=== PATIENT | male | born 1940 | race Caucasian/White ===

== ENCOUNTER 2016-07-20 02:12 | Observation (INO) | payer MEDICARE, BC ==
[~2016-07-20] VITALS: Ht 191.8 cm; Wt 111.4 kg
[2016-07-20] VITALS (8 sets, daily range): BP systolic 86–125; BP diastolic 55–70; PULSE 72–116; RESP 14–20; TEMP 97.6–98.8; O2SAT 92–98; Ht 191.8 cm; Wt 111.4 kg
[~2016-07-20 02:12] MED LIST: GLYB2.5T5 PO; METF10002 PO; WARF5TAB76 PO
--- OUTSIDE RECORDS SUMMARY | 2016-07-20 02:25 | XMS REPORT | Referral Summary ---
Author Author [facility] Organization [facility] Address Unknown Phone Unavailable Care Team Providers Care Clinical Dermatologist Name Role Phone Cj Hilliard Primary Care Physician [phone] Encounter VC Date(s): 08/04/15 - 08/04/15 [facility] [address] [place] [address] [place] [id number] Discharge Diagnosis: CA skin, basal cell Discharge Disposition: -Home or Self Care Attending Physician: Frederick Couch MD Admitting Physician: Frederick Couch MD Referring Physician: Markie Hilliard MD Vital Signs Most recent to 1 oldest [Reference Range]: Temperature Tympanic 36.6 degC [36.6-38.1 degC] (08/04/15 9:23 AM) Blood Pressure 118/68 mmHg [90-140/60-90 mmHg] (08/04/15 9:23 AM) Problem List Condition Effective Dates Status Health Status Informant CA skin, basal < 05/29/14 Resolved cell(Confirmed) Hypotestosteronism(C Active onfirmed)1 Right leg Active DVT(Confirmed) Diabetic Active neuropathy(Confirmed ) Fatigue(Confirmed) Active Anticoagulant Active long-term use(Confirmed) Personal history of Active DVT (deep vein thrombosis)(Confirme d) Hyperlipemia(Confirm Active ed) Myofascitis(Confirme < 05/19/14 Resolved d)2 Osteoarthritis(Confi Active rmed) Muscle weakness of Active lower extremity(Confirmed) Pulmonary Active embolus(Confirmed) Spinal 01/19/14 - 05/19/14 Resolved enthesopathy(Confirm ed)3 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 Injected Decadron 4, Depomedrol 80 09/30/12 32 trigger pt injections 4scalp lesion. Wide excision. Margin negative except actinic keratosis Allergies, Adverse Reactions, Alerts No Known Medication Allergies Medications acetaminophen 500 mg oral tablet 2 tabs, Oral, q6hr, as needed for pain, 0 Refill(s) Start Date: 04/27/14 Status: Ordered glimepiride 1 mg oral tablet 1 mg 1 tabs, Oral, Daily, # 90 tabs, 0 Refill(s), Pharmacy: [id number], 1 tabs Oral Daily Start Date: 06/28/15 Status: Ordered metFORMIN 1000 mg oral tablet 1,000 mg 1 tabs, Oral, BID, # 180 tabs, 3 Refill(s), Pharmacy: [facility], 1 tabs Oral BID Start Date: 06/28/15 Status: Ordered True track test strips True track test strips, See Instructions, check blood sugar once a day. DX: 250.00, # 100 Each, 2 Refill(s), Pharmacy: [facility] [place] [id number], check blood sugar once a day. DX: 250.00 Start Date: 11/30/14 Status: Ordered warfarin 2 mg oral tablet See Instructions, 3 tabs mg Oral 4 days per week or as directed, # 90 tabs, 6 Refill(s), Pharmacy: [facility], 3 tabs mg Oral 4 days per week or as directed Start Date: 09/29/14 Status: Ordered warfarin 5 mg oral tablet 5 mg 1 tabs, Oral, 3x/Wk, Take 1 tab 3 times a week or as directed, # 90 tabs, 3 Refill(s), Pharmacy: [facility], 1 tabs Oral 3x/Wk,Instr:Take 1 tab 3 times a week or as directed Start Date: 09/29/14 Status: Ordered Results No data available for this section Immunizations Vaccine Date Refusal Reason influenza virus vaccine, inactivated 02/06/14 zoster vaccine live 04/27/14 Procedures Procedure Date Related Diagnosis Body Site Excision of lesion of fascia of hand1 1BASEL CELL OF LEFT HAND EXCISED 05/28 Social History Social History Type Response Smoking Status Never smoker Assessment and Plan Extracted from: Title: Office Visit Note Author: Frederick Couch MD Date: 08/04/15 Assessment/Plan 1.CA skin, basal cell Ordered: Office Visit Level 3 Est 82454 Plan:Option ofreexcision versusclose clinical follow-up was discussed with patient. Patient elected to proceed withsurgical excision. I did go over with the patient his pathology report that returned revealing that of a basal cell carcinomawith positive margins. I informed the patient that as a general rule basal cell carcinoma does not have the potential to metastasize. I informed the patientthat I felt that we had a few options available to us at this time. One option would be to proceed with reexcisionto obtain clear margins. Second option would be to follow him from a clinical standpointand only proceed with reexcisionif there was evidence for recurrence. Pros and cons of these options were discussed with the patient. Patient understood and wishedto proceed with reexcision. The area of concern was prepped and draped in sterile fashion. One percent lidocaine with epinephrine was injected circumferentially around the skin lesion. The prior surgical incision sitewas excised in a standard elliptical fashion. The elliptical incision was 1.5 cm in width and 3 cm in length. Hemostasis obtained with electrocautery. The incision was closed in layers with 4-0 Vicryl subcuticular stitches and 4-0 Prolene for skin edges. The patient was given post excision instruction and told to return to the clinic in 10-14 days, or sooner if any concerns arise.
--- OUTSIDE RECORDS SUMMARY | 2016-07-20 02:25 | XMS REPORT | Referral Summary ---
Author Author [facility] Organization [facility] Address Unknown Phone Unavailable Care Team Providers Care Inspector Fabric Name Role Phone Cj Hilliard Primary Care Physician [phone] Encounter VC Date(s): 12/15/15 - 12/15/15 [facility], [address] [place] [id number] Discharge Disposition: 01-Home or Self Care Attending Physician: Markie Hilliard MD Admitting Physician: Markie Hilliard MD Vital Signs Most recent to 1 oldest [Reference Range]: Blood Pressure 128/70 mmHg [90-140/60-90 mmHg] (12/15/15 9:44 AM) Problem List Condition Effective Dates Status Health Status Informant CA skin, basal < 05/29/14 Resolved cell(Confirmed) Chronic back Active pain(Confirmed) Hypotestosteronism(C Active onfirmed)1 Right leg Active DVT(Confirmed) Diabetic Active neuropathy(Confirmed ) Fatigue(Confirmed) Active Anticoagulant Active long-term use(Confirmed) Personal history of Active DVT (deep vein thrombosis)(Confirme d) Chronic right hip Active pain(Confirmed) Hyperlipemia(Confirm Active ed) Myofascitis(Confirme < 05/19/14 Resolved d)2 Osteoarthritis(Confi Active rmed) Muscle weakness of Active lower extremity(Confirmed) Pulmonary Active embolus(Confirmed) Solar Active elastosis(Confirmed) Spinal 01/19/14 - 05/19/14 Resolved enthesopathy(Confirm ed)3 [...] 0 Refill(s) Start Date: 04/27/14 Status: Ordered Amaryl 1 mg oral tablet 1 mg 1 tabs, Oral, BID, NOTE DOSE CHANGE, # 180 tabs, 0 Refill(s), [facility], 1 tabs Oral BID,x90 days,Instr:NOTE DOSE CHANGE Start Date: 09/08/15 Stop Date: 12/07/15 Status: Ordered metFORMIN 1000 mg oral tablet 1,000 mg 1 tabs, Oral, BID, DX: E11.9, # 180 tabs, 0 Refill(s), Pharmacy: [facility], 1 tabs Oral BID,Instr:DX: E11.9 Start Date: 11/09/15 Status: Ordered Test Strips Test Strips, See Instructions, Uses Freestyle [place] Lite to check blood glucose daily for ICD 10-E11.9. Do not fill until patient requests. thanks, # 100 Each, 4 Refill(s), [facility] [address], Uses Freestyle [place] Lite to check... Start Date: 12/15/15 Status: Ordered True track test strips True track test strips, See Instructions, check blood sugar once a day. DX: 250.00, # 100 Each, 2 Refill(s), Pharmacy: [facility] [id number], check blood sugar once a day. DX: 250.00 Start Date: 11/30/14 Status: Ordered warfarin 2 mg oral tablet See Instructions, TAKE THREE TABLETS BY MOUTH ONCE DAILY FOR 4 DAYS PER WEEK OR DIRECTED, # 90 tabs, eRx: [facility], TAKE THREE TABLETS BY MOUTH ONCE DAILY FOR 4 DAYS PER WEEK OR DIRECTED Start Date: 11/26/15 Status: Ordered Results Coagulation Most recent to 1 oldest [Reference Range]: PT Venous (12/15/15 10:20 AM) INR [0.8-1.2] 2.4 1 *HI* (12/15/15 10:20 AM) 1Result Comment: Normal (no anticoagulant): 0.8 - 1.2 Units Routine Therapeutic Range: 2.0 - 3.0 Units High Risk Therapeutic Range: 2.5 - 3.5 Units Chemistry Most recent to 1 oldest [Reference Range]: Sodium Lvl [135-144 140 mEq/L mEq/L] (12/15/15 10:20 AM) Potassium Lvl 4.4 mEq/L [3.5-5.2 mEq/L] (12/15/15 10:20 AM) Chloride [99-111 105 mEq/L mEq/L] (12/15/15 10:20 AM) CO2 [23-31 mEq/L] 27 mEq/L (12/15/15 10:20 AM) AGAP [3-20] 8 (12/15/15 10:20 AM) BUN [8-26 mg/dL] 14 mg/dL (12/15/15 10:20 AM) Glucose Lvl [70-99 147 mg/dL mg/dL] *HI* (12/15/15 10:20 AM) Creatinine Lvl 0.93 mg/dL [0.72-1.25 mg/dL] (12/15/15 10:20 AM) eGFR [>60 mL/min] >60 mL/min 1 (12/15/15 10:20 AM) Calcium Lvl 9.1 mg/dL [8.9-10.5 mg/dL] (12/15/15 10:20 AM) Albumin Lvl [3.4-4.8 4.1 gm/dL gm/dL] (12/15/15 10:20 AM) Total Protein 6.4 gm/dL 2 [6.0-7.6 gm/dL] (12/15/15 10:20 AM) Globulin [1.8-4.0 2.3 gm/dL gm/dL] (12/15/15 10:20 AM) ALT [0-55 U/L] 29 U/L (12/15/15 10:20 AM) AST [5-34 U/L] 26 U/L (12/15/15 10:20 AM) Alk Phos [40-150 82 U/L U/L] (12/15/15 10:20 AM) Bili Total [0.2-1.2 1.6 mg/dL mg/dL] *HI* (12/15/15 10:20 AM) TSH with Reflex Free 2.57 T4 [0.35-4.94] (12/15/15 10:20 AM) Hgb A1c [4.1-5.6 %] 7.2 % *HI* (12/15/15 10:20 AM) eAvg Glucose 159.9 mg/dL (12/15/15 10:20 AM) 1Result Comment: Multiply eGFR results by 1.21 for race. 2Result Comment: Please note new reference range for adult Protein. Immunizations Vaccine Date Refusal Reason influenza virus vaccine, inactivated 02/06/14 zoster vaccine live 04/27/14 Procedures Procedure Date Related Diagnosis Body Site Excision of lesion of fascia of hand1 1BASEL CELL OF LEFT HAND EXCISED 05/28 Social History Social History Type Response Smoking Status Never smoker Assessment and Plan Extracted from: Title: Ambulatory Patient Education Author: Markie Hilliard MD Date: 12/15/15 Family Medicine Back Exercises Back exercises help treat and prevent back injuries. The goal of back exercises is to increase the strength of your abdominal and back muscles and the flexibility of your back. These exercises should be started when you no longer have back pain. Back exercises include: Pelvic Tilt. Lie on your back with your knees bent. Tilt your pelvis until the lower part of your back is against the floor. Hold this position 5 to 10 sec and repeat 5 to 10 times. Knee to Chest. Pull first 1 knee up against your chest and hold for 20 to 30 seconds, repeat this with the other knee, and then both knees. This may be done with the other leg straight or bent, whichever feels better. Sit-Ups or Curl-Ups. Bend your knees 90 degrees. Start with tilting your pelvis, and do a partial, slow sit-up, lifting your trunk only 30 to 45 degrees off the floor. Take at least 2 to 3 seconds for each sit-up. Do not do sit-ups with your knees out straight. If partial sit-ups are difficult, simply do the above but with only tightening your abdominal muscles and holding it as directed. Hip-Lift. Lie on your back with your knees flexed 90 degrees. Push down with your feet and shoulders as you raise your hips a couple inches off the floor; hold for 10 seconds, repeat 5 to 10 times. Back arches. Lie on your stomach, propping yourself up on bent elbows. Slowly press on your hands, causing an arch in your low back. Repeat 3 to 5 times. Any initial stiffness and discomfort should lessen with repetition over time. Shoulder-Lifts. Lie face down with arms beside your body. Keep hips and torso pressed to floor as you slowly lift your head and shoulders off the floor. Do not overdo your exercises, especially in the beginning. Exercises may cause you some mild back discomfort which lasts for a few minutes; however, if the pain is more severe, or lasts for more than 15 minutes, do not continue exercises until you see your caregiver. Improvement with exercise therapy for back problems is slow. See your caregivers for assistance with developing a proper back exercise program. This information is not intended to replace advice given to you by your health care provider. Make sure you discuss any questions you have with your health care provider. Document Released: 06/07/2005 Document Revised: 07/22/2012 Document Reviewed: [facility] Patient Information 2016 [employer]. No follow up information was provided. Extracted from: Title: Office Visit Note Author: Markie Hilliard MD Date: 12/15/15 Assessment/Plan Acute headache The patient's issue is nearly or completely resolved. There is no further issues or testing desired by them at this time. See ER note above. Anticoagulant long-term use This issue was reviewed, appears stable, and current therapy continued except as mentioned. Appropriate lab was reviewed from the most recent appropriate entry and lab was ordered if needed in the cpoe /nursing orders, and follow up recommended generally in 90 days and no later then six months. Protime pending. We discussed several options for treatment for this condition. The patient declined any changes or other treatments at this time. Considerxarelto when interested due to trouble with transportation. Chronic back pain This issue was reviewed, appears stable, and current therapy continued except as mentioned. Appropriate lab was reviewed from the most recent appropriate entry and lab was ordered if needed in the cpoe/nursing orders, and follow up recommended generally in 90 days and no later then six months. IMPRESSION: 1. 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 2. Degenerative disc disease throughout with hypertrophic bony lipping of the endplates. 3. Sclerotic degenerative changes the SI joints bilaterally. [1] Chronic right hip pain This issue was reviewed, appears stable, and current therapy continued except as mentioned. Appropriate lab was reviewed from the most recent appropriate entry and lab was ordered if needed in the cpoe/nursing orders, and follow up recommended generally in 90 days and no later then six months. Fatigue Lab pending. Pulmonary embolus This issue was reviewed, appears stable, and current therapy continued except as mentioned. Appropriate lab was reviewed from the most recent appropriate entry and lab was ordered if needed in the cpoe/nursing orders, and follow up recommended generally in 90 days and no later then six months. Stable on coumadin. TIA (transient ischemic attack) The patient's issue is nearly or completely resolved. There is no further issues or testing desired by them at this time. Type 2 diabetes, controlled, with peripheral neuropathy This issue was reviewed, appears stable, and current therapy continued except as mentioned. Appropriate lab was reviewed from the most recent appropriate entry and lab was ordered if needed in the cpoe/nursing orders, and follow up recommended generally in 90 days and no later then six months. The patient was notified for the need for regular quarterly f/u of their diabetes. Further any pertinent medication, supplies, etc were refilled. Additionally, they are to have annual eye exams, foot exams, and regular care. Lab pending. Addendum Samples of the new medication were provided as a courtesy. Side effects were discussed and by follow up was recommended. He wanted a new glucometer. Freestyle was given as a trial. Markie Hilliard MD on December 15, 2015 10:03:17 CDT
--- OUTSIDE RECORDS SUMMARY | 2016-07-20 02:25 | XMS REPORT | Referral Summary ---
Author Author [facility] Organization [facility] Address Unknown Phone Unavailable Care Team Providers Care Equipment Cleaner Name Role Phone Cj Hilliard Primary Care Physician [phone] Encounter VC Date(s): 12/15/15 - 12/15/15 [facility] [address] [place] [address] [place] [id number] Discharge Diagnosis: Changing pigmented skin lesion Discharge Diagnosis: History of basal cell cancer Discharge Disposition: 01-Home or Self Care Attending Physician: Frederick Zhou MD Admitting Physician: Frederick Zhou MD Vital Signs Most recent to 1 oldest [Reference Range]: Temperature Tympanic 35.9 degC [36.6-38.1 degC] *LOW* (12/15/15 9:07 AM) Peripheral Pulse 80 bpm Rate [60-100 bpm] (12/15/15 9:07 AM) Blood Pressure 128/70 mmHg [90-140/60-90 mmHg] (12/15/15 9:07 AM) Problem List Condition Effective Dates Status [...] CHANGE, # 180 tabs, 0 Refill(s), Pharmacy: [facility], 1 tabs Oral BID,x90 days,Instr:NOTE DOSE CHANGE Start Date: 09/08/15 Stop Date: 12/07/15 Status: Ordered metFORMIN 1000 mg oral tablet 1,000 mg 1 tabs, Oral, BID, DX: E11.9, # 180 tabs, 0 Refill(s), Pharmacy: [facility], 1 tabs Oral BID,Instr:DX: E11.9 Start Date: 11/09/15 Status: Ordered Test Strips Test Strips, See Instructions, Uses Freestyle [place] Lite to check blood glucose daily for ICD 10-E11.9. Do not fill until patient requests. thanks, # 100 Each, 4 Refill(s), Pharmacy: [facility] [id number], Uses Freestyle [place] Lite to check... Start Date: 12/15/15 Status: Ordered True track test strips True track test strips, See Instructions, check blood sugar once a day. DX: 250.00, # 100 Each, 2 Refill(s), Pharmacy: [facility] [id number], check blood sugar once a day. DX: 250.00 Start Date: 11/30/14 Status: Ordered warfarin 2 mg oral tablet See Instructions, TAKE THREE TABLETS BY MOUTH ONCE DAILY FOR 4 DAYS PER WEEK OR DIRECTED, # 90 tabs, eRx: [facility], TAKE THREE TABLETS BY MOUTH ONCE DAILY FOR 4 DAYS PER WEEK OR DIRECTED Start Date: 11/26/15 Status: Ordered Results No data available for [...] Extracted from: Title: Ambulatory Patient Education Author: Frederick Zhou MD Date: 12/14 [facility] Basal Cell Carcinoma Basal cell carcinoma is the most common form of skin cancer. It begins in the basal cells, which are at the bottom of the outer skin layer (epidermis). CAUSES Sun exposure is the most common cause of basal cell carcinoma. Basal cell carcinoma occurs most often on parts of the body that are frequently exposed to the sun, including the: Scalp. Ears. Neck. Face. Arms. Backs of the hands. Legs. However, basal cell carcinoma can occur anywhere on the body. Rarely, tumors develop on areas not exposed to the sun. Other causes of basal cell carcinoma can include: Exposure to arsenic. Exposure to radiation. Certain genetic syndromes, such as xeroderma pigmentosum. RISK FACTORS People at highest risk for basal cell carcinoma include those with: Fair skin. Blonde or red hair. Blue, green, or yoo eyes. Childhood freckling. Factors that increase your risk for basal cell carcinoma include: Sun exposure over long periods of time. Childhood sun exposure appears to be a more significant factor than sun exposure as an adult. Repeated sunburns. Use of tanning beds. Having a weakened immune system. SYMPTOMS Five signs of basal cell carcinoma are: An open sore that bleeds, oozes, or crusts. The sore may remain open for 3 or more weeks. This can be an early sign of basal cell carcinoma. Basal cell carcinoma can mimic a pimple that will not heal. A reddish or irritated area which may crust, itch, or cause discomfort. This may occur on areas expose d to the sun. These patches might be easier felt than seen. A shiny, pearly, or translucent bump that is pink, red, or white. The bump may also be sesay, black, or brown, especially in dark haired people. These bumps can be confused with moles. A pink growth with a slightly elevated, rolled border, and a crusted indentation in the center. As the growth slowly enlarges, tiny blood vessels may develop on the surface. A scar-like white, yellow, or waxy area that looks like shiny, stretched skin. It often has irregular borders. This may be a sign of more aggressive basal cell carcinoma. DIAGNOSIS Your caregiver may be able to tell what is wrong by doing a physical exam. Often , a tissue sample (biopsy) is also taken. The tissue is examined under a microscope. TREATMENT The treatment for basal cell carcinoma depends on the type, size, location, and number of tumors. Possible treatments include: Mohs surgery. This is a procedure done by a skin doctor (dispersion mixer or Mohs surgeon) in his or her office. The cancerous cells are removed layer by layer. This treatment has a high cure rate. Surgical removal of the tumor. Freezing the tumor with liquid nitrogen (cryosurgery). Plastic surgery to remove the tumor, in the case of large tumors. Radiation. This may be used for tumors on the face. Photodynamic therapy. A chemical cream is applied to the skin and light exposure is used to activate the chemical. Chemical treatments, such as imiquimod cream and interferon injections. This may be used to remove superficial tumors with minimal scarring. Electrodesiccation and curettage. This involves alternately scraping and burning the tumor, using an electric current to control bleeding. Basal cell carcinoma can almost always be cured. It rarely spreads to other areas of the body (metastasizes). Basal cell carcinoma may come back at the same location (recur), but it can be treated again if this occurs. PREVENTION Avoid the sun between 10:00 a.m. and 4:00 pm when it is the strongest. Use a sunscreen or sunblock with a sun protection factor of 30 or greater. Apply sunscreen at least 30 minutes before exposure to the sun. Reapply sunscreen every 2 to 4 hours while you are outside, after swimming, and after excessive sweating. Always wear protective hats, clothing, and sunglasses with ultraviolet protection. Avoid tanning beds. HOME CARE INSTRUCTIONS Avoid unprotected sun exposure. Follow your caregiver's instructions for self-exams. Look for new spots or changes in your skin. Keep all follow-up appointments as directed by your caregiver. SEEK MEDICAL CARE IF: You notice any new spots or changes in your skin. You have had a basal cell carcinoma tumor removed and you notice a new growth in the same location. This information is not intended to replace advice given to you by your health care provider. Make sure you discuss any questions you have with your health care provider. Document Released: 11/04/2003 Document Revised: 10/29/2012 Document Reviewed: [employer] Patient Information [address] [employer] [facility]. No follow up information was provided. Extracted from: Title: Office Visit Note Author: Frederick Zhou MD Date: 12/15/15 Assessment/Plan 1.Changing pigmented skin lesion Ordered: Office Visit Level 3 Est 34581 2.History of basal cell cancer Ordered: Office Visit Level 3 Est 54107 Plan: Excisional biopsyof suspicious skin [id number] left scapular region. I did reviewpatient's chartincluding anote performed by PCPs soap tender from September 06, 2015.I informed the patientthat I would recommend that we excise the skin lesions from the left scapular regionsecondary the fact that they are changing in their overall appearanceand are suspicious in naturefrom a physical donation standpoint.Patient understood and wished to proceed. The area of concern was prepped and draped in sterile fashion. One percent lidocaine with epinephrine was injected circumferentially around the skin lesion. Both skin lesions wereexcised in a standardsingle elliptical incision. The elliptical incision was 2.5 cm in width and 4 cm in length. The incision was closed in layers with 3-0 Vicryl subcuticular stitches and 4-0 Prolene for skin edges. The patient was given post excision instruction and told to return to the clinic December 03, or sooner if any concerns arise.
--- OUTSIDE RECORDS SUMMARY | 2016-07-20 02:25 | XMS REPORT | Referral Summary ---
Author Author [facility] Organization [facility] Address Unknown Phone Unavailable Care Team Providers Care Central Supply Clerk Name Role Phone Cj Hilliard Primary Care Physician [phone] Encounter VC Date(s): 03/20/16 - 03/20/16 [facility], [address] [place] [address] Discharge Disposition: 01-Home or Self Care Attending Physician: Markie Hilliard MD Admitting Physician: Markie Hilliard MD Vital Signs No data available for this section Problem List Condition Effective Dates Status Health [...] CHANGE, # 180 tabs, 0 Refill(s), Pharmacy: [facility], 1 tabs Oral BID,x90 days,Instr:NOTE DOSE CHANGE Start Date: 09/08/15 Stop Date: 12/07/15 Status: Ordered metFORMIN 1000 mg oral tablet 1,000 mg 1 tabs, Oral, BID, DX: E11.9, # 180 tabs, 0 Refill(s), Pharmacy: [facility], 1 tabs Oral BID,Instr:DX: E11.9 Start Date: 11/09/15 Status: Ordered metFORMIN 1000 mg oral tablet See Instructions, TAKE ONE TABLET BY MOUTH TWICE DAILY, # 180 tabs, eRx: [facility], TAKE ONE TABLET BY MOUTH TWICE DAILY Start Date: 03/16/16 Status: Ordered Test Strips Test Strips, See Instructions, Uses Freestyle [place] Lite to check blood glucose daily for ICD 10-E11.9. Do not fill until patient requests. thanks, # 100 Each, 4 Refill(s), Pharmacy: [facility] [id number], Uses Freestyle [place] Lite to check... Start Date: 12/15/15 Status: Ordered True track test strips True track test strips, See Instructions, check blood sugar once a day. DX: 250.00, # 100 Each, 2 Refill(s), [facility] [address], check blood sugar once a day. DX: 250.00 Start Date: 11/30/14 Status: Ordered warfarin 2 mg oral tablet See Instructions, TAKE THREE TABLETS BY MOUTH ONCE DAILY FOR 4 DAYS PER WEEK OR DIRECTED, # 90 tabs, eRx: [facility], TAKE THREE TABLETS BY MOUTH ONCE DAILY FOR 4 DAYS PER WEEK OR DIRECTED Start Date: 02/18/16 Status: Ordered Results No data available for this section Immunizations Vaccine Date Refusal Reason influenza virus vaccine, inactivated 03/20/16 influenza virus vaccine, inactivated 02/06/14 zoster vaccine live 04/27/14 Procedures Procedure Date Related Diagnosis Body Site Squamous cell cancer of skin of face1 02/02/16 Excision of lesion of fascia of hand2 1Left jaw, completely excised 2BASEL CELL OF LEFT HAND EXCISED 05/28 Social History Social History Type Response Smoking Status Never smoker Assessment and Plan No data available for this section
--- OUTSIDE RECORDS SUMMARY | 2016-07-20 02:25 | XMS REPORT | Referral Summary ---
Author Author [facility] Organization [facility] Address Unknown Phone Unavailable Care Team Providers Care Chopper Operator Name Role Phone Cj Hilliard Primary Care Physician [phone] Encounter VC Date(s): 02/15/16 - 02/15/16 [facility] [address] [place] [address] [place] [address]- Discharge Diagnosis: Visit for suture removal Discharge Diagnosis: Squamous cell carcinoma of skin of other parts of face Discharge Diagnosis: Cancer of skin, squamous cell Discharge Disposition: 01-Home or Self Care Attending Physician: Beverly Yu APRN Admitting Physician: Beverly Yu APRN Vital Signs Most recent to 1 oldest [Reference Range]: Temperature Tympanic 36.4 degC [36.6-38.1 degC] *LOW* (02/15/16 10:38 AM) Apical Heart Rate 91 bpm [60-100 bpm] (02/15/16 10:38 AM) SpO2 98 % (02/15/16 10:38 AM) Problem List Condition Effective Dates Status [...] CHANGE, # 180 tabs, 0 Refill(s), [facility], 1 tabs Oral BID,x90 days,Instr:NOTE DOSE CHANGE Start Date: 09/08/15 Stop Date: 12/07/15 Status: Ordered metFORMIN 1000 mg oral tablet 1,000 mg 1 tabs, Oral, BID, DX: E11.9, # 180 tabs, 0 Refill(s), Pharmacy: [facility], 1 tabs Oral BID,Instr:DX: E11.9 Start Date: 11/09/15 Status: Ordered Test Strips Test Strips, See Instructions, Uses Freestyle [place] Lite to check blood glucose daily for ICD 10-E11.9. Do not fill until patient requests. thanks, # 100 Each, 4 Refill(s), Pharmacy: [facility] [id number], Uses Freestyle [place] Lite to check... Start Date: 12/15/15 Status: Ordered True track test strips True track test strips, See Instructions, check blood sugar once a day. DX: 250.00, # 100 Each, 2 Refill(s), Pharmacy: [facility] [id number], check blood sugar once a day. DX: 250.00 Start Date: 11/30/14 Status: Ordered warfarin 2 mg oral tablet See Instructions, TAKE THREE TABLETS BY MOUTH ONCE DAILY FOR 4 DAYS PER WEEK OR DIRECTED, # 90 tabs, eRx: [facility], TAKE THREE TABLETS BY MOUTH [...] Extracted from: Title: Ambulatory Patient Education Author: Beverly Yu ELECTRICIAN SUBSTATION Date : 02/15/16 [facility] Squamous Cell Carcinoma Squamous cell carcinoma is the second most common form of skin cancer. It begins in the squamous cells in the outer layer of the skin (epidermis). CAUSES Ultraviolet light exposure is the most common cause of squamous cell carcinoma. This may come from sunlight or tanning beds. Squamous cell carcinoma is most common in sun-exposed areas like the face, neck, arms, and hands. However, squamous cell carcinoma can occur anywhere on the body, including the lips, inside the mouth, the legs, sites of long-term (chronic) scarring, and the anus. Other causes of squamous cell carcinoma can include: Exposure to arsenic. Exposure to radiation. Exposure to toxic tars and oils. RISK FACTORS Factors that increase your risk for squamous cell carcinoma include: Having fair skin. Being middle-aged or elderly. Heavy sun exposure, especially during childhood. Repeated sunburns. Use of tanning beds. A weakened immune system. This includes patients who have received a transplant and patients with human immunodeficiency virus (HIV) or acquired immunodeficiency syndrome (AIDS). Human papillomavirus infection. Conditions that cause chronic scarring. This can include burn scars, chronic ulcers, heat (thermal) injuries, and radiation. Exposure to psoralen plus ultraviolet A light therapy. Exposure to chemical carcinogens, such as tar, soot, and arsenic. Chronic inflammatory conditions such as lupus, lichen planus, or lichen sclerosus. Chronic infections, such as infections of the bone (osteomyelitis). Smoking. SYMPTOMS Squamous cell carcinoma often starts as small, skin-colored (pink or brown), sandpaper-like growths. These growths are called solar keratoses or actinic keratoses. These growths are often more easily felt than seen. DIAGNOSIS Your caregiver may be able to tell what is wrong by doing a physical exam. Often , a tissue sample is also taken. The tissue sample is examined under a microscope. TREATMENT The treatment for squamous cell carcinoma depends on the size and location of the tumors, as well as your overall health. Possible treatments include: Mohs surgery. This is a procedure done by a skin doctor (research laboratory manager or Mohs surgeon) in his or her office. The cancerous cells are removed layer by layer. Laser surgery to remove the tumor. Freezing the tumor with liquid nitrogen (cryosurgery). Radiation. This may be used for tumors on the face. Electrodesiccation and curettage. This involves alternately scraping and burning the tumor, using an electric current to control bleeding. If treated soon enough, squamous cell carcinoma rarely spreads to other areas of the body (metastasizes). If left untreated, however, squamous cell carcinoma will destroy the nearby tissues. This can result in the loss of a nose or ear. PREVENTION Avoid the sun between 10:00 a.m. and 4:00 p.m. when it is the strongest. Use a sunscreen or sunblock with sun protection factor 30 or greater. Apply sunscreen at least 30 minutes before exposure to the sun. Reapply sunscreen every 2 to 4 hours while you are outside, after swimming, and after excessive sweating. Always wear protective hats, clothing, and sunglasses with ultraviolet protection. Avoid tanning beds. HOME CARE INSTRUCTIONS Avoid unprotected sun exposure. Do not smoke. Follow your caregiver's instructions for self-exams. Look for new growths or changes in your skin. Keep all follow-up appointments as directed by your caregiver. SEEK MEDICAL CARE IF: You notice any new growths or changes in your skin. You have had a squamous cell carcinoma tumor removed and you notice a new growth in the same location. This information is not intended to replace advice given to you by your health care provider. Make sure you discuss any questions you have with your health care provider. Document Released: 11/04/2003 Document Revised: 05/21/2015 Document Reviewed: ExitCare Patient Information 2016 [employer] [facility]. No follow up information was provided. Extracted from: Title: Office Visit Note Author: Beverly Yu APRN Date: 02/15/16 Assessment/Plan 1.Visit for suture removal Sutures removed without difficulty and antibiotic ointment applied. 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 Return to our office if he see any additional suspicious lesions. Ordered: Postoperative Est 15631
--- OUTSIDE RECORDS SUMMARY | 2016-07-20 02:25 | XMS REPORT | Referral Summary ---
Author Author [facility] Organization [facility] Address Unknown Phone Unavailable Care Team Providers Care Design Engineer Products Name Role Phone Cj Hilliard Primary Care Physician [phone] Encounter VC Date(s): 02/02/16 - 02/02/16 [facility] [address] [place] [address] [place] [phone]- Discharge Diagnosis: Changing skin lesion Discharge Diagnosis: History of basal cell carcinoma of skin Discharge Disposition: 01-Home or Self Care Attending Physician: Frederick Zhou MD Admitting Physician: Frederick Zhou MD Vital Signs Most recent to 1 oldest [Reference Range]: Temperature Tympanic 36.3 degC [36.6-38.1 degC] *LOW* (02/02/16 1:27 PM) Respiratory Rate 18 br/min [14-20 br/min] (02/02/16 1:27 PM) Blood Pressure 112/70 mmHg [90-140/60-90 mmHg] (02/02/16 1:27 PM) Problem List Condition Effective Dates Status Health [...] CHANGE, # 180 tabs, 0 Refill(s), Pharmacy: [facility], 1 tabs Oral BID,x90 days,Instr:NOTE DOSE CHANGE Start Date: 09/08/15 Stop Date: 12/07/15 Status: Ordered metFORMIN 1000 mg oral tablet 1,000 mg 1 tabs, Oral, BID, DX: E11.9, # 180 tabs, 0 Refill(s), Pharmacy: [facility], 1 tabs Oral BID,Instr:DX: E11.9 Start Date: 11/09/15 Status: Ordered Test Strips Test Strips, See Instructions, Uses Freestyle [place] Lite to check blood glucose daily for ICD 10-E11.9. Do not fill until patient requests. thanks, # 100 Each, 4 Refill(s), Pharmacy: [facility] [id number], Uses Freestyle [place] Lite to check... Start Date: 12/15/15 Status: Ordered True track test strips True track test strips, See Instructions, check blood sugar once a day. DX: 250.00, # 100 Each, 2 Refill(s), Pharmacy: [facility] [address], check blood sugar once a day. DX: 250.00 Start Date: 11/30/14 Status: Ordered warfarin 2 mg oral tablet See Instructions, TAKE THREE TABLETS BY MOUTH ONCE DAILY FOR 4 DAYS PER WEEK OR DIRECTED, # 90 tabs, eRx: [facility], TAKE THREE TABLETS BY MOUTH [...] Patient Education Author: Frederick Zhou MD Date: [facility] Basal Cell Carcinoma Basal cell carcinoma is [...] a procedure done by a skin doctor (dairy equipment mechanic or Mohs surgeon) in his or her [...] 10/29/2012 Document Reviewed: ExitCare Patient Information 2016 [employer]. No follow up information was provided. Extracted from: Title: Office Visit Note Author: Frederick Zhou MD Date: 02/02/16 Assessment/Plan 1.Changing skin lesion Ordered: Office Visit Level 3 Est 20664 2.History of basal cell carcinoma of skin Ordered: Office Visit Level 3 Est 56071 Plan: Excisional Biopsy of Skin Lesion Involving Left Mandibular Region: I informed the patient that this skin lesion does appear slightly suspicious in natureand I would recommend proceeding with excisional biopsy. Patient understood and wished to proceed. The area of concern was prepped and draped in sterile fashion. One percent lidocaine with epinephrine was injected circumferentially around the skin lesion. The lesion was excised in a standard elliptical fashion. The elliptical incision was 1 cm in width and 1.5 cm in length. Hemostasis obtained with electrocautery. The incision was closed in layers with 4-0 Vicryl subcuticular stitches and 4-0 Prolene for skin edges. The patient was given post excision instruction and told to return to the clinic in 10-14 days, or sooner if any concerns arise.
--- OUTSIDE RECORDS SUMMARY | 2016-07-20 02:25 | XMS REPORT | Referral Summary ---
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 Discharge Disposition: 01-Home or Self Care Attending Physician: Vini Garcia MD Admitting Physician: Vini Garcia MD Vital Signs Most recent to 1 oldest [Reference Range]: Temperature Tympanic 36.7 degC [36.6-38.1 degC] (03/01/15 11:34 AM) Peripheral Pulse 88 bpm Rate [60-100 bpm] (03/01/15 11:34 AM) Blood Pressure 136/84 mmHg [90-140/60-90 mmHg] (03/01/15 11:34 AM) Problem List Condition Effective Dates Status Health Status Informant Hypotestosteronism(C Active onfirmed)1 Right leg Active DVT(Confirmed) Fatigue(Confirmed) Active Anticoagulant Active long-term use(Confirmed) Personal history of Active DVT (deep vein thrombosis)(Confirme d) Hyperlipemia(Confirm Active ed) CA skin, basal < 05/29/14 Resolved cell(Confirmed) Myofascitis(Confirme < 05/19/14 Resolved d)2 Osteoarthritis(Confi Active [...] 0 Refill(s) Start Date: 04/27/14 Status: Ordered celecoxib 200 mg, Oral, BID, 0 Refill(s) Start Date: 04/27/14 Status: Ordered glimepiride 1 mg oral tablet tabs, Oral, Daily, 0 Refill(s) Start Date: 04/27/14 Status: Ordered metFORMIN 1000 mg oral tablet 1,000 mg 1 tabs, Oral, BID, # 180 tabs, 3 Refill(s), Pharmacy: [facility], 1 tabs Oral BID Start Date: 09/28/14 Status: Ordered predniSONE 10 mg oral tablet See Instructions, Take 6 tabs on day one and then decrease by one tablet daily until gone., # 21 tabs, 0 Refill(s), [facility]: [facility] [address], Take 6 tabs on day one and then decrease by one tablet daily until gone. Start Date: 03/01/15 Stop Date: 03/07/15 Status: Ordered True track test strips True track test strips, See Instructions, check blood sugar once a day. DX: 250.00, # 100 Each, 2 Refill(s), Pharmacy: [facility] [address], check blood sugar once a day. DX: 250.00 Start Date: 11/30/14 Status: Ordered warfarin 2 mg oral tablet See Instructions, 3 tabs mg Oral 4 days per week or as directed, # 90 tabs, 6 Refill(s), Pharmacy: [facility], 3 tabs mg Oral 4 days per week or as directed Start Date: 09/29/14 Status: Ordered warfarin 5 mg oral tablet 5 mg 1 tabs, Oral, 3x/Wk, Take 1 tab 3 times a week or as directed, # 90 tabs, 3 Refill(s), Pharmacy: [facility], 1 tabs Oral 3x/Wk,Instr:Take 1 tab 3 times a week or as directed Start Date: 09/29/14 Status: Ordered Results Hematology Most recent to 1 oldest [Reference Range]: Sed Rate [0-15] 6 (03/01/15 12:37 PM) Coagulation Most recent to 1 oldest [Reference Range]: PT Venous (03/01/15 12:37 PM) INR [0.8-1.2] 2.6 1 *HI* (03/01/15 12:37 PM) 1Result Comment: Normal (no anticoagulant): 0.8 - 1.2 Units Routine Therapeutic Range: 2.0 - 3.0 Units High Risk Therapeutic Range: 2.5 - 3.5 Units Chemistry Most recent to 1 oldest [Reference Range]: Sodium Lvl [135-144 141 mEq/L mEq/L] (03/01/15 12:37 PM) Potassium Lvl 4.0 mEq/L [3.5-5.2 mEq/L] (03/01/15 12:37 PM) Chloride [99-111 107 mEq/L mEq/L] (03/01/15 12:37 PM) CO2 [23-31 mEq/L] 27 mEq/L (03/01/15 12:37 PM) AGAP [3-20] 7 (03/01/15 12:37 PM) BUN [8-26 mg/dL] 14 mg/dL (03/01/15 12:37 PM) Glucose Lvl [70-99 221 mg/dL mg/dL] *HI* (03/01/15 12:37 PM) Creatinine Lvl 0.83 mg/dL [0.72-1.25 mg/dL] (03/01/15 12:37 PM) eGFR [>60 mL/min] >60 mL/min 1 (03/01/15 12:37 PM) Calcium Lvl 9.2 mg/dL [8.9-10.5 mg/dL] (03/01/15 12:37 PM) Albumin Lvl [3.4-4.8 4.1 gm/dL gm/dL] (03/01/15 12:37 PM) Total Protein 6.6 gm/dL [6.2-8.1 gm/dL] (03/01/15 12:37 PM) Globulin [1.8-4.0 2.5 gm/dL gm/dL] (03/01/15 12:37 PM) ALT [0-55 U/L] 23 U/L (03/01/15 12:37 PM) AST [5-34 U/L] 21 U/L 2 (03/01/15 12:37 PM) Alk Phos [40-150 75 U/L U/L] (03/01/15 12:37 PM) Bili Total [0.2-1.2 1.8 mg/dL mg/dL] *HI* (03/01/15 12:37 PM) Uric Acid [3.5-7.2 5.0 mg/dL mg/dL] (03/01/15 12:37 PM) Hgb A1c [4.1-5.6 %] 6.6 % *HI* (03/01/15 12:37 PM) eAvg Glucose 142.7 mg/dL (03/01/15 12:37 PM) 1Result Comment: Multiply eGFR results by 1.21 for race. 2Result Comment: Specimen slighly hemolyzed. LDH, AST and Direct Bilirubin may be affected. Immunizations Vaccine Date Refusal Reason influenza virus vaccine, inactivated 02/06/14 zoster vaccine live 04/27/14 Procedures Procedure Date Related Diagnosis Body Site Excision of lesion of fascia of hand1 1BASEL CELL OF LEFT HAND EXCISED 05/28 Social History Social History Type Response Smoking Status Never smoker Assessment and Plan Extracted from: Title: Office Visit Note Author: Vini Garcia MD Date: 03/01/15 Assessment/Plan Anticoagulant long-term use Arthritis of hand Personal history of DVT (deep vein thrombosis) Plan: Put through the notes when you established with Dr. Lopez a few months before he saw me. There is no clues as to why you are or long-term Coumadin. I suspect if you are on Coumadin and then were off for 6 months and then developed a DVT that this is perhaps a recurrent DVT and that would be why you' re on long-term Coumadin. Nonetheless long-term Coumadin makes it difficult for anti-inflammatory medication. I'm going to place you on a steroid taper for a week. I think it will cause your blood sugars to be quite a bit higher for a week and then they should gradually get back to normal. I noticed that it's been over 3 months since her last med checkup and so we'll set you up for follow-up for diabetes checkup. Regarding recurrent pain in your hand might consider Tylenol arthritis. We discussed the need to find a new primary care physician. Orders: predniSONE, See Instructions, Take 6 tabs on day one and then decrease by one tablet daily until gone., # 21 tabs, 0 Refill(s), Pharmacy: [facility] [id number], Take 6 tabs on day one and then decrease by one tablet daily until gone.
--- OUTSIDE RECORDS SUMMARY | 2016-07-20 02:26 | XMS REPORT | Referral Summary ---
Author Author [facility] Organization [facility] Address Unknown Phone Unavailable Care Team Providers Care Tattoo Designer Name Role Phone Cj Hilliard Primary Care Physician [phone] Encounter VC Date(s): 07/13/15 - 07/13/15 [facility] [address] [place] [address] [place] [address] Discharge Diagnosis: Skin cancer, basal cell Discharge Disposition: 01-Home or Self Care Attending Physician: Frederick Couch MD Admitting Physician: Frederick Couch MD Referring Physician: Markie Hilliard MD Vital Signs Most recent to 1 oldest [Reference Range]: Temperature Tympanic 36.5 degC [36.6-38.1 degC] *LOW* (07/13/15 2:56 PM) Problem List Condition Effective Dates Status [...] Daily, # 90 tabs, 0 Refill(s), [facility]acy[facility], 1 tabs Oral Daily Start Date: 06/28/15 Status: Ordered metFORMIN 1000 mg oral tablet 1,000 mg 1 tabs, Oral, BID, # 180 tabs, 3 Refill(s), [facility], 1 tabs Oral BID Start Date: 06/28/15 Status: Ordered True track test strips True track test strips, See Instructions, check blood sugar once a day. DX: 250.00, # 100 Each, 2 Refill(s), [facility] [address], check blood sugar once a day. DX: 250.00 Start Date: 11/30/14 Status: Ordered warfarin 2 mg oral tablet See Instructions, 3 tabs mg Oral 4 days per week or as directed, # 90 tabs, 6 Refill(s), Pharmacy: [facility], 3 tabs mg Oral 4 days per week or as directed Start Date: 09/29/14 Status: Ordered warfarin 5 mg oral tablet 5 mg 1 tabs, Oral, 3x/Wk, Take 1 tab 3 times a week or as directed, # 90 tabs, 3 Refill(s), [facility], 1 tabs Oral 3x/Wk,Instr:Take 1 [...]
--- OUTSIDE RECORDS SUMMARY | 2016-07-20 02:26 | XMS REPORT | Referral Summary ---
Author Author [facility] Organization [facility] Address Unknown Phone Unavailable Care Team Providers Care Broom Builder Name Role Phone Cj Hilliard Primary Care Physician [phone] Encounter VC Date(s): 06/06/16 - 06/06/16 [facility] [address] [place] [address] [place] [address]- Discharge Diagnosis: Visit for suture removal Discharge Disposition: 01-Home or Self Care Attending Physician: Beverly Yu APRN Admitting Physician: Beverly Yu APRN Referring Physician: Markie Hilliard MD Vital Signs Most recent to 1 oldest [Reference Range]: Temperature Tympanic 34.7 degC [36.6-38.1 degC] *LOW* (06/06/16 10:01 AM) Problem List Condition Effective Dates Status [...] Status: Ordered glimepiride 1 mg oral tablet See Instructions, TAKE ONE TABLET BY MOUTH TWICE DAILY, # 180 tabs, eRx: [facility] 2428 Start Date: 05/05/16 Status: Ordered metFORMIN 1000 mg oral tablet 1,000 mg 1 tabs, Oral, BID, DX: E11.9, # 180 tabs, 0 Refill(s), Pharmacy: [facility] 242, 1 tabs Oral BID,Instr:DX: E11.9 Start Date: 11/09/15 Status: Ordered metFORMIN 1000 mg oral tablet See Instructions, TAKE ONE TABLET BY MOUTH TWICE DAILY, # 180 tabs, eRx: [facility] 2428, TAKE ONE TABLET BY MOUTH TWICE DAILY Start Date: 03/16/16 Status: Ordered Test Strips Test Strips, See Instructions, Uses Freestyle [place] Lite to check blood glucose daily for ICD 10-E11.9. Do not fill until patient requests. thanks, # 100 Each, 4 Refill(s), Pharmacy: [facility] [id number], Uses Freestyle [place] Lite to check... Start Date: 12/15/15 Status: Ordered True track test strips True track test strips, See Instructions, check blood sugar once a day. DX: 250.00, # 100 Each, 2 Refill(s), Pharmacy: [facility], check blood sugar once a day. DX: 250.00 Start Date: 11/30/14 Status: Ordered warfarin 2 mg oral tablet See Instructions, TAKE THREE TABLETS BY MOUTH ONCE DAILY FOR 4 DAYS PER WEEK OR DIRECTED, # 90 tabs, eRx: [facility] 2428, TAKE THREE TABLETS BY MOUTH ONCE DAILY FOR 4 DAYS PER WEEK OR DIRECTED Start Date: 02/18/16 Status: Ordered warfarin 5 mg oral tablet See Instructions, TAKE ONE TABLET BY MOUTH THREE TIMES A WEEK OR DIRECTED, # 90 tabs, eRx: [facility] 2428, TAKE ONE TABLET BY MOUTH THREE TIMES A WEEK OR DIRECTED Start Date: 05/01/16 Status: Ordered Results No data available for this section Immunizations Given and Recorded Vaccine Date Status Refusal Reason influenza virus vaccine, inactivated 03/20/16 Given influenza virus vaccine, inactivated 02/06/14 Recorded zoster vaccine live 04/27/14 Given Procedures Procedure Date Related Diagnosis Body Site Basal cell carcinoma of face1 05/24/16 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 Margins involved, Dr. Zhou chooses to watch this for now. Return if any lesions recur. 2Left jaw, completely excised 3BASEL CELL OF LEFT HAND EXCISED 05/28 Social History Social History Type Response Smoking Status Never smoker Assessment and Plan Extracted from: Title: Office Visit Note Author: Beverly Yu CITRUS PICKER Date: 06/06/16 Assessment/Plan 1.Visit for suture removal Pathology did return as having margins involved in both areas. Abelardo has reviewed the pathology report and recommends careful observation/watching of this area for now. If any sign of recurrence develops we will proceed with excision at that time. Ordered: Postoperative Est [id number] Extracted from: Title: Ambulatory Patient Education Author: Beverly Yu CITRUS PICKER Date : 06/06/16 Procedures Suture Removal, Care After Refer to this sheet in the next few weeks. These instructions provide you with information on caring for yourself after your procedure. Your health care provider may also give you more specific instructions. Your treatment has been planned according to current medical practices, but problems sometimes occur. Call your health care provider if you have any problems or questions after your procedure. WHAT TO EXPECT AFTER THE PROCEDURE After your stitches (sutures) are removed, it is typical to have the following: Some discomfort and swelling in the wound area. Slight redness in the area. HOME CARE INSTRUCTIONS If you have skin adhesive strips over the wound area, do not take the strips off. They will fall off on their own in a few days. If the strips remain in place after 14 days, you may remove them. Change any bandages (dressings) at least once a day or as directed by your health care provider. If the bandage sticks, soak it off with warm, soapy water. Apply cream or ointment only as directed by your health care provider. If using cream or ointment, wash the area with soap and water 2 times a day to remove all the cream or ointment. Rinse off the soap and pat the area dry with a clean towel. Keep the wound area dry and clean. If the bandage becomes wet or dirty, or if it develops a bad smell, change it as soon as possible. Continue to protect the wound from injury. Use sunscreen when out in the sun. New scars become sunburned easily. SEEK MEDICAL CARE IF: You have increasing redness, swelling, or pain in the wound. You see pus coming from the wound. You have a fever. You notice a bad smell coming from the wound or dressing. Your wound breaks open (edges not staying together). This information is not intended to replace advice given to you by your health care provider. Make sure you discuss any questions you have with your health care provider. Document Released: 01/23/2002 Document Revised: 02/18/2014 Document Reviewed: [employer] Interactive Patient Education 2016 [employer] No follow up information was provided.
--- OUTSIDE RECORDS SUMMARY | 2016-07-20 02:26 | XMS REPORT ---
Author Author [facility], [facility] - Organization Unknown Address Unknown Phone Unavailable Allergies, Adverse Reactions, Alerts * No Latex Allergy. * No IV Contrast Allergy. * No Known Drug Allergies. * No Known Food Allergies. * No Known Allergies. Problems * Pain* Status:Active. Procedures No relevant procedures performed. Medication Medication reconciliation has not been performed. Results LAB--BEDSIDE TESTING from 02/11/2013 10:34 AMGlucose NPT 183 mg/dL H (70-100 mg/ dL) LAB--BEDSIDE TESTING from 02/11/2013 4:03 PMGlucose NPT 148 mg/dL H (70-100 mg/ dL) LAB--COAG STUDIES from 02/11/2013 10:41 AMINR 1.0 (0.9-1.2 )
--- OUTSIDE RECORDS SUMMARY | 2016-07-20 02:26 | XMS REPORT | Referral Summary ---
Author Author [facility] Organization [facility] Address Unknown Phone Unavailable Care Team Providers Care Spring Assembler Name Role Phone Cj Hilliard Primary Care Physician [phone] Encounter VC Date(s): 05/27/15 - 05/27/15 [facility], [address] [place] [address] Discharge Disposition: 01-Home or Self Care Attending Physician: Markie Hilliard MD Admitting Physician: Markie Hilliard MD Vital Signs Most recent to 1 oldest [Reference Range]: Blood Pressure 130/90 mmHg [90-140/60-90 mmHg] (05/27/15 4:06 PM) Problem List Condition Effective Dates Status [...] Daily, # 90 tabs, 0 Refill(s), Pharmacy: [facility], 1 tabs Oral Daily Start Date: 03/22/15 Status: Ordered metFORMIN 1000 mg oral tablet 1,000 mg 1 tabs, Oral, BID, # 180 tabs, 3 Refill(s), Pharmacy: [facility]28, 1 tabs Oral BID Start Date: 09/28/14 Status: Ordered predniSONE 20 mg oral tablet 20 mg 1 tabs, Oral, Daily, X 5 days, # 5 tabs, 0 Refill(s), Pharmacy: [facility], 1 tabs Oral Daily,x5 days Start Date: 05/27/15 Stop Date: 06/01/15 Status: Ordered True track test strips True track test strips, See Instructions, check blood sugar once a day. DX: 250.00, # 100 Each, 2 Refill(s), Pharmacy: [facility] [id number], check blood sugar once a day. DX: 250.00 Start Date: 11/30/14 Status: Ordered Ultram 50 mg oral tablet 50 mg 1 tabs, Oral, q12hr, as needed for pain, [facility], # 60 tabs, 0 Refill(s) Start Date: 05/27/15 Status: Ordered warfarin 2 mg oral tablet See Instructions, 3 tabs mg Oral 4 days per week or as directed, # 90 tabs, 6 Refill(s), Pharmacy: [facility], 3 tabs mg Oral 4 days per week or as directed Start Date: 09/29/14 Status: Ordered warfarin 5 mg oral tablet 5 mg 1 tabs, Oral, 3x/Wk, Take 1 tab 3 times a week or as directed, # 90 tabs, 3 Refill(s), Pharmacy: [facility], 1 tabs Oral 3x/Wk,Instr:Take 1 tab 3 times a week or as directed Start Date: 09/29/14 Status: Ordered Results Hematology Most recent to 1 oldest [Reference Range]: WBC [4.8-10.8 7.1 10*3/uL 10*3/uL] (05/27/15 4:43 PM) RBC [4.60-6.20] 5.12 (05/27/15 4:43 PM) Hgb [14.0-18.0 15.5 gm/dL gm/dL] (05/27/15 4:43 PM) Hct [42.0-52.0 %] 44.1 % (05/27/15 4:43 PM) MCV [82.0-99.0 fL] 86.1 fL (05/27/15 4:43 PM) MCH [27.0-32.0 pg] 30.3 pg (05/27/15 4:43 PM) MCHC [32.0-36.0 35.1 gm/dL gm/dL] (05/27/15 4:43 PM) RDW [11.5-14.5 %] 12.5 % (05/27/15 4:43 PM) Platelet [150-400 184 10*3/uL 10*3/uL] (05/27/15 4:43 PM) MPV [8.8-14.8 fL] 11.1 fL (05/27/15 4:43 PM) Sed Rate [0-15] 5 (05/27/15 4:43 PM) Coagulation Most recent to 1 oldest [Reference Range]: INR [0.9-1.2] 1.2 (05/27/15 4:43 PM) Chemistry Most recent to 1 oldest [Reference Range]: Sodium Lvl [135-144 140 mEq/L mEq/L] (05/27/15 4:43 PM) Potassium Lvl 4.8 mEq/L [3.5-5.2 mEq/L] (05/27/15 4:43 PM) Chloride [99-111 104 mEq/L mEq/L] (05/27/15 4:43 PM) CO2 [23-31 mEq/L] 27 mEq/L (05/27/15 4:43 PM) AGAP [3-20] 9 (05/27/15 4:43 PM) BUN [8-26 mg/dL] 13 mg/dL (05/27/15 4:43 PM) Glucose Lvl [70-99 152 mg/dL mg/dL] *HI* (1/14/16 4:43 PM) Creatinine Lvl 0.81 mg/dL [0.72-1.25 mg/dL] (05/27/15 4:43 PM) eGFR [>60 mL/min] >60 mL/min 1 (05/27/15 4:43 PM) Calcium Lvl 9.2 mg/dL [8.9-10.5 mg/dL] (05/27/15 4:43 PM) Albumin Lvl [3.4-4.8 4.1 gm/dL gm/dL] (05/27/15 4:43 PM) Total Protein 6.8 gm/dL [6.2-8.1 gm/dL] (05/27/15 4:43 PM) Globulin [1.8-4.0 2.7 gm/dL gm/dL] (05/27/15 4:43 PM) ALT [0-55 U/L] 25 U/L (05/27/15 4:43 PM) AST [5-34 U/L] 20 U/L (05/27/15 4:43 PM) Alk Phos [40-150 83 U/L U/L] (05/27/15 4:43 PM) Bili Total [0.2-1.2 1.1 mg/dL mg/dL] (05/27/15 4:43 PM) TSH with Reflex Free 3.10 T4 [0.35-4.94] (05/27/15 4:43 PM) Hgb A1c [4.1-5.6 %] 7.0 % *HI* (05/27/15 4:43 PM) eAvg Glucose 154.2 mg/dL (05/27/15 4:43 PM) 1Result Comment: Multiply eGFR results by 1.21 for race. Immunizations Vaccine Date Refusal Reason influenza virus vaccine, inactivated 02/06/14 zoster vaccine live 04/27/14 Procedures Procedure Date Related Diagnosis Body Site Excision of lesion of fascia of hand1 1BASEL CELL OF LEFT HAND EXCISED 05/28 Social History Social History Type Response Smoking Status Never smoker Assessment and Plan Extracted from: Title: Ambulatory Patient Education Author: Markie Hililard MD Date: Family Medicine Back Exercises Back exercises help [...] with developing a proper back exercise program. Document Released: 06/07/2005 Document Revised: 07/22/2012 Document Reviewed: [facility] Patient Information 2015 [employer] [facility]. This information is not intended to replace advice given to you by your health care provider. Make sure you discuss any questions you have with your health care provider. No follow up information was provided. Extracted from: Title: Office Visit Note Author: Markie Hilliard MD Date: 05/27/15 Assessment/Plan Acute low back pain Xray and lab pending. Ultram 50mg po bid prn, may cause sedation.Stop otc nsaids with his coumadin for now. Has left over celebrex at home and may want to retry it. Acute URI Zpack and prednisone 20mg po daily for five days was given. Will need appts for any further refills. Anticoagulant long-term use This issue was reviewed, appears stable, and current therapy continued except as mentioned. Appropriate lab was reviewed from the most recent appropriate entry and lab was ordered if needed in the cpoe /nursing orders, and follow up recommended generally in 90 days and no later then six months. Lab has been good. Pending. Leg pain, right Xray and lab pending. Ultram for pain. Appears more as OA/ Sciatica today then the other options. Close f/u if not improving. Limp See above. Right leg DVT The patient's issue is nearly or completely [...]
--- OUTSIDE RECORDS SUMMARY | 2016-07-20 02:26 | XMS REPORT | Referral Summary ---
Author Author [facility] Organization [facility] Address Unknown Phone Unavailable Care Team Providers Care Home School Teacher Name Role Phone Cj Hilliard Primary Care Physician [phone] Encounter VC Date(s): 01/04/16 - 01/04/16 [facility] [address] [place] [address] [place] [address]- Discharge Diagnosis: Visit for suture removal Discharge Disposition: 01-Home or Self Care Attending Physician: Beverly Yu APRN Admitting Physician: Beverly Yu APRN Referring Physician: Markie Hilliard MD Vital Signs Most recent to 1 oldest [Reference Range]: Temperature Tympanic 36.8 degC [36.6-38.1 degC] (01/04/16 9:49 AM) Problem List Condition Effective Dates Status [...] CHANGE, # 180 tabs, 0 Refill(s), Pharmacy: [facility], 1 tabs Oral BID,x90 days,Instr:NOTE DOSE CHANGE Start Date: 09/08/15 Stop Date: 12/07/15 Status: Ordered metFORMIN 1000 mg oral tablet 1,000 mg 1 tabs, Oral, BID, DX: E11.9, # 180 tabs, 0 Refill(s), Pharmacy: [facility], 1 tabs Oral BID,Instr:DX: E11.9 Start Date: 11/09/15 Status: Ordered Test Strips Test Strips, See Instructions, Uses [employer]estyle [employer] Lite to check blood glucose daily for ICD 10-E11.9. Do not fill until patient requests. thanks, # 100 Each, 4 Refill(s), Pharmacy: [facility] [id number], Uses [employer] Lite to check... Start Date: 12/15/15 Status: Ordered True track test strips True track test strips, See Instructions, check blood sugar once a day. DX: 250.00, # 100 Each, 2 Refill(s), Pharmacy: [facility] [address], check blood sugar once a day. DX: 250.00 Start Date: 11/30/14 Status: Ordered warfarin 2 mg oral tablet See Instructions, TAKE THREE TABLETS BY MOUTH ONCE DAILY FOR 4 DAYS PER WEEK OR DIRECTED, # 90 tabs, eRx: [facility], TAKE THREE TABLETS BY MOUTH [...] Title: Ambulatory Patient Education Author: Beverly Yu DAY HABILITATION SUPERVISOR Date : 01/04/16 Family Medicine Suture Removal, Care After Refer to this [...] Released: 01/23/2002 Document Revised: 02/18/2014 Document Reviewed: [facility] Patient Information 2016 [employer] [facility]. No follow up information was provided. Extracted from: Title: Office Visit Note Author: Beverly Yu L DAY HABILITATION SUPERVISOR Date: 01/04/16 Assessment/Plan 1.Visit for suture removal Pathology from thescapular region indicates basal cell carcinoma, free of margins. Regarding theshe can use horn on the left jaw. I would recommend you to have an appointmentwith Dr. Zhou for formal excisionof this suspicious lesion. Ordered: Postoperative Est [id number]
--- OUTSIDE RECORDS SUMMARY | 2016-07-20 02:26 | XMS REPORT | Referral Summary ---
Author Organization Unknown Address Unknown Phone Unavailable Care Team Providers Care Medication Aid Name Role Phone Kira Lopez JR Primary Care Physician [phone] Encounter VC Date(s): 05/29/14 - 05/29/14 [facility] [address] [place] [address] [place] [address]- Discharge Diagnosis: CA skin, basal cell Discharge Disposition: Home or Self Care Attending Physician: Jessica López APRN Admitting Physician: Jessica López APRN Vital Signs Most recent to 1 oldest [Reference Range]: Temperature Tympanic 36.7 degC [36.6-38.1 degC] (05/29/14 8:59 AM) Peripheral Pulse 76 bpm Rate [60-100 bpm] (05/29/14 8:59 AM) Respiratory Rate 14 br/min [14-20 br/min] (05/29/14 8:59 AM) Blood Pressure 102/60 mmHg [90-140/60-90 mmHg] (05/29/14 8:59 AM) Problem List Condition Effective Dates Status Health Status Informant Hypotestosteronism(C Active onfirmed)1 Right leg Active DVT(Confirmed) Fatigue(Confirmed) Active Anticoagulant Active long-term use(Confirmed) Hyperlipemia(Confirm Active ed) CA skin, basal < 05/29/14 Resolved cell(Confirmed) Myofascitis(Confirme < 05/19/14 Resolved d)2 Osteoarthritis(Confi Active rmed) Pulmonary Active embolus(Confirmed) Spinal 01/19/14 - 05/19/14 [...] Status: Ordered metFORMIN 1000 mg oral tablet tabs, Oral, BID, 0 Refill(s) Start Date: 04/27/14 Status: Ordered warfarin Daily, 0 Refill(s) Start Date: 04/27/14 Status: Ordered warfarin 2 mg oral tablet See Instructions, 3 tabs mg Oral Daily or as directed, # 90 tabs, 6 Refill(s), Pharmacy: [facility], 3 tabs mg Oral Daily or as directed Special Instructions: 3 tabs mg Oral Daily or as directed Start Date: 04/28/14 Status: Ordered Zithromax Z-Alek 250 mg oral tablet 1 packets, Oral, Daily, as directed on package labeling, X 5 days, # 6 tabs, 0 Refill(s), Pharmacy: [facility], 1 packets Oral Daily,x5 days,Instr: as directed on package labeling Special Instructions: as directed on package labeling Start Date: 05/25/14 Stop Date: 05/30/14 Status: Ordered Results No data available for [...] Extracted from: Title: Office Visit Note Author: Jessica López FINANCIAL SERVICES INTERNSHIP Date: 05/29/14 Assessment/Plan CA skin, basal cell Sutures were removed without difficulty. Recommend patient utilized a triple antibiotic ointment or Vaseline to keep area moist until it is completely healed. If he develops any problems or recurrence he is to let us know.
--- OUTSIDE RECORDS SUMMARY | 2016-07-20 02:26 | XMS REPORT | Continuity of Care Document ---
Author Author [facility] Organization [facility] Address Unknown Phone Unavailable Allergies Active Description Code Type Severity Reaction Onset Reported/Identified Relationship to Patient Clinical Status Yes No Known Allergies Drug Allergy N/A N/A 02/10/2013 Yes No Known Drug Allergies Drug Allergy N/A N/A 02/10/2013 Yes No Known Food Allergies Food Allergy N/A N/A 02/10/2013 Yes No Known Medication Allergies NKMA N/A N/A 04/27/2014 Medications Problems Date Dx Coded Attending Type Code Diagnosis Diagnosed By 02/11/2013 Jennifer Pal MD Final 173.42 SCALP NECK SKIN SCCA 02/11/2013 Jennifer Pal MD Final 250.00 DM2/NOS UNCOMP NSU Procedures Code [place] [address] REMOVAL OF SKIN LESION Jennifer Pal MD 02/11/2013 Results Test Result Range Protime (INR) - 12/15/15 10:20 INR 2.4 NA 0.8-1.2 Prothrombin Time Venous seconds Comprehensive Metabolic Panel (CMP) - 12/15/15 10:20 Albumin 4.1 g/dL 3.4-4.8 Alkaline Phosphatase 82 U/L 40-150 ALT (SGPT) 29 U/L 0-55 Anion Gap 8 NA 3-20 AST (SGOT) 26 U/L 5-34 Bilirubin Total 1.6 mg/dL 0.2-1.2 BUN 14 mg/dL 8-26 Calcium 9.1 mg/dL 8.9-10.5 Chloride 105 mEq/L 99-111 CO2 27 mEq/L 23-31 Creatinine 0.93 mg/dL 0.72-1.25 Globulin 2.3 g/dL 1.8-4.0 Glucose 147 mg/dL 70-99 Potassium 4.4 mEq/L 3.5-5.2 Protein 6.4 g/dL 6.0-7.6 Sodium 140 mEq/L 135-144 eGFR - 12/15/15 10:20 eGFR >60 mL/min >60 TSH with Reflex Free T4 - 12/15/15 10:20 TSH with Reflex Free T4 2.57 uIU/mL 0.35- 4.94 Hemoglobin A1C - 12/15/15 10:20 Hemoglobin A1C 7.2 % 4.1-5.6 Estimated Average Glucose - 12/15/15 10:20 Estimated Average Glucose 159.9 mg/dL Protime (INR) - 07/17/16 12:05 INR 3.5 NA 0.8-1.2 Prothrombin Time Venous seconds CBC With Platelet and Differential - 07/17/16 12:05 Absolute Basophils 0.02 10*3/uL 0.00- 0.20 Absolute Eosinophils 0.14 10*3/uL 0.00- 0.50 Absolute Lymphocytes 1.32 10*3/uL 0.80- 3.30 Absolute Monocytes 0.82 10*3/uL 0.30- 1.00 Absolute Neutrophils 5.24 10*3/uL 1.90- 7.00 Basophils 0 % 0-2 Eosinophils 2 % 0-4 HCT 40.6 % 42.0-52.0 HGB 13.4 g/dL 14.0-18.0 Immature Granulocytes 0.4 % 0.0-1.0 Lymphocytes 17 % 20-46 MCH 29.1 pg 27.0-32.0 MCHC 33.0 g/dL 32.0-36.0 MCV 88.1 fL 82.0-99.0 Monocytes 11 % 4-11 MPV 9.9 fL 8.8-14.8 Neutrophils 69 % 51-75 Platelet Count 255 K/uL 150-400 RBC 4.61 10*6/uL 4.60-6.20 RDW 12.2 % 11.5-14.5 WBC 7.6 K/uL 4.8-10.8 Comprehensive Metabolic Panel (CMP) - 07/17/16 12:05 Albumin 3.6 g/dL 3.4-4.8 Alkaline Phosphatase 93 U/L 40-150 ALT (SGPT) 22 U/L 0-55 Anion Gap 6 NA 3-20 AST (SGOT) 21 U/L 5-34 Bilirubin Total 1.6 mg/dL 0.2-1.2 BUN 13 mg/dL 8-26 Calcium 8.7 mg/dL 8.4-10.2 Chloride 105 mEq/L 99-111 CO2 27 mEq/L 23-31 Creatinine 0.77 mg/dL 0.72-1.25 Globulin 2.6 g/dL 1.8-4.0 Glucose 141 mg/dL 70-99 Potassium 4.0 mEq/L 3.5-5.2 Protein 6.2 g/dL 6.0-7.6 Sodium 138 mEq/L 135-144 eGFR - 07/17/16 12:05 eGFR >60 mL/min >60 Hemoglobin A1C - 07/17/16 12:05 Hemoglobin A1C 6.5 % 4.1-5.6 Estimated Average Glucose - 07/17/16 12:05 Estimated Average Glucose 139.9 mg/dL Urinalysis with reflex microscopic - 07/17/16 12:20 Appearance Turbid NA Blood Negative NA Negative Color [place] NA Glucose, Urine Trace Negative Ketones Trace Negative Leukocyte Esterase Pos 1+ NA Negative Nitrites Negative NA Negative pH 6.0 NA 5.0-8.0 Protein Pos 1+ Negative Specific [place] 1.035 NA 1.003-1.030 UA Collection type Voided NA Urobilinogen 1.0 mg/dL <1.0 Urine Microscopic - 07/17/16 12:20 Bacteria None Seen NA Crystals Ca Ox NA Epithelial Cells 5 /HPF Microscop. Exam Perf. performed NA Urine Mucus Present NA WBC, Urine 10 /HPF 0-4 Encounters ACCT No. Visit Date/Time Discharge Status Pt. Type Provider Facility Loc./Unit Complaint [id number] 02/11/2013 10:08:00 2012 18:00:00 DIS Outpatient Kae CRESPO, Jennifer Malone [facility] on [address]
--- OUTSIDE RECORDS SUMMARY | 2016-07-20 02:26 | XMS REPORT | Referral Summary ---
Author Author [facility] Organization [facility] Address Unknown Phone Unavailable Care Team Providers Care Hotel Supplies Salesperson Name Role Phone Cj Hilliard Primary Care Physician [phone] Encounter VC Date(s): 05/24/16 - 05/24/16 [facility] [address] [place] [address] [place] [address]- Discharge Diagnosis: Changing skin lesion Discharge Disposition: 01-Home or Self Care Attending Physician: Frederick Zhou MD Admitting Physician: Frederick Zhou MD Referring Physician: Markie Hilliard MD Vital Signs Most recent to 1 oldest [Reference Range]: Peripheral Pulse 80 bpm Rate [60-100 bpm] (05/24/16 1:05 PM) Respiratory Rate 18 br/min [14-20 br/min] (05/24/16 1:05 PM) Blood Pressure 128/76 mmHg [90-140/60-90 mmHg] (05/24/16 1:05 PM) SpO2 96 % (05/24/16 1:05 PM) Problem List Condition Effective Dates Status [...] MOUTH TWICE DAILY, # 180 tabs, eRx: [id number] Start Date: 05/05/16 Status: Ordered metFORMIN 1000 mg oral tablet 1,000 mg 1 tabs, Oral, BID, DX: E11.9, # 180 tabs, 0 Refill(s), Pharmacy: [facility], 1 tabs Oral BID,Instr:DX: E11.9 Start Date: 11/09/15 Status: Ordered metFORMIN 1000 mg oral tablet See Instructions, TAKE ONE TABLET BY MOUTH TWICE DAILY, # 180 tabs, eRx: [facility], TAKE ONE TABLET BY MOUTH TWICE DAILY Start Date: 03/16/16 Status: Ordered Test Strips Test Strips, See Instructions, Uses [facility] to check blood glucose daily for ICD 10-E11.9. Do not fill until patient requests. thanks, # 100 Each, 4 Refill(s), Pharmacy: [id number], Uses [facility] to check... Start Date: 12/15/15 Status: Ordered True track test strips True track test strips, See Instructions, check blood sugar once a day. DX: 250.00, # 100 Each, 2 Refill(s), Pharmacy: [id number], check blood sugar once a day. DX: 250.00 Start Date: 11/30/14 Status: Ordered warfarin 2 mg oral tablet See Instructions, TAKE THREE TABLETS BY MOUTH ONCE DAILY FOR 4 DAYS PER WEEK OR DIRECTED, # 90 tabs, eRx: [facility], TAKE THREE TABLETS BY MOUTH ONCE DAILY FOR 4 DAYS PER WEEK OR DIRECTED Start Date: 02/18/16 Status: Ordered warfarin 5 mg oral tablet See Instructions, TAKE ONE TABLET BY MOUTH THREE TIMES A WEEK OR DIRECTED, # 90 tabs, eRx: [id number], TAKE ONE TABLET BY MOUTH THREE TIMES [...] Patient Education Author: Frederick Zhou MD Date: 03/30 [facility] Basal Cell Carcinoma Basal cell carcinoma is [...] a procedure done by a skin doctor (truss designer or Mohs surgeon) in his or her [...] Released: 11/04/2003 Document Revised: 10/29/2012 Document Reviewed: [employer] Patient Education 2016 [employer] No follow up information was provided. Extracted from: Title: Office Visit Note Author: Frederick Zhou MD Date: 05/24/16 Assessment/Plan 1.Changing skin lesion Ordered: Office Visit Level 3 Est 77751 Plan: Excisional biopsy of suspicious skin lesions involvingleft cheek and left forehead region. I informed the patient that as my clinical intuition that the ulcerated lesionsinvolving left forehead regionand left cheek region were likely that of aunderlyingskin malignancy such as a squamous cell carcinoma.Was therefore my recommendation that we should proceed with an excisional biopsy of these areas of concern.Patient understood and wished to proceed.Both areas of concern were prepped and draped in sterile fashion. One percent lidocaine with epinephrine was injected circumferentially around the skin lesions. The lesions were bothexcised in a standard elliptical fashion. The elliptical incision were1.2 cm in width and2cm in length on the left cheek and 1.5 cm in width and 2 cm in length on the left forehead. Hemostasis obtained within both surgicalwoundswith electrocautery. Both incisionswere closed in layers with 4-0 Vicryl subcuticular stitches and 4- 0 Prolene for skin edges. The patient was given post excision instruction and told to return to the clinic in 10-14 days, or sooner if any concerns arise.
--- OUTSIDE RECORDS SUMMARY | 2016-07-20 02:26 | XMS REPORT | Referral Summary ---
Author Author [facility] Organization [facility] Address Unknown Phone Unavailable Care Team Providers Care Integration Specialist Name Role Phone Cj Hilliard Primary Care Physician [phone] Encounter Date(s): 06/30/15 - 06/30/15 [facility] [address] [place] [address] [place] [address]- Discharge Diagnosis: Changing skin lesion Discharge Diagnosis: Actinic keratoses Discharge Disposition: 01-Home or Self Care Attending Physician: Frederick Couch MD Admitting Physician: Frederick Couch MD Referring Physician: Markie Hilliard MD Vital Signs Most recent to 1 oldest [Reference Range]: Temperature Tympanic 36.2 degC [36.6-38.1 degC] *LOW* (06/30/15 9:29 AM) Blood Pressure 142/86 mmHg [90-140/60-90 mmHg] *HI* (06/30/15 9:29 AM) Problem List Condition Effective Dates Status [...] Daily, # 90 tabs, 0 Refill(s), Pharmacy: [facility], 1 tabs Oral Daily Start Date: 06/28/15 Status: Ordered metFORMIN 1000 mg oral tablet 1,000 mg 1 tabs, Oral, BID, # 180 tabs, 3 Refill(s), Pharmacy: [facility], 1 tabs Oral BID Start Date: 06/28/15 Status: Ordered True track test strips True track test strips, See Instructions, check blood sugar once a day. DX: 250.00, # 100 Each, 2 Refill(s), Pharmacy: [id number], check blood sugar once a day. DX: [...] directed, # 90 tabs, 3 Refill(s), Pharmacy: [facility], 1 tabs Oral 3x/Wk,Instr:Take 1 tab 3 times a week or as directed Start Date: 09/29/14 Status: Ordered Results No data available for this section Immunizations Vaccine Date Refusal Reason influenza virus vaccine, inactivated 02/06/14 zoster vaccine live 04/27/14 Procedures Procedure Date Related Diagnosis Body Site Destruction (eg, laser surgery, 06/30/15 electrosurgery, cryosurgery, chemosurgery, surgical curettement), premalignant lesions (eg, actinic keratoses); first lesion Destruction (eg, laser surgery, 06/30/15 electrosurgery, cryosurgery, chemosurgery, surgical curettement), premalignant lesions (eg, actinic keratoses); second through 14 lesions, each (List separately in addition to code for first lesion) Excision of lesion of fascia of hand1 1BASEL CELL OF LEFT HAND EXCISED 05/28 Social History Social History Type Response Smoking Status Never smoker Assessment and Plan No data available for this section
--- OUTSIDE RECORDS SUMMARY | 2016-07-20 02:27 | XMS REPORT | Referral Summary ---
Author Author [facility] Organization [facility] Address Unknown Phone Unavailable Care Team Providers Care Felt Hat Pouncing Operator Hand Name Role Phone Cj Hilliard Primary Care Physician [phone] Encounter VC Date(s): 08/17/15 - 08/17/15 [facility] [address] [place] [address] [place] [address]- Discharge Diagnosis: Visit for suture removal Discharge Disposition: 01-Home or Self Care Attending Physician: Beverly Yu APRN Admitting Physician: Beverly Yu APRN Referring Physician: Markie Hilliard MD Vital Signs Most recent to 1 oldest [Reference Range]: Temperature Tympanic 36.3 degC [36.6-38.1 degC] *LOW* (08/17/15 10:38 AM) Problem List Condition Effective Dates [...] tablet 1 mg 1 tabs, Oral, BID, # 180 tabs, 0 Refill(s), Pharmacy: [facility], 1 tabs Oral BID,x90 days Start Date: 08/16/15 Stop Date: 11/14/15 Status: Ordered CeleBREX Oral, Gets from [facility], 0 Refill(s) Start Date: 08/16/15 Status: Ordered metFORMIN 1000 mg oral tablet 1,000 mg 1 tabs, Oral, BID, # 180 tabs, 3 Refill(s), Pharmacy: [facility], 1 tabs Oral BID Start Date: 06/28/15 Status: Ordered True track test strips True track test strips, See Instructions, check blood sugar once a day. DX: 250.00, # 100 Each, 2 Refill(s), Pharmacy: [facility], check blood sugar once a day. DX: 250.00 Start Date: 11/30/14 Status: Ordered warfarin 2 mg oral tablet See Instructions, 3 tabs mg Oral 4 days per week or as directed, # 90 tabs, 6 Refill(s), Pharmacy: [facility], 3 tabs mg Oral 4 days per week or as directed Start Date: 09/29/14 Status: Ordered warfarin 5 mg oral tablet 5 mg 1 tabs, Oral, 3x/Wk, Take 1 tab 3 times a week or as directed, # 90 tabs, 3 Refill(s), Pharmacy: [facility], 1 tabs Oral 3x/Wk,Instr:Take 1 [...] Title: Ambulatory Patient Education Author: Beverly Yu AIR FILLER Date : 08/17/15 Family Medicine Suture Removal, Care After Refer [...] Released: 01/23/2002 Document Revised: 02/18/2014 Document Reviewed: [employer]Care Patient Information 2014 [employer] [facility]. No follow up information was provided. Extracted from: Title: Office Visit Note Author: Beverly Yu AIR FILLER Date: 08/17/15 Assessment/Plan 1.Visit for suture removal Pathology indicates there was actually no residual basal cell carcinomaidentified. Sutures removed without difficulty and antibiotic ointment applied. Since transportationis an issueand you have an appointment with Dr. Dejesus the next couple of months, I would encourage you to have an appointment withDr. Zhou the same dayfor evaluation of these lesions on your back. He can evaluate thisand decide whether they need to be removedor treated with liquid nitrogen. Ordered: Postoperative Est [id number]
--- OUTSIDE RECORDS SUMMARY | 2016-07-20 02:27 | XMS REPORT | Referral Summary ---
Author Organization Unknown Address Unknown Phone Unavailable Care Team Providers Care Teacher Of The Deaf/Hard Of Hearing Name Role Phone Kwaku Garcia Primary Care Physician [phone] Encounter VC Date(s): 09/07/14 - 09/07/14 [facility], Family [address] [place] [address] Discharge Diagnosis: Muscle weakness of lower extremity Discharge Diagnosis: Type 2 diabetes, controlled, with peripheral neuropathy Discharge Diagnosis: Right leg DVT Discharge Diagnosis: Hyperlipemia Discharge Disposition: Home or Self Care Attending Physician: Vini Garcia MD Admitting Physician: Vini Garcia MD Referring Physician: Johnnie Lopez JR, MD, FAAFP Vital Signs Most recent to 1 oldest [Reference Range]: Temperature Tympanic 36.5 degC [36.6-38.1 degC] *LOW* (09/07/14 10:55 AM) Peripheral Pulse 91 bpm Rate [60-100 bpm] (09/07/14 10:55 AM) Respiratory Rate 16 br/min [14-20 br/min] (09/07/14 10:55 AM) Blood Pressure 116/82 mmHg [90-140/60-90 mmHg] (09/07/14 10:55 AM) Most recent to 1 oldest [Reference Range]: SpO2 96 % (09/07/14 10:55 AM) Problem List Condition Effective Dates Status Health Status Informant Hypotestosteronism(C Active onfirmed)1 Right leg Active DVT(Confirmed) Fatigue(Confirmed) Active Anticoagulant Active long-term use(Confirmed) Hyperlipemia(Confirm Active ed) CA skin, basal < 05/29/14 Resolved cell(Confirmed) Myofascitis(Confirme < 05/19/14 Resolved d)2 Osteoarthritis(Confi Active rmed) Muscle weakness of Active lower extremity(Confirmed) Pulmonary Active embolus(Confirmed) Spinal 01/19/14 - 1/6/15 Resolved enthesopathy(Confirm ed)3 Squamous cell 07/31/12 - [...] directed, # 90 tabs, 6 Refill(s), Pharmacy: [facility], 3 tabs mg Oral Daily or as directed Special Instructions: 3 tabs mg Oral Daily or as directed Start Date: 04/28/14 Status: Ordered Results Hematology Most recent to 1 oldest [Reference Range]: WBC [4.8-10.8 K/uL] 8.1 K/uL (09/07/14 12:48 PM) RBC [4.60-6.20 M/uL] 4.99 M/uL (09/07/14 12:48 PM) Hgb [14.0-18.0 15.3 gm/dL gm/dL] (09/07/14 12:48 PM) Hct [42.0-52.0 %] 44.0 % (09/07/14 12:48 PM) MCV [82.0-99.0 fL] 88.2 fL (09/07/14 12:48 PM) MCH [27.0-32.0 pg] 30.7 pg (09/07/14 12:48 PM) MCHC [32.0-36.0 34.8 gm/dL gm/dL] (09/07/1448 PM) RDW [11.5-14.5 %] 12.8 % (09/07/1448 PM) Platelet [150-400 166 K/uL K/uL] (09/07/14 12:48 PM) MPV [8.8-14.8 fL] 10.6 fL (09/07/1448 PM) Immature 0.1 % Granulocytes (09/07/1448 PM) [0.0-1.0 %] Neutrophils [51-75 66 % %] (09/07/1448 PM) Lymphocytes [20-46 24 % %] (09/07/1448 PM) Monocytes [4-11 %] 8 % (09/07/1448 PM) Eosinophils [0-4 %] 2 % (09/07/1448 PM) Basophils [0-2 %] 0 % (09/07/1448 PM) Neutro Absolute 5.34 THOUS [1.90-7.00 THOUS] (09/07/14:48 PM) Lymph Absolute 1.94 THOUS [0.80-3.30 THOUS] (09/07/14:48 PM) [place] Absolute 0.67 THOUS [0.30-1.00 THOUS] (09/07/14:48 PM) Eos Absolute 0.12 THOUS [0.00-0.50 THOUS] (09/07/14:48 PM) Baso Absolute 0.02 THOUS [0.00-0.20 THOUS] (09/07/14:48 PM) Coagulation Most recent to 1 oldest [Reference Range]: INR [0.8-1.2] 2.0 1 *HI* (09/07/14 12:48 PM) 1Result Comment: Normal (no anticoagulant): 0.8 - 1.2 Units Routine Therapeutic Range: 2.0 - 3.0 Units High Risk Therapeutic Range: 2.5 - 3.5 Units Chemistry Most recent to 1 oldest [Reference Range]: Sodium Lvl [135-144 142 mEq/L mEq/L] (09/07/14:48 PM) Potassium Lvl 4.0 mEq/L [3.5-5.2 mEq/L] (09/07/14 12:48 PM) Chloride [99-111 107 mEq/L mEq/L] (09/07/14 12:48 PM) CO2 [23-31 mEq/L] 25 mEq/L (09/07/14 12:48 PM) AGAP [3-20] 10 (09/07/14 12:48 PM) BUN [8-26 mg/dL] 16 mg/dL (09/07/14 12:48 PM) Glucose Lvl [70-99 121 mg/dL mg/dL] *HI* (09/07/14 12:48 PM) Creatinine Lvl 0.79 mg/dL [0.72-1.25 mg/dL] (09/07/14 12:48 PM) eGFR [>60 mL/min] >60 mL/min 2 (09/07/14 12:48 PM) Calcium Lvl 9.6 mg/dL [8.9-10.5 mg/dL] (09/07/14 12:48 PM) Albumin Lvl [3.4-4.8 4.3 gm/dL gm/dL] (09/07/14 12:48 PM) Total Protein 6.8 gm/dL [6.2-8.1 gm/dL] (09/07/14 12:48 PM) Globulin [1.8-4.0 2.5 gm/dL gm/dL] (09/07/14 12:48 PM) ALT [0-55 unit/L] 18 unit/L (09/07/14 12:48 PM) AST [5-34 unit/L] 20 unit/L (09/07/14 12:48 PM) Alk Phos [40-150 76 unit/L unit/L] (09/07/14 12:48 PM) Bili Total [0.2-1.2 2.1 mg/dL mg/dL] *HI* (09/07/14 12:48 PM) Total CK [30-200 143 unit/L unit/L] (09/07/14 12:48 PM) TSH with Reflex Free 2.70 T4 [0.35-4.94] (09/07/14 12:48 PM) 2Result Comment: Multiply eGFR results by 1.21 for [...] Visit Note Author: Vini Garcia MD Date: 09/07/14 Assessment/Plan Hyperlipemia Muscle weakness of lower extremity Ordered: CBC w/ Differential Creatine Kinase TSH with Reflex Free T4 Right leg DVT Type 2 diabetes, controlled, with peripheral neuropathy Plan: Continue all current medications. I'm checking a blood test. If your test reveals that you have any muscle problem and I will all and discuss that further. Otherwise I want to see back in 3 months. We discussed exercise and ways to increase her legs. He did healthy diet. Check your blood sugar fasting and 2 hours postprandial if possible 1-2 days a week. Ordered: Comprehensive Metabolic Panel Hemoglobin A1c
--- OUTSIDE RECORDS SUMMARY | 2016-07-20 02:27 | XMS REPORT | Referral Summary ---
Author Author [facility] Organization [facility] Address Unknown Phone Unavailable Care Team Providers Care Plywood Matcher Name Role Phone Cj Hilliard Primary Care Physician [phone] Encounter VC Date(s): 05/17/15 - 05/17/15 [facility], [address] [place] [address] Discharge Disposition: 01-Home or Self Care Attending Physician: Markie Hilliard MD Admitting Physician: Markie Hilliard MD Vital Signs Most recent to 1 oldest [Reference Range]: Blood Pressure 136/90 mmHg [90-140/60-90 mmHg] (05/17/15 2:27 PM) Problem List Condition Effective Dates Status [...] Daily, # 90 tabs, 0 Refill(s), Pharmacy: [facility], 1 tabs Oral Daily Start Date: 03/22/15 Status: Ordered metFORMIN 1000 mg oral tablet 1,000 mg 1 tabs, Oral, BID, # 180 tabs, 3 Refill(s), Pharmacy: [facility], 1 tabs Oral BID Start Date: 09/28/14 Status: Ordered True track test strips True track test strips, See Instructions, check blood sugar once a day. DX: 250.00, # 100 Each, 2 Refill(s), Pharmacy: [id number], check blood sugar once a day. DX: 250.00 Start Date: 11/30/14 Status: Ordered warfarin 2 mg oral tablet See Instructions, 3 tabs mg Oral 4 days per week or as directed, # 90 tabs, 6 Refill(s), Pharmacy: [facility], 3 tabs mg Oral 4 days per week or as directed Start Date: 09/29/14 Status: Ordered warfarin 5 mg oral tablet 5 mg 1 tabs, Oral, 3x/Wk, Take 1 tab 3 times a week or as directed, # 90 tabs, 3 Refill(s), Pharmacy: [facility], 1 tabs Oral 3x/Wk,Instr:Take 1 [...] Patient Education Author: Markie Hilliard MD Date: 05/17/15 Family Medicine Chronic Respiratory Failure Respiratory failure is when your lungs are not working well and your breathing ( respiratory) system fails. When respiratory failure occurs, it is difficult for your lungs to get enough oxygen or get rid of carbon dioxide or both. Respiratory failure can be life threatening. Respiratory failure can be acute or chronic. Acute respiratory failure is sudden , severe, and requires emergency medical treatment. Chronic respiratory failure is less severe, happens over time, and requires ongoing treatment. CAUSES Any problem affecting the heart or lungs can cause respiratory failure. Some of these causes may be: Chronic bronchitis and emphysema (COPD). Blood clot going to the lung (pulmonary embolism). Having water in the lungs caused by heart failure, lung injury, or infection (pulmonary edema). Collapsed lung (pneumothorax). Pneumonia. Pulmonary fibrosis. Obesity. Asthma. Heart failure. Any type of trauma to the chest that can make breathing difficult. Nerve or muscle diseases making chest movements difficult. SYMPTOMS Signs and symptoms of chronic respiratory failure include: Shortness of breath (dyspnea) with or without activity. Rapid, fast breathing (tachypnea). Wheezing. Fast heart rate. Bluish color to the fingernail or toenail beds. Confusion or drowsiness or both. DIAGNOSIS Initial diagnosis requires a thorough history and a physical exam by your health care provider. Additional tests may include: Chest X-ray. CT scan of your lungs. Ultrasound to check for blood clots. Blood tests, such as an arterial blood gas test (ABG). This is a blood test that looks at the oxygen and carbon dioxide levels in your arterial blood. Your vital signs will be taken. This includes your respiratory rate (how many times a minute you are breathing), oxygen saturation (this measures the oxygen level in your blood), heart rate, and blood pressure. These numbers help your health care provider determine the next steps. Electrocardiogram. TREATMENT Treatment of chronic respiratory failure depends on the cause of the respiratory failure. Treatment can include the following: Oxygen. Oxygen can be delivered through the following: Nasal cannula. This is small tubing that goes in your nose to give you oxygen. Face mask. A face mask covers your nose and mouth to give you oxygen. Medicine. Different medicines can be given to help with breathing. These can include: Nebulizers. Nebulizers deliver medicines to open the air passages ( bronchodilators). These medicines help to open or relax the airways in the lungs so you can breathe better. They can also help loosen mucus from your lungs. Diuretics. Diuretic medicines can help you breathe better by getting rid of extra fluid in your body. Steroids. Steroid medicines can help decrease inflammation in your lungs. Chest tube. If you have a collapsed lung (pneumothorax), a chest tube is placed to help reinflate the lung. Non-invasive positive pressure ventilation (NPPV). This is a tight-fitting mask that goes over your nose and mouth. The mask has tubing that is attached to a machine. The machine blows air into the tubing, which helps to keep the tiny air sacs (alveoli) in your lungs open. This machine allows you to breathe on your own. Ventilator. A ventilator is a breathing machine. When on a ventilator, a breathing tube is put into the lungs. A ventilator is used when you can no longer breathe well enough on your own. You may have low oxygen levels or high carbon dioxide (CO2) levels in your blood. When you are on a ventilator, sedation and pain medicines are given to make you sleep so your lungs can heal. HOME CARE INSTRUCTIONS Follow your health care provider's directions about medicines and respiratory therapy. Quit smoking if you smoke. SEEK MEDICAL CARE IF: You have increasing shortness of breath and are less functional than you have been. You have increased sputum, wheezing, coughing, or loss of energy. You are on oxygen and are requiring more. SEEK IMMEDIATE MEDICAL CARE IF: Your shortness of breath is significantly worse. You are unable to say more than a few words without having to catch your breath. You are much less functional. MAKE SURE YOU: Understand these instructions. Will watch your condition. Will get help right away if you are not doing well or get worse. Document Released: 04/30/2006 Document Revised: 09/14/2014 Document Reviewed: ExitCare Patient Information 2015 [facility]. This information is not intended to replace advice given to you by your health care provider. Make sure you discuss any questions you have with your health care provider. No follow up information was provided. Extracted from: Title: Office Visit Note Author: Markie Hilliard MD Date: 05/17/15 Assessment/Plan Anticoagulant long-term use This issue was reviewed, appears stable, and current therapy continued except as mentioned. Appropriate lab was reviewed from the most recent appropriate entry and lab was ordered if needed in the cpoe /nursing orders, and follow up recommended generally in 90 days and no later then six months. PT stable. Diabetic neuropathy, Type 2 diabetes, controlled, with peripheral neuropathy The patient was notified for the need for regular quarterly f/u of their diabetes. Further any pertinent medication, supplies, etc were refilled. Additionally, they are to have annual eye exams, foot exams, and regular care. Lab stable. Nocturia UA pending. Ordered: Urinalysis with Culture if Indicated Pulmonary embolus This issue was reviewed, appears stable, and current therapy continued except as mentioned. Appropriate lab was reviewed from the most recent appropriate entry and lab was ordered if needed in the cpoe/nursing orders, and follow up recommended generally in 90 days and no later then six months. Stable on coumadin. Right leg DVT This issue was reviewed, appears stable, and current therapy continued except as mentioned. Appropriate lab was reviewed from the most recent appropriate entry and lab was ordered if needed in the cpoe/nursing orders, and follow up recommended generally in 90 days and no later then six months. Stable on coumadin. Squamous cell carcinoma To Dr. HIDALGO for evaluation of the area on his right neck.
--- OUTSIDE RECORDS SUMMARY | 2016-07-20 02:27 | XMS REPORT | Referral Summary ---
Author Author [facility], Family Medicine Organization [facility] Address Unknown Phone Unavailable Care Team Providers Care Computer Numerical Control Operator Name Role Phone Cj Hilliard Primary Care Physician [phone] Encounter VC Date(s): 03/01/15 - 03/01/15 [facility] [address] [place] [id number] Discharge Diagnosis: Anticoagulant long-term use Discharge Diagnosis: [...] CHANGE, # 180 tabs, 0 Refill(s), Pharmacy: [id number], 1 tabs Oral BID,x90 days,Instr:NOTE DOSE CHANGE Start Date: 09/08/15 Stop Date: 12/07/15 Status: Ordered CeleBREX Oral, Gets from [facility], 0 Refill(s) Start Date: 08/16/15 Status: Ordered metFORMIN 1000 mg oral tablet 1,000 mg 1 tabs, Oral, BID, # 180 tabs, 3 Refill(s), Pharmacy: [id number], 1 tabs Oral BID Start Date: 06/28/15 Status: Ordered True track test strips True track test strips, See Instructions, check blood sugar once a day. DX: 250.00, # 100 Each, 2 Refill(s), Pharmacy: [facility] [id number], check blood sugar once a day. DX: 250.00 Start Date: 11/30/14 Status: Ordered warfarin 2 mg oral tablet See Instructions, 3 tabs mg Oral 4 days per week or as directed, # 90 tabs, 0 Refill(s), Pharmacy: [facility], 3 tabs mg Oral 4 days per week or as directed Start Date: 09/08/15 Status: Ordered warfarin 5 mg oral tablet 5 mg 1 tabs, Oral, 3x/Wk, Take 1 tab 3 times a week or as directed, # 90 tabs, 0 Refill(s), [facility], 1 tabs Oral 3x/Wk,Instr:Take 1 tab 3 times a week or as directed Start Date: 09/08/15 Status: Ordered Results Hematology Most recent to [...] gone., # 21 tabs, 0 Refill(s), Pharmacy: [facility], Take 6 tabs on day one and then decrease by one tablet daily until gone.
--- OUTSIDE RECORDS SUMMARY | 2016-07-20 02:27 | XMS REPORT | Referral Summary ---
Author Author [facility], Family Medicine Organization [facility] Address Unknown Phone Unavailable Care Team Providers Care Cable Operator Name Role Phone Cj Hilliard Primary Care Physician [phone] Encounter VC Date(s): 09/06/15 - 09/06/15 [facility] [address] [place] [address] Discharge Diagnosis: Pain of right calf Discharge Diagnosis: Personal history of DVT (deep vein thrombosis) Discharge Disposition: 01-Home or Self Care Attending Physician: Angella Sanabria PA-C Admitting Physician: Angella Sanabria PA-C Vital Signs Most recent to 1 oldest [Reference Range]: Temperature Tympanic 36.1 degC [36.6-38.1 degC] *LOW* (09/06/15 1:23 PM) Apical Heart Rate 90 bpm [60-100 bpm] (09/06/15 1:23 PM) Blood Pressure 106/70 mmHg [90-140/60-90 mmHg] (09/06/15 1:23 PM) Problem List Condition Effective Dates Status [...] - 05/19/14 Resolved enthesopathy(Confirm ed)3 Squamous cell 3/20/13 - 05/19/14 Resolved carcinoma(Confirmed) 4 TIA (transient [...] BID, # 180 tabs, 0 Refill(s), Pharmacy: [id number], 1 tabs Oral BID,x90 days Start Date: 08/16/15 Stop Date: 11/14/15 Status: Ordered CeleBREX Oral, Gets from [email or web address], 0 Refill(s) Start Date: 08/16/15 Status: Ordered metFORMIN 1000 mg oral tablet 1,000 mg 1 tabs, Oral, BID, # 180 tabs, 3 Refill(s), Pharmacy: [id number], 1 tabs Oral BID Start Date: 06/28/15 Status: Ordered True track test strips True track test strips, See Instructions, check blood sugar once a day. DX: 250.00, # 100 Each, 2 Refill(s), Pharmacy: [facility] [id number], check blood sugar once a day. DX: 250.00 Start Date: 11/30/14 Status: Ordered warfarin 2 mg oral tablet See Instructions, 3 tabs mg Oral 4 days per week or as directed, # 90 tabs, 6 Refill(s), Pharmacy: [id number], 3 tabs mg Oral 4 days per week or as directed Start Date: 09/29/14 Status: Ordered warfarin 5 mg oral tablet 5 mg 1 tabs, Oral, 3x/Wk, Take 1 tab 3 times a week or as directed, # 90 tabs, 3 Refill(s), Pharmacy: [id number], 1 tabs Oral 3x/Wk,Instr:Take 1 tab 3 times a week or as directed Start Date: 09/29/14 Status: Ordered Results Coagulation Most recent to 1 oldest [Reference Range]: PT Venous (09/06/15 2:32 PM) INR [0.8-1.2] 1.7 1 *HI* (09/06/15 2:32 PM) 1Result Comment: Normal (no anticoagulant): 0.8 - 1.2 Units Routine Therapeutic Range: 2.0 - 3.0 Units High Risk Therapeutic Range: 2.5 - 3.5 Units Immunizations Vaccine Date Refusal Reason influenza virus vaccine, inactivated 02/06/14 zoster vaccine live 04/27/14 Procedures Procedure Date Related Diagnosis Body Site Excision of lesion of fascia of hand1 1BASEL CELL OF LEFT HAND EXCISED 05/28 Social History Social History Type Response Smoking Status Never smoker Assessment and Plan Extracted from: Title: Ambulatory Patient Education Author: Angella Sanabria PA-C Date : 09/06/15 Preventive Medicine Venous Thromboembolism, Prevention A venous thromboembolism is a blood clot that forms in a vein. A blood clot in a deep vein is called a deep venous thrombosis (DVT). A blood clot in the lungs is called a pulmonary embolism (PE). Blood clots are dangerous and can cause . Blood clots can form in the: Lungs. Legs. Arms. CAUSES A blood clot can form in a vein from different conditions. A blood clot can develop due to: Blood flow within a vein that is sluggish or very slow. Medical conditions that make the blood clot easily. Vein damage. RISK FACTORS Risk factors can increase your risk of developing a blood clot. Risk factors can include: Smoking. Obesity. Age. Immobility or sedentary lifestyle. Sitting or standing for long periods of time. Chronic or long-term bedrest. Medical or past history of blood clots. Family history of blood clots. Hip, leg, or pelvis injury or trauma. Major surgery, especially surgery on the hip, knee, or abdomen. and childbirth. control pills and hormone replacement therapy. Medical conditions such as Peripheral vascular disease (PVD). Diabetes. Cancer. SYMPTOMS Symptoms of VTE can depend on where the clot is located and if the clot breaks off and travels to another organ. Sometimes, there may be no symptoms. DVT symptoms can include: Swelling of the leg or arm, especially on one side. Warmth and redness of the leg or arm, especially on one side. Pain in an arm or leg. Leg pain may be more noticeable or worse when standing or walking. PE symptoms can include: Shortness of breath. Coughing. Coughing up blood or blood-tinged mucus (hemoptysis). Chest pain or chest pain with deep breaths (pleuritic chest pain). Apprehension, anxiety, or a feeling of impending doom. Rapid heartbeat. PREVENTION Exercise regularly. Take a brisk 30 minute walk every day. Staying active and moving around can help prevent blood clots. Avoid sitting or lying in bed for long periods of time. Change your position often, especially during a long trip. Women, especially those over the age of 35, should consider the risks and benefits of taking estrogen medicines. This includes control pills and hormone replacement therapy. Do not smoke, especially if you take estrogen medicines. If you smoke, talk to your caregiver on how to quit. Eat plenty of fruits and vegetables. Ask your caregiver or dietitian if there are foods you should avoid. Maintain a weight as suggested by your caregiver. Wear loose-fitting clothing. Avoid constrictive or tight clothing around your legs or waist. Try not to bump or injure your legs. Avoid crossing your legs when you are sitting. Do not use pillows under your knees unless told by your caregiver. Take all medicines that your caregiver prescribes you. Wear special stockings (compression stockings or AIDEN hose) if your caregiver prescribes them. Wearing compression stockings (support hose) can make the leg veins more narrow. This increases blood flow in the legs and can help prevent blood clots. It is important to wear compression stockings correctly. Do not let them bunch up when you are wearing them. TRAVEL Long distance travel can increase the risk of a blood clot. To prevent a blood clot when traveling: You should exercise your legs by walking or by pumping your muscles every hour. To help prevent poor circulation on long trips, stand, stretch, and walk up and down the aisle of your airplane, train, or bus as often as possible to get the blood moving. Do squats if you are able. If you are unable to do squats, raise your foot on the balls of your feet and tighten your lower leg muscles (particularly the calve muscles) while seated. Pointing (flexing and extending) your toes while tightening your calves while seated are also good exercises to do every hour during long trips. They help increase blood flow and reduce risk of DVT. Stay well hydrated. Drink water regularly when traveling, especially when you are sitting or immobile for long periods of time. Use of drugs to prevent DVT during routine travel is not generally recommended. Before taking any drugs to reduce risk of DVT, consult your caregiver. SURGERY AND HOSPITALIZATION People who are at high risk for a blood clot may be given a blood thinning medicine (anticoagulant) when they are hospitalized even if they are not going to have surgery. A long trip prior to surgery can increase the risk of a clot for patients undergoing hip and knee replacements. Talk to your caregiver about travel plans before your surgery. After hip or knee surgery, your caregiver may give you anticoagulants to help prevent blood clots. Anticoagulants may be given to people at high risk of developing thromboembolism, before, during, or sometimes after surgery, including people with clotting disorders or with a history of past thromboembolism. TRAVEL AFTER SURGERY In orthopedic surgery, the cutting of bones prompts the body to increase clotting factors in the blood. Due to the size of the bones involved in hip and knee replacements, there is a higher risk of blood clotting than other orthopedic surgeries. There is a risk of clotting for up to 46 weeks after surgery. Flying or traveling long distances can increase your risk of a clot. As a result, those who travel long distances may need additional preventive measures after their procedure. Drink only non-alcoholic beverages during your flight, train, or car travel. Alcohol can dehydrate you and increase your risk of getting blood clots. SEEK IMMEDIATE MEDICAL CARE IF: You develop chest pain. You develop severe shortness of breath. You have breathing problems after traveling. You develop swelling or pain in the leg. You begin to cough up bloody mucus or phlegm (sputum). You feel dizzy or faint. This information is not intended to replace advice given to you by your health care provider. Make sure you discuss any questions you have with your health care provider. Document Released: 04/18/2010 Document Revised: 01/22/2013 Document Reviewed: ExitCare Patient Information 2015 [employer]. No follow up information was provided. Extracted from: Title: Office Visit Note- R calf Author: Angella Sanabria PA-C Date: pain Assessment/Plan Pain of right calf Advised pt that we should obtain an US of the LE. Our tech was unable to fit pt in today, so [place] [facility] [place] Even though he is on Warfarin, he hasn't had his level checked in several months. I think this is probably more of thrombophlebitis. If the US is negative, we could do some compression hose and steroids if he would like. Ordered: Office Visit Level 4 Est 30904 Personal history of DVT (deep vein thrombosis) Will check PT/INR today. Pt advised to make sure he has this checked monthly(or as directed). Ordered: Office Visit Level 4 Est 31987
--- OUTSIDE RECORDS SUMMARY | 2016-07-20 02:27 | XMS REPORT | Referral Summary ---
Author Author [facility] Family Medicine Organization [facility] Address Unknown Phone Unavailable Care Team Providers Care Railways Assistant Name Role Phone Cj Hilliard Primary Care Physician [phone] Encounter VC Date(s): 08/16/15 - 08/16/15 [facility], [address] [place] [id number] Discharge Disposition: 01-Home or Self Care Attending Physician: Markie Hilliard MD Admitting Physician: Markie Hilliard MD Vital Signs Most recent to 1 oldest [Reference Range]: Blood Pressure 130/70 mmHg [90-140/60-90 mmHg] (08/16/15 9:08 AM) Problem List Condition Effective Dates Status [...] BID, # 180 tabs, 0 Refill(s), Pharmacy: [facility], 1 tabs Oral BID,x90 days Start Date: 08/16/15 Stop Date: 11/14/15 Status: Ordered CeleBREX Oral, Gets from [facility], 0 Refill(s) Start Date: 08/16/15 Status: Ordered metFORMIN 1000 mg oral tablet 1,000 mg 1 tabs, Oral, BID, # 180 tabs, 3 Refill(s), Pharmacy: [facility], 1 tabs Oral BID Start Date: 06/28/15 Status: Ordered True track test strips True track test strips, See Instructions, check blood sugar once a day. DX: 250.00, # 100 Each, 2 Refill(s), Pharmacy: [facility] [address], check blood sugar once a day. DX: 250.00 Start Date: 11/30/14 Status: Ordered warfarin 2 mg oral tablet See Instructions, 3 tabs mg Oral 4 days per week or as directed, # 90 tabs, 6 Refill(s), Pharmacy: [facility], 3 tabs mg Oral 4 days per week or as directed Start Date: 09/29/14 Status: Ordered warfarin 5 mg oral tablet 5 mg 1 tabs, Oral, 3x/Wk, Take 1 tab 3 times a week or as directed, # 90 tabs, 3 Refill(s), Pharmacy: [facility], 1 tabs Oral 3x/Wk,Instr:Take [...] Patient Education Author: Markie Hilliard MD Date: 08/16/15 Family Medicine Back Exercises Back exercises help [...] Released: 06/07/2005 Document Revised: 07/22/2012 Document Reviewed: ExitCare Patient Information 2015 [employer]. No follow up information was provided. Extracted from: Title: Office Visit Note Author: Markie Hilliard MD Date: 08/16/15 Assessment/Plan Anticoagulant long-term use This issue was reviewed, appears stable, and current therapy continued except as mentioned. Appropriate lab was reviewed from the most recent appropriate entry and lab was ordered if needed in the cpoe /nursing orders, and follow up recommended generally in 90 days and no later then six months. PT pending. Chronic back pain The patient's issue is nearly or completely resolved. There is no further issues or testing desired by them at this time. Has celebrex PRN. IMPRESSION: 1. 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 2. Degenerative disc disease throughout with hypertrophic bony lipping of the endplates. 3. Sclerotic degenerative changes the SI joints bilaterally. [1] Chronic right hip pain The patient's issue is nearly or completely resolved. There is no further issues or testing desired by them at this time. Has celebrex. IMPRESSION: Mild degenerative changes, otherwise unremarkable. [2] Pulmonary embolus The patient's issue is nearly or completely resolved. There is no further issues or testing desired by them at this time. On coumadin. Solar elastosis We discussed several options for treatment for this condition. The patient declined any changes or other treatments at this time. The patient was offered and/or directed to a specialist for this issue. The patient refused or at least deferred any referral at this time. Consider efudex when interested. Declined at this time. Squamous cell carcinoma The patient's issue is nearly or completely resolved. There is no further issues or testing desired by them at this time. Type 2 diabetes, controlled, with peripheral neuropathy Please make the medication adjustments we discussed. Please notify the office for any difficulties or concerns. Amaryl to 1mg po bid. Orders: glimepiride, 1 mg 1 tabs, Oral, BID, # 180 tabs, 0 Refill(s), Pharmacy : [facility], 1 tabs Oral BID,x90 days
[2016-07-20] MEDS ORDERED: [UNRECOGNIZED DRUG - REMARK] (02:30)
--- NOTE | 2016-07-20 02:30 | ERPDOC ---
Departure Disposition Decision Date: Jul 20, 2016 Disposition Decision Time: 03:36 Disposition: 02 TO [facility] Impression Impression Impression: Primary Impression: Leg weakness, bilateral Additional Impression: Dehydration Severity: Severe Condition: Stable Seen By: Physician only Referrals: ZAC LOPEZ MD (Family) Problems/Meds/Labs Reviewed?: Yes Medications reviewed and manag: Yes Follow up care ordered?: Yes Mental Status: Alert HPI - General Medical General Chief Complaint: Weakness/Neuro Symptoms Stated Complaint: CANT WALK Time Seen by Provider: 02:13 Source: patient, family Exam Limitations: clinical condition HPI - General Medical Initial Comments Patient has had progressive and consistent lower extremity weakness for several weeks going on months now. Patient notes that over the last 30 days he has progressively gotten to the point where he is unable to stand on his own, himself up from a seated position, and has had to have assistance daily from family and friends. The patient became so weak he could not even move his legs, and so he called EMS. Family, EMS, and forceful although the patient, and conversed on his home. Patient elected to come in by private vehicle, his [id number] driving him with law enforcement escort and assistance. Patient's only complaint is progressive generalized weakness especially in the lower extremities. He states he has severe diabetic neuropathy in his legs, has decreased sensation as well as decreased strength. Patient denies fevers, nausea or vomiting, abdominal complaints, chest complaints, headaches, dizziness, or changes in sensation. Patient's primary physician is Dr. Lopez, who according to the patient is aware of his progressively worsening condition, but no arrangements have been made for alternate living assistance at this time. Tonight the patient states that it simply as time tonight to get assistance, that he does not feel like he can live at home with only family assistance any longer. Occurred At: home Onset: Gradual Severity: severe Associated Symptoms: DENIES: chest pain, cough, diaphoresis, fever/chills, headaches, loss of appetite, malaise, nausea/vomiting, rash, seizure, shortness of breath, syncope, weakness Hx of Similar Symptoms: Yes Allergies: Coded Allergies: No Known Allergies (Unverified , 07/20/16) Past History Patient Medical History Problem List Updates: Bfa-gctxpib-xrzuhsekc diabetes DVT TIA Severe lower extremity neuropathy Patient Surgical History Tonsillectomy/Adenoidectomy Past Medical History Metabolic: diabetes Neurological: TIA Hematologic: DVT Surgical History General: tonsils Family History Family History: Negative Social History Smoking Status: Never smoker Does patient use chewing tobac: No Second Hand Exposure: No Substance Use Type: does not use Alcohol Intake: none Record Review Pertinent history updated: Yes Review of Systems Constitutional Constitutional: dizziness, fatigue, DENIES: appetite decrease, appetite increase, chills, fever, weakness ENMT Ears: DENIES: pain Hearing: DENIES: hearing loss, tinnitus Balance: DENIES: vertigo Mouth/Throat: DENIES: change in swallowing, change in voice, hoarsness, painful swallowing, sore throat Cardiovascular Cardiac: DENIES: chest pain, dyspnea on exertion Rhythm/Rate: DENIES: irregular beat, palpitations, tachycardia Vascular: DENIES: pedal edema Pulmonary Respiratory: DENIES: cough, dyspnea, pleuritic chest pain GI Upper Abdomen: DENIES: dysphagia, heartburn/indigestion, nausea, pain, vomiting Lower Abdomen: DENIES: blood in stool, constipation, diarrhea, pain General: DENIES: burning, dysuria, frequency, pain, urgency Musculoskeletal General: DENIES: cramps, joint pain, joint swelling, pain, weakness Integumentary Skin: DENIES: rash, sores Neurological General: DENIES: headache, numbness, tingling, vertigo, weakness Physical Exam General General Nourishment: well nourished, well developed, appears stated age General Body Habitus: disheveled Vitals and Pain First Documented Vital Signs Date Time Temp Pulse Resp B/P Pulse Ox O2 Delivery O2 Flow Rate FiO2 07/20/16 02:22 98.5 109 19 121/78 98 Room Air Weight: Kilograms: 110.000 Height (feet): 6 Height (inches): 3.50 Triage Pain Scale: RN VS reviewed by Provider: Yes Comments Patient is moderately confused, but can give fairly detailed history Normal Exams: Head: Normocephalic w/o trauma Eyes: Pupils are PERRLA w/ EOMI, No scleral icterus, irritation, or foreign bodies noted ENMT: No facial trauma, nasal exudates, pharyngeal erythema, or exudates are noted Neck: Full range of motion, without adenopathy, JVD, bruits or thyromegaly Chest/Resp: Clear all haley, with good airflow, and symmetry bilaterally CV: Regular rate and rhythm, without murmur or gallop, Pulses 2+ all extremities, capillary refill, <2 seconds all ext., no pedal edema noted Abdomen: Bowel sounds positive, soft, non-tender, non-distended, no hepatosplenomegaly, masses or bruits noted Lymphatic: No lymphadenopathy, or lymphedema noted Musculoskeletal: No tenderness, or deformity noted, good range of motion, all extremities Integumentary: No rashes, hives, or bruising noted, hair and nails, without abnormality Neurologic: Patient is alert, and oriented, cranial nerves, motor/sensory/ cerebellar, exams w/o gross deficits, to observation Psychiatric: Patient exhibits, appropriate attention, emotion and affect Neurologic (brief) Neurological Brief: FOUND: CN w/o gross def to obs, ataxia, NOT FOUND: DTR 2/4 all extremities, gait w/o gross def to obs Comments Patient has 4 out of 5 strength in the lower extremities, 5 out of 5 strength in the upper, but with poor coordination Significantly diminished sensation in the lower extremities Psychiatric (brief) Psychiatric Brief: FOUND: alert, attentive, normal affect (flat affect), NOT FOUND: oriented Progress Results/Orders Orders Procedure Category Date Status Time Iv Lock (Ed Only) EDM 07/20/16 Transmitted 02:22 Cbc W/Auto LAB 07/20/16 Complete Diff-Reflex Manual Cmp - Comprehensive LAB 07/20/16 Complete Metabolic Ua, Dip Wreflex LAB 07/20/16 Complete Microsc & Lens Blocker 02:22 Ammonia LAB 07/20/16 Complete 02:22 Ct Head W/O Contrast CT 07/20/16 Taken Normal Saline (Normal PHA 07/20/16 In Process Saline Iv) 03:15 Lab Results Laboratory Tests Test 07/20/16 02:27 07/20/16 02:34 07/20/16 03:12 White Blood Count 9.2T/MM3 Red Blood Count 4.39M/MM3 Hemoglobin 13.3GM/DL Hematocrit 39.0% Mean Corpuscular Volume 88.8UM3 Mean Corpuscular Hemoglobin 30.3UUG Mean Corpuscular Hemoglobin Concent 34.1GM/DL RDW Standard Deviation 39.1FL Platelet Count 247T/MM3 Mean Platelet Volume 9.5UM3 Immature Granulocyte % (Auto) 0.2% Neutrophils (%) (Auto) 71.2% Lymphocytes (%) (Auto) 15.5% Monocytes (%) (Auto) 10.1% Eosinophils (%) (Auto) 2.7% Basophils (%) (Auto) 0.3% Absolute Immature Granulocyte (auto 0.02T/MM3 Absolute Neutrophils (auto) 6.6T/MM3 Absolute Lymphocytes (auto) 1.4T/MM3 Absolute Monocytes (auto) 0.9T/MM3 Absolute Eosinophils (auto) 0.3T/MM3 Absolute Basophils (auto) 0.0T/MM3 Turbidity < 20 Sodium Level 138MEQ/L Potassium Level 4.0MEQ/L Chloride Level 101MEQ/L Carbon Dioxide Level 24MEQ/L Anion Gap 13MEQ/L Blood Urea Nitrogen 16.0MG/DL Creatinine 0.8MG/DL Glomerular Filtration Rate Calc 94 BUN/Creatinine Ratio 20RATIO Glucose Level 156MG/DL Calculated Osmolality 270MOSM/KG Calcium Level 8.8MG/DL Total Bilirubin 2.20MG/DL Icterus Index < 2 Aspartate Amino Transf (AST/SGOT) 31U/L Alanine Aminotransferase (ALT/SGPT) 35U/L Alkaline Phosphatase 108U/L Ammonia < 9UMOL/L Total Protein 6.6G/DL Albumin 3.3G/DL Globulin 3.3G/DL Albumin/Globulin Ratio 1.0RATIO Chemistry Specimen Hemolysis < 15 Glucometer 139mg/dL Urine Collection Type Cleancatch-midstream Urine Color Yellow Urine Turbidity Clear Urine pH 5.0 Urine Specific [place] 1.020 Urine Protein Trace Urine Glucose (UA) Negative Urine Ketones 2+ Urine Blood Trace-lysed Urine Nitrite Negative Urine Bilirubin 1+ Urine Urobilinogen 1.0EU/DL Urine Leukocyte Esterase Negative Urinalysis Comment Microscopic not ind. Medications Current ED Medications Sodium Chloride (Normal Saline IV) 1,000 ml @ 250 mls/hr Q4H ONCE IV Last administered on 07/20/16t 03:17; Start 07/20/16 at 03:15; Stop 07/20/16 at 07:14 Progress Progress CBC - normal CMP - normal except mild elevated blood glucose and mildly elevated bilirubin UA - n CT head -normal Patient remained moderately tachycardic, IV fluid bolus begun in ER Discussed with Dr. Shepherd, we'll admit observation for dehydration with profound bilateral leg weakness. MENA PATEL MD Jul 20, 2016 02:30
[2016-07-20 02:32] LABS: BASOPHILS % (AUTO) 0.3 % (0-2); EOSINOPHILS # (AUTO) 0.3 T/MM3 (0-0.5); EOSINOPHILS % (AUTO) 2.7 % (0-4); HGB - HEMOGLOBIN 13.3 GM/DL (13.5-17.5); IMMATURE GRANULOCYTE # (AUTO) 0.02 T/MM3 (0.00-0.03); IMMATURE GRANULOCYTE % (AUTO) 0.2 % (0.0-0.5); LYMPHOCYTES # (AUTO) 1.4 T/MM3 (1-4.8); LYMPHOCYTES % (AUTO) 15.5 % (23-45); MEAN CORPUSCULAR HGB 30.3 UUG (26-34); MEAN CORPUSCULAR HGB CONC(MCHC 34.1 GM/DL (31-37); MEAN CORPUSCULAR VOLUME 88.8 UM3 (80-100); MEAN PLATELET VOLUME 9.5 UM3 (9.4-12.4); MONOCYTES # (AUTO) 0.9 T/MM3 (0-0.8); MONOCYTES % (AUTO) 10.1 % (0-9.0); NEUTROPHILS #(AUTO)-ABSOLUTE 6.6 T/MM3 (1.8-7.7); NEUTROPHILS % (AUTO) 71.2 % (33-66); RED BLOOD COUNT 4.39 M/MM3 (4.50-5.90); WBC - WHITE BLOOD COUNT 9.2 T/MM3 (4.5-11.0)
--- OUTSIDE RECORDS SUMMARY | 2016-07-20 02:35 | XMS REPORT | Continuity of Care Document ---
Author Author [facility] Organization [facility] Address Unknown Phone Unavailable Allergies [...] Procedures Code Description [place] [address] REMOVAL OF SKIN LESION Jennifer Pal MD [...] Turbid NA Blood Negative NA Negative Color [place] NA Glucose, Urine Trace Negative Ketones Trace Negative Leukocyte Esterase Pos 1+ NA Negative Nitrites Negative NA Negative pH 6.0 NA 5.0-8.0 Protein Pos 1+ Negative Specific [place] 1.035 NA 1.003-1.030 UA Collection type Voided NA Urobilinogen 1.0 mg/dL <1.0 Urine Microscopic - 07/17/16 12:20 Bacteria None Seen NA Crystals Ca Ox NA Epithelial Cells 5 /HPF Microscop. Exam Perf. performed NA Urine Mucus Present NA WBC, Urine 10 /HPF 0-4 Encounters ACCT No. Visit Date/Time Discharge Status Pt. Type Provider Facility Loc./Unit Complaint [id number] 02/11/2013 10:08:00 2012 18:00:00 DIS Outpatient Kae CRESPO, Jennifer Malone [facility] on [address]
--- OUTSIDE RECORDS SUMMARY | 2016-07-20 02:35 | XMS REPORT ---
Author Author [place], [facility] - Organization Unknown Address Unknown Phone Unavailable [...]
[2016-07-20 02:41] LABS: ALBUMIN 3.3 G/DL (3.5-5.0); ALKALINE PHOSPHATASE 108 U/L (38-126); ALT (SGPT) 35 U/L (21-72); ANION GAP 13 MEQ/L (5-15); AST (SGOT) 31 U/L (17-59); BUN/CREATININE RATIO 20 RATIO (6-26); CALCIUM 8.8 MG/DL (8.4-10.2); CHLORIDE 101 MEQ/L (98-107); CO2 - CARBON DIOXIDE 24 MEQ/L (22-30); CREATININE 0.8 MG/DL (0.8-1.5); GLOMERULAR FILTRATION RATE 94; GLUCOSE 156 MG/DL (75-110); SODIUM 138 MEQ/L (134-144); TOTAL PROTEIN 6.6 G/DL (6.3-8.2)
[2016-07-20] MEDS ORDERED: NORMAL SALINE 1,000 ML IV ONE (03:15)
[2016-07-20 03:21] LABS: BLOOD, URINE TRACE-LYSED (NEGATIVE); COLOR,URINE YELLOW (YELLOW); LEUKOCYTE ESTERASE ,URINE NEGATIVE (NEGATIVE); NITRITE,URINE NEGATIVE (NEGATIVE)
--- NOTE | 2016-07-20 03:48 | HPPDOC ---
MENA CURRAN MD 07/20/16 0347: HPI - Adult Date DATE: 07/20/16 TIME: 03:41 General History of Present Illness Jose is a 76 y/o w/ h/o DM type 2, long-standing progressive peripheral neuropathy, DVT on warfarin who presents to ED at [facility] with cc of worsening bilateral LE weakness and inability to ambulate even with assistance. Purportedly patient has had progressively worsening weakness in both of his legs over the past 4-6 weeks and tonight it was to the point that he was unable to get out of bed even w/ the assistance of his neighbor. He decided to come to the ER b/c he was concerned that he would be unable to care for himself at home. Patient states that the weakness in his legs started over 15 years ago, and has "accelerated" over the past 3-5 years to the point that he has progressively had difficulty with ambulation. Over the past month or so it has been particularly worrisome and then this AM when he felt like he had "no strength left in my legs". He says his neuropathy has been more about chronically debilitating muscle weakness and numbness but has not been painful, and he has not had any specific treatment for it and has not seen a specialist. In ER patient had a CT head which was negative. He was noted to be a little tachycardic and was given some IV fluids for his mild dehydration. Labs done were releatively unremarkable. Patient has not had any specific illness, and denies n/v/d, f/c/s, respiratory symptoms, chest pain and change in bladder or bowel function. He was recently placed on a medicine for depression, anxiety and to help him sleep which they think is Remeron, however they are not quite sure. Patient to be admitted to the Hospitalist service for further evaluation and management. Past Medical History Past Medical History Fel-xuaemqu-wrhlcrzgm diabetes DVT TIA Severe lower extremity neuropathy Surgical History Patient's Surgical History: Tonsillectomy/Adenoidectomy Current Medications Home Meds Reported Medications Warfarin Sodium (Warfarin Sodium) 2 Mg Tablet, 3 TAB PO 4XW, #90 TAB 1 Refill 07/20/16 Glimepiride (Glimepiride) 1 Mg Tablet, 1 TAB PO BID, #30 TAB 5 Refills 07/20/16 Mirtazapine (Mirtazapine) 15 Mg Tablet, 15 MG PO HS, TAB Take 1 tablet, by mouth, 1 time a day at bedtime. 07/20/16 Metformin HCl (Metformin HCl) 1,000 Mg Tablet, 1 TAB PO BIDWM, TAB Take one tablet, by mouth, twice daily with meals 09/08/15 Allergies: Coded Allergies: No Known Allergies (Unverified , 07/20/16) Family History Family History: Non-contributory in this setting Social History Smoking Status: Never smoker Does patient use chewing tobac: No Second Hand Exposure: No Substance Use Type: does not use Alcohol Intake: none Review of Systems All Other Systems All Other Systems: Reviewed (remainder of 10-point ROS Neg.) Physical Exam General General Nourishment: well developed, apparent age Vital Signs Vital Signs Date Time Temp Pulse Resp B/P Pulse Ox O2 Delivery O2 Flow Rate FiO2 07/20/16 02:48 107 19 116/66 96 Room Air 07/20/16 02:22 98.5 Height (Feet): 6 Height (Inches): 3.50 Eyes Brief: FOUND: EOMI, PERRL, NOT FOUND: scleral icterus ENMT Brief: FOUND: hearing intact, NOT FOUND: nasal exudate Neck Brief: NOT FOUND: JVD, adenopathy, nuchal rigidity, thyromegaly Respiratory Brief: FOUND: clear all haley, equal bilaterally Cardiovascular (brief) Cardiac Brief: FOUND: regular rhythm, NOT FOUND: pedal edema Abdomen (brief) Abdominal Brief: FOUND: BS normo active x4, soft, NOT FOUND: tender Integumentary (brief) Integumentary Brief: FOUND: dry, pink, warm Neurologic (brief) Comments Reduced strength in the LEs bilaterally, seems to be equally weak on both sides. Neurologic RN Documented GCS Eye Opening: (4)Spontaneous Verbal: (5)Oriented Motor: (6)Obeys Commands Total: Psychiatric (brief) FOUND: alert, normal affect, oriented Laboratory Laboratory Tests Test 07/20/16 02:27 07/20/16 02:34 07/20/16 03:12 White Blood Count 9.2T/MM3 Red Blood Count 4.39M/MM3 Hemoglobin 13.3GM/DL Hematocrit 39.0% Mean Corpuscular Volume 88.8UM3 Mean Corpuscular Hemoglobin 30.3UUG Mean Corpuscular Hemoglobin Concent 34.1GM/DL RDW Standard Deviation 39.1FL Platelet Count 247T/MM3 Mean Platelet Volume 9.5UM3 Immature Granulocyte % (Auto) 0.2% Neutrophils (%) (Auto) 71.2% Lymphocytes (%) (Auto) 15.5% Monocytes (%) (Auto) 10.1% Eosinophils (%) (Auto) 2.7% Basophils (%) (Auto) 0.3% Absolute Immature Granulocyte (auto 0.02T/MM3 Absolute Neutrophils (auto) 6.6T/MM3 Absolute Lymphocytes (auto) 1.4T/MM3 Absolute Monocytes (auto) 0.9T/MM3 Absolute Eosinophils (auto) 0.3T/MM3 Absolute Basophils (auto) 0.0T/MM3 Turbidity < 20 Sodium Level 138MEQ/L Potassium Level 4.0MEQ/L Chloride Level 101MEQ/L Carbon Dioxide Level 24MEQ/L Anion Gap 13MEQ/L Blood Urea Nitrogen 16.0MG/DL Creatinine 0.8MG/DL Glomerular Filtration Rate Calc 94 BUN/Creatinine Ratio 20RATIO Glucose Level 156MG/DL Calculated Osmolality 270MOSM/KG Calcium Level 8.8MG/DL Total Bilirubin 2.20MG/DL Icterus Index < 2 Aspartate Amino Transf (AST/SGOT) 31U/L Alanine Aminotransferase (ALT/SGPT) 35U/L Alkaline Phosphatase 108U/L Ammonia < 9UMOL/L Total Protein 6.6G/DL Albumin 3.3G/DL Globulin 3.3G/DL Albumin/Globulin Ratio 1.0RATIO Chemistry Specimen Hemolysis < 15 Glucometer 139mg/dL Urine Collection Type Cleancatch-midstream Urine Color Yellow Urine Turbidity Clear Urine pH 5.0 Urine Specific [place] 1.020 Urine Protein Trace Urine Glucose (UA) Negative Urine Ketones 2+ Urine Blood Trace-lysed Urine Nitrite Negative Urine Bilirubin 1+ Urine Urobilinogen 1.0EU/DL Urine Leukocyte Esterase Negative Urinalysis Comment Microscopic not ind. Assessment & Plan Assessment 1) Acute on Chronic Lower Extremity Weakness in setting of long-standing peripheral neuropathy 2) Acute gait disturbance r/t #1 3) Mild Dehydration 4) Diabetes Mellitus Type 2 5) H/o DVT on warfarin 6) H/o TIA Plan/Intensity of Service Plan: Admit to Hopsitalist Service IVFs Carb consistent diet Correctional Scale Insulin Hold glyburide and metformin PT consult SW consult re: possible placement to a SNF/Rehab unit Labs in the AM including Mg, Phos, B12 level Continue warfarin and check a PT DVT Prophylaxis: SCD'S Code Status Hospital Course Summary Disclaimer The hospital course summary below is not to be considered part of the above Progress Note. HUSSEIN MARTINEZ MD 07/20/16 1043: Past Medical History Current Medications Home Meds Reported Medications Warfarin Sodium (Warfarin Sodium) 2 Mg Tablet, 3 TAB PO 4XW, #90 TAB 1 Refill 07/20/16 Glimepiride (Glimepiride) 1 Mg Tablet, 1 TAB PO BID, #30 TAB 5 Refills 07/20/16 Mirtazapine (Mirtazapine) 15 Mg Tablet, 15 MG PO HS, TAB Take 1 tablet, by mouth, 1 time a day at bedtime. 07/20/16 Metformin HCl (Metformin HCl) 1,000 Mg Tablet, 1 TAB PO BIDWM, TAB Take one tablet, by mouth, twice daily with meals 09/08/15 Allergies: Coded Allergies: No Known Allergies (Unverified , 07/20/16) Assessment & Plan Assessment 07/20/2016-Dr. Martinez I have reviewed the H&P above from Dr. Curran. I have evaluated the patient. I have reviewed past medical history, surgical history, family history, and medications and agree with his assessment with additions below. The patient has history of ischemic stroke in addition to TIA. 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 The patient describes a several year history of progressive neuropathy and he stopped driving a few years ago when he could no longer feel the brakes. He has had some progressive weakness especially over the past month. He had to get a lift chair recently because he was not able to get out of his other chairs at home. Yesterday he got out of bed but then could not walk because of severe weakness. He denies having any falls. He denies any significant back pain. He has not been ill otherwise recently. He was recently started on Remeron for depression and help with sleep and he noted that his urine has been dark recently. On exam he is alert and oriented and in no acute distress. HEENT is normocephalic and atraumatic. Sclera are anicteric. Pupils are equal. Extraocular movements are intact. Oropharynx is moist. Neck is supple with no bruits. Cardiovascular reveals an irregularly irregular rhythm without murmur. Chest is clear to auscultation. Abdomen is soft and nontender. Extremities are free of edema. Skin is warm and dry. On neurologic exam he is alert and oriented 3. He is a fairly good historian. On cranial nerve exam he may have some mild left facial droop at the corner of his mouth. Otherwise no abnormalities. Motor strength is fairly good in the upper extremities. 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 Strength in the lower extremities is decreased bilaterally to a fairly equal degree. Strength is 3-4 in the bilateral lower extremities The patient did have hypotension this morning at 86/57. He felt mildly lightheaded. He was given 1 L of IV fluids over 2 hours and blood pressure was improving after the first 500 ML's. Urine did show increased ketones at 2+. Bilirubin is mildly elevated at 2.2. Other lab work looks fairly good. TSH is mildly elevated at 5.27 and A1c is 6.5 CPK is normal at 86 Impression History of peripheral neuropathy with recent rapidly progressive weakness History of DVT on Coumadin CVA based on CT head showing old right frontal stroke and old possible lacunar/ left basal ganglia stroke. Also seen was moderate generalized atrophy Mild hypothyroidism Type 2 diabetes mellitus well controlled on oral medications based on hemoglobin A1c Hypotension likely secondary to dehydration Mild elevated bilirubin Irregular heart rhythm Plan IV fluid bolus for rehydration with hypotension and reassess I did consult Dr. Salas regarding his rapidly progressive weakness in his legs. He is concerned about neuritis multiplex. He will evaluate the patient today. Hold Remeron for now. Place patient on telemetry regarding irregular heart rhythm. Continue Coumadin and consult pharmacy for warfarin management Start low-dose Synthroid for mildly elevated TSH B 12 ordered and pending Sliding scale insulin for now and monitor Accu-Cheks MENA CURRAN MD Jul 20, 2016 03:47 HUSSEIN MARTINEZ MD Jul 20, 2016 10:43
--- NOTE | 2016-07-20 03:51 | NUR ---
REPORT PHONE REPORT CALLED TO [facility] ON MEDICAL UNIT; PT TO BE ADMITTED.
[2016-07-20] MEDS ORDERED: ONDANSETRON 4mg/2ml INJECTION IV PRN (04:15)
[2016-07-20] MEDS ORDERED: DEXTROSE 50% SYRINGE 50ml (Eq. 1 AMP) IV PRN (04:15)
[2016-07-20] MEDS ORDERED: ACETAMINOPHEN 325 MG TABLET PO PRN (04:15)
[2016-07-20] MEDS ORDERED: GLUCOSE ORAL GEL 40% 37.5 G TUBE PO PRN (04:15)
--- NOTE | 2016-07-20 04:20 | NUR ---
ADMISSION PT TRANSPORTED TO MEDICAL UNIT VIA CART, WITH BELONGINGS AND DAUGHTER FOLLOWING. PT ASSISTED WITH TRANSFER FROM ED STRETCHER TO UNIT BED WITHOUT INCIDENT.
--- OUTSIDE RECORDS SUMMARY | 2016-07-20 04:31 | XMS REPORT | Continuity of Care Document ---
Author Author [facility] Organization [facility] Address Unknown Phone Unavailable Allergies Active Description [...] Procedures Code Description [place] [address] REMOVAL OF SKIN LESION Jennifer Pal MD [...] Turbid NA Blood Negative NA Negative Color [place] NA Glucose, Urine Trace Negative Ketones Trace Negative Leukocyte Esterase Pos 1+ NA Negative Nitrites Negative NA Negative pH 6.0 NA 5.0-8.0 Protein Pos 1+ Negative Specific [place] 1.035 NA 1.003-1.030 UA Collection type Voided NA Urobilinogen 1.0 mg/dL <1.0 Urine Microscopic - 07/17/16 12:20 Bacteria None Seen NA Crystals Ca Ox NA Epithelial Cells 5 /HPF Microscop. Exam Perf. performed NA Urine Mucus Present NA WBC, Urine 10 /HPF 0-4 Encounters ACCT No. Visit Date/Time Discharge Status Pt. Type Provider Facility Loc./Unit Complaint [id number] 02/11/2013 10:08:00 2012 18:00:00 DIS Outpatient Kae CRESPO, Jennifer Malone [facility] on [address]
--- OUTSIDE RECORDS SUMMARY | 2016-07-20 04:32 | XMS REPORT ---
Author Author [place], [facility] - Organization Unknown Address Unknown Phone [...]
[2016-07-20 05:04] LABS: INR 2.72 (0.76-1.04); PROTHROMBIN TIME 29.6 SEC (9.31-12.49)
[2016-07-20] MEDS: NORMAL SALINE 1,000 ML IV SCH ×2 (07:31→13:30)
--- NOTE | 2016-07-20 07:50 | DI ---
Indication: ITS.REASON: confusion, weakness, on coumadin PROCEDURE: CT HEAD W/O CONTRAST: Encounter: Initial Comparison: None Technique: Axial CT images through the head were performed without contrast. Iterative Reconstruction dose reducing technique was utilized. FINDINGS: Old lacunar infarct or perivascular space in the left basal ganglia. Old right frontal lobe infarcts with encephalomalacia. Moderate generalized atrophy. Possible arachnoid cyst versus atrophy in the anterior aspect of the middle cranial fossa bilaterally. The ventricles are of normal size, shape, and contour for the patient's age. There are extensive areas of low attenuation in the white matter which most likely represent changes from chronic microvascular ischemia. The brainstem, cerebellum, and cerebral hemispheres otherwise have a normal morphology and CT attenuation. There is no evidence of midline displacement. No hemorrhage, signs of acute territorial stroke, mass effect, mass lesions, or edema is evident. The visualized portions of the skull base, midface, and calvarium demonstrate no abnormality. The paranasal sinuses are well aerated and free of significant disease. The tympanic and mastoid cavities appear normal. IMPRESSION: No acute intracranial abnormality or hemorrhage. There is a preliminary report by virtual radiologic. .
--- NOTE | 2016-07-20 08:10 | NUR ---
DM screen/Total energy requirements: RD recommendation : [id number] kcal Estimated daily total energy requirement: 2514 kcal; Where RMR ([facility] [facility]) = 1934 kcal; Activity factor = 1.3 Current diet [id number] does not meet estimated daily energy requirement. DM screen: positive response to four questions on nursing DM screen. M/E: intake, adequacy of diet RD x 1540
--- NOTE | 2016-07-20 08:40 | NUR ---
Status RN reported low BP and patient reporting feeling "slightly dizzy" to Dr Martinez, received order to bolus 500 ml NS at recheck BP. Will notify physician if BP continues to be low.
[2016-07-20] MEDS ORDERED: NORMAL SALINE 500 ML IV ONE (08:45)
[2016-07-20 09:07] LABS: HEMOGLOBIN A1C 6.5 % (6.1-7.9)
[2016-07-20 09:34] LABS: THYROID STIM HORMONE-TSH 5.27 MIU/L (0.47-4.68)
--- NOTE | 2016-07-20 09:40 | NUR ---
BP Recheck BP 103/63 after bolus completed, Dr Martinez in room and is aware of improved blood pressure.
[2016-07-20] MEDS ORDERED: WARF2TAB6 PO (10:25)
[2016-07-20] MEDS ORDERED: MIRT15TA6 PO (10:25)
[2016-07-20] MEDS ORDERED: GLIM1TAB2 PO (10:25)
--- NOTE | 2016-07-20 10:26 | NUR ---
Med List Current med list obtained from Dr Hilliard's office and medication reconciliation list was updated in computer.
[2016-07-20 11:07] LABS: PHOSPHORUS 2.6 MG/DL (2.5-4.5)
[2016-07-20 11:14] LABS: PREALBUMIN 8.2 MG/DL (17.6-36.0)
[2016-07-20] MEDS ORDERED: WARFARIN 5 MG TABLET PO SCH (12:00)
--- NOTE | 2016-07-20 12:04 | NUR ---
CM ARIANNEE SCORE IS 3 Addendum: 07/20/16 at 1204 by MERLENE ORELLANA SW Amended: Links added.
--- NOTE | 2016-07-20 12:05 | NUR ---
CM SPOKE WITH PT, INTRODUCED SELF, PROVIDED CONTACT INFO. VISIT WAS BRIEF SINCE DOCTOR WAS ALSO PRESENT AND GORDY FROM IR WAS PRESENT, TO DO SCREEN. PT WAS SEEN BY PT/OT, WHO RECOMMENDED IRU. PT IS AGREEABLE TO THIS. DC PLAN IS IRU. Addendum: 07/20/16 at 1209 by MERLENE KELLY Amended: Links added.
[2016-07-20] MEDS: PredniSONE 10 MG TABLET PO SCH (12:13)
[2016-07-20] MEDS: INSULIN LISPRO 100 UNIT/ML SQ PRN ×3 (12:14→21:16)
--- NOTE | 2016-07-20 12:19 | DI ---
Indication: ITS.REASON: leg weakness PROCEDURE: LUMBAR SPINE 3 VIEWS: Encounter: Initial Comparison: None Findings: Alignment of the lumbar spine is within normal limits. No acute fracture or subluxation identified. No significant disk space narrowing. Small anterior osteophytes in the upper lumbar and lower thoracic spine. Aortic vascular calcifications. Impression: No acute fracture. .
--- NOTE | 2016-07-20 12:53 | NUR ---
IR referral received. Met with patient and Amrita GARCIA to review expectations of IRU. Patient acknowledged expectation of 3 hours of therapy, 5 days/week. Patient is motivated to increase his strength and endurance and is determined to return to his PLOF at home. Case reviewed with Dr. Pang and Dr. Pang accepted patient for admission to IRU. Will coordinate admission with CM.
--- NOTE | 2016-07-20 14:10 | NUR ---
CM PT ACCEPTED AT IRU. SPOKE WITH DR GIVENS ABOUT THIS, DISCUSSED POSSIBLE TRANSFER DATE OF TOMORROW. SPOKE WITH PT ABOUT THIS, HE SAID HE IS GLAD ABOUT THIS. DISCUSSED POSSIBLE TRANSFER TOMORROW, AND HE WAS AGREEABLE TO THIS. THIS WORKER OFFERED TO CALL HIS FAMILY ABOUT THIS, BUT HE SAID HIS SON/YENY NARVAEZ WILL BE HERE TOMORROW AND HE WILL TELL HIM THEN. PT HAD NO QUESTIONS/NEEDS FOR THIS WORKER.
--- NOTE | 2016-07-20 16:11 | CONSF ---
DATE OF CONSULTATION 07/20/2016 REFERRING PHYSICIAN Georgette Martinez MD PATIENT'S CHIEF COMPLAINT Leg weakness and gait problem. HISTORY OF PRESENT ILLNESS Patient is a 76-year-old male with history of diabetes mellitus. He presented with slowly progressing bilateral lower extremity weakness for the past few years. This has affected his right leg more than the left recently and he has had difficulty standing and walking because of that. Patient has symptoms of diabetic neuropathy with numbness and pain in the extremities including the hands and feet. He has had lower back pain for which he has seen a chiropractor in the past. He denies having any severe lower back pain at present time. Patient had no significant weakness in the upper extremities recently. On admission, he had a CT of the head that showed no acute changes. His lab workup showed a slightly elevated TSH. B12 is still pending. His glucose level has been in the 150 range. The patient is also using warfarin for history of DVT in the right leg. PHYSICAL EXAMINATION On physical examination, the patient was awake, alert, oriented x3. Pupils were round, reactive and equal. Extraocular muscles were intact. Visual field was full. Speech was fluent. Motor examination in the right upper extremity it was 4-4+/5 with worst weakness in the hand, especially in the ulnar distribution. The motor exam on the left upper extremity was 4+-5-/5. In the right lower extremity, it was 4-4+/5, weaker proximally. In the left lower extremity it was 4+/5. Sensory examination was limited to pinprick and temperature sensation in the hands and in the feet to the mid legs. Vibration sensation was absent at the toes and ankles bilaterally. Deep tendon reflexes were 2-/4. Coordination for [id number] was borderline bilaterally. ASSESSMENT 1. 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 This has been associated with proximal right lower extremity weakness and gait problem. 2. Chronic lumbosacral spondylosis and possible spinal stenosis which can affect the patient's gait upon standing and walking. 3. The patient had a low blood pressure in the 90s/60 range. This can be also associated with diffuse weakness and balance problem upon standing. PLAN 1. Start patient on prednisone 30 mg p.o. q.d. for three days, then 20 mg p.o. q.d. for three days, then 10 mg p.o. q.d. for a week, then stop. Monitor sugar closely during that period. 2. Continue physical and occupational therapy. 3. Obtain x-ray of the lumbar spine to rule out any deformities and severe spondylosis. If in this is abnormal then obtain MRI of the lumbar spine. 4. Monitor blood pressure closely. Avoid hypotension. Provide good fluid intake and adjust blood pressure medication accordingly. MTDD
--- NOTE | 2016-07-20 17:45 | NUR ---
Diabetic medications RN called and reported to physician patient's diabetic medications were still on hold and BGM's are running high. Physician stated she would restart Amaryl and depending on labs will possibly start metformin tomorrow. Patient is made aware of this. Will give Amaryl when available from pharmacy.
[2016-07-20] MEDS: GLIMEPIRIDE 1 MG TABLET PO SCH (18:07)
--- NOTE | 2016-07-20 18:39 | NUR ---
Status Patient has been up to the chair most of the day. Ambulated in hallway with x2 staff assistance. Gait unsteady at times, especially when he first starts moving. Denies pain when asked. Patient's daughter in law present most of the day. Minimal needs today. Alarms in use for patient safety. Call light within reach.
[2016-07-21] MEDS: NORMAL SALINE 1,000 ML IV SCH (03:34)
[2016-07-21 03:57] VITALS: BP 131/72; PULSE 79; RESP 20; TEMP 97.7; O2SAT 98
--- NOTE | 2016-07-21 04:47 | NUR ---
Status Pt frequently up to use the urinal during the night. IVF running as charted. Adequate UO. Urine was yellow at 0330 instead of oneal. Pt is more steady and requires less assistance to stand than earlier in shift. Pt was sleepy in evening. Pt mentation is more clear this morning than in evening. SS insulin given as charted. Bed alarm on and call light on. Uses call light appropriately. Will continue to monitor.
[2016-07-21 05:21] LABS: BASOPHILS % (AUTO) 0.2 % (0-2); EOSINOPHILS # (AUTO) 0.2 T/MM3 (0-0.5); EOSINOPHILS % (AUTO) 2.1 % (0-4); HCT - HEMATOCRIT 36.4 % (41-53); HGB - HEMOGLOBIN 12.3 GM/DL (13.5-17.5); IMMATURE GRANULOCYTE # (AUTO) 0.01 T/MM3 (0.00-0.03); IMMATURE GRANULOCYTE % (AUTO) 0.1 % (0.0-0.5); LYMPHOCYTES # (AUTO) 1.3 T/MM3 (1-4.8); LYMPHOCYTES % (AUTO) 15.2 % (23-45); MEAN CORPUSCULAR HGB CONC(MCHC 33.8 GM/DL (31-37); MEAN CORPUSCULAR VOLUME 88.8 UM3 (80-100); MEAN PLATELET VOLUME 10.3 UM3 (9.4-12.4); MONOCYTES # (AUTO) 0.6 T/MM3 (0-0.8); MONOCYTES % (AUTO) 6.5 % (0-9.0); NEUTROPHILS #(AUTO)-ABSOLUTE 6.6 T/MM3 (1.8-7.7); NEUTROPHILS % (AUTO) 75.9 % (33-66); WBC - WHITE BLOOD COUNT 8.7 T/MM3 (4.5-11.0)
[2016-07-21 05:30] LABS: ALBUMIN 3.1 G/DL (3.5-5.0); ANION GAP 10 MEQ/L (5-15); BUN/CREATININE RATIO 23 RATIO (6-26); CALCIUM 8.5 MG/DL (8.4-10.2); CHLORIDE 105 MEQ/L (98-107); CO2 - CARBON DIOXIDE 25 MEQ/L (22-30); CREATININE 0.6 MG/DL (0.8-1.5); GLOMERULAR FILTRATION RATE 131; GLUCOSE 206 MG/DL (75-110); MAGNESIUM 1.9 MG/DL (1.6-2.3); PHOSPHORUS 2.8 MG/DL (2.5-4.5); SODIUM 140 MEQ/L (134-144)
[2016-07-21] MEDS: INSULIN LISPRO 100 UNIT/ML SQ PRN ×2 (06:07→12:55)
[2016-07-21] MEDS ORDERED: LEVOTHYROXINE 25 MCG TABLET PO SCH (06:30)
[2016-07-21 07:57] VITALS: BP 123/69; PULSE 68; RESP 20; TEMP 98; O2SAT 98
[2016-07-21] MEDS: GLIMEPIRIDE 1 MG TABLET PO SCH (08:25)
[2016-07-21] MEDS: PredniSONE 10 MG TABLET PO SCH (08:25)
[2016-07-21] MEDS ORDERED: CYANOCOBALAMIN (B-12) 1000mcg/ml INJECTION IM SCH (09:45)
[2016-07-21 10:20] LABS: INR 3.78 (0.76-1.04); PROTHROMBIN TIME 41.2 SEC (9.31-12.49)
--- NOTE | 2016-07-21 11:30 | NUR ---
WARFARIN CONSULT S: 76 y/o M on warfarin for extended secondary DVT ppx. Home dose is 5 mg daily. Goal INR 2-3. O: Date INR Warfarin Dose 07/20 2.72 5 mg 07/21 3.78 No warfarin today. A/P: INR therapeutic. No significant drug-drug interactions with warfarin. Warfarin 5 mg PO given at noon today. Will continue to monitor & make adjustments accordingly. Thank you for the consult. Addendum: 07/21/16 at 1132 by ALAN DEMARCO No warfarin for today.
--- NOTE | 2016-07-21 12:00 | NUR ---
Status Patient alert and oriented x3, although confused at times. Patient emotionally labile, suddenly bursting into tears in the middle of conversations. Son states he is concerned about patient's depression. VSS. On RA. Denies pain, n/v/d. Up with assist x1, gb, and walker. Patient ambulated in halls this morning with standby assist. Up to chair for meals. IV infusing as ordered. Patient uses urinal to void, no BM today. Patient's son present in room with patient.
[2016-07-21 12:05] VITALS: BP 134/71; PULSE 76; RESP 20; TEMP 98.4; O2SAT 95
[2016-07-21] MEDS ORDERED: LEVO25TA4 PO (12:23)
[2016-07-21] MEDS ORDERED: ACET-2321 PO (12:23)
[2016-07-21] MEDS ORDERED: CYAN10006 IM (12:23)
[2016-07-21] MEDS ORDERED: PRED20TA PO (12:23)
[2016-07-21] MEDS ORDERED: PRED10TA PO (12:23)
[2016-07-21] MEDS ORDERED: GLIM1TAB2 PO (12:23)
[2016-07-21] MEDS ORDERED: WARFARIN PROTOCOL MC (12:23)
--- NOTE | 2016-07-21 14:02 | DSPDOC ---
VALERIE MCCLURE V ACTING SECTION CHIEF 07/21/16 1346: General Date Date DATE: 07/21/16 TIME: 13:43 Attending Physician Georgette Martinez MD Admitting Physician Georgette Martinez MD Consulting Physician Gabi Salas MD Admitting Diagnosis LE weakness, neuropathy, dehydration Discharge Diagnosis Weakness Neuropathy Dehydration Vitamin B12 deficiency Protein calorie malnutrition Depression DM HX TIA Chronic Anticoagulation Hx DVT Laboratory Laboratory Tests Test 07/20/16 02:27 07/20/16 02:34 07/20/16 03:12 07/20/16 05:38 White Blood Count 9.2T/MM3 (4.5-11.0) Red Blood Count 4.39M/MM3 (4.50-5.90) Hemoglobin 13.3GM/DL (13.5-17.5) Hematocrit 39.0% (41-53) Mean Corpuscular Volume 88.8UM3 (80-100) Mean Corpuscular Hemoglobin 30.3UUG (26-34) Mean Corpuscular Hemoglobin Concent 34.1GM/DL (31-37) RDW Standard Deviation 39.1FL (36.9-50.2) Platelet Count 247T/MM3 (130-400) Mean Platelet Volume 9.5UM3 (9.4-12.4) Immature Granulocyte % (Auto) 0.2% (0.0-0.5) Neutrophils (%) (Auto) 71.2% (33-66) Lymphocytes (%) (Auto) 15.5% (23-45) Monocytes (%) (Auto) 10.1% (0-9.0) Eosinophils (%) (Auto) 2.7% (0-4) Basophils (%) (Auto) 0.3% (0-2) Absolute Immature Granulocyte (auto 0.02T/MM3 (0.00-0.03) Absolute Neutrophils (auto) 6.6T/MM3 (1.8-7.7) Absolute Lymphocytes (auto) 1.4T/MM3 (1-4.8) Absolute Monocytes (auto) 0.9T/MM3 (0-0.8) Absolute Eosinophils (auto) 0.3T/MM3 (0-0.5) Absolute Basophils (auto) 0.0T/MM3 (0-0.2) Prothromb Time International Ratio 2.72 (0.76-1.04) Turbidity < 20 (0-20) Sodium Level 138MEQ/L (134-144) Potassium Level 4.0MEQ/L (3.6-5) Chloride Level 101MEQ/L (98-107) Carbon Dioxide Level 24MEQ/L (22-30) Anion Gap 13MEQ/L (5-15) Blood Urea Nitrogen 16.0MG/DL (9-20) Creatinine 0.8MG/DL (0.8-1.5) Glomerular Filtration Rate Calc 94 BUN/Creatinine Ratio 20RATIO (6-26) Glucose Level 156MG/DL (75-110) Hemoglobin A1c 6.5% (6.1-7.9) Calculated Osmolality 270MOSM/KG (261-280) Calcium Level 8.8MG/DL (8.4-10.2) Phosphorus Level 2.6MG/DL (2.5-4.5) Total Bilirubin 2.20MG/DL (0.20-1.30) Icterus Index < 2 (0-7) Aspartate Amino Transf (AST/SGOT) 31U/L (17-59) Alanine Aminotransferase (ALT/SGPT) 35U/L (21-72) Alkaline Phosphatase 108U/L (38-126) Ammonia < 9UMOL/L (9-33) Total Creatine Kinase 86U/L (55-170) Total Protein 6.6G/DL (6.3-8.2) Albumin 3.3G/DL (3.5-5.0) Globulin 3.3G/DL (2.4-3.6) Albumin/Globulin Ratio 1.0RATIO (1.1-2.2) Prealbumin 8.2MG/DL (17.6-36.0) Vitamin B12 Level 194PG/ML (239-931) Thyroid Stimulating Hormone (TSH) 5.27MIU/L (0.47-4.68) Chemistry Specimen Hemolysis < 15 (0-25) Glucometer 139mg/dL (75-110) 158mg/dL (75-110) Urine Collection Type Cleancatch-midstream Urine Color Yellow (YELLOW) Urine Turbidity Clear (CLEAR) Urine pH 5.0 (5.0-8.0) Urine Specific [place] 1.020 (1.015-1.025) Urine Protein Trace (NEGATIVE) Urine Glucose (UA) Negative (NEGATIVE) Urine Ketones 2+ (NEGATIVE) Urine Blood Trace-lysed (NEGATIVE) Urine Nitrite Negative (NEGATIVE) Urine Bilirubin 1+ (NEGATIVE) Urine Urobilinogen 1.0EU/DL (NORMAL) Urine Leukocyte Esterase Negative (NEGATIVE) Urinalysis Comment Microscopic not ind. Test 07/20/16 11:03 07/20/16 17:07 07/20/16 20:49 07/21/16 04:41 Glucometer 184mg/dL (75-110) 259mg/dL (75-110) 296mg/dL (75-110) White Blood Count 8.7T/MM3 (4.5-11.0) Red Blood Count 4.10M/MM3 (4.50-5.90) Hemoglobin 12.3GM/DL (13.5-17.5) Hematocrit 36.4% (41-53) Mean Corpuscular Volume 88.8UM3 (80-100) Mean Corpuscular Hemoglobin 30.0UUG (26-34) Mean Corpuscular Hemoglobin Concent 33.8GM/DL (31-37) RDW Standard Deviation 38.4FL (36.9-50.2) Platelet Count 243T/MM3 (130-400) Mean Platelet Volume 10.3UM3 (9.4-12.4) Immature Granulocyte % (Auto) 0.1% (0.0-0.5) Neutrophils (%) (Auto) 75.9% (33-66) Lymphocytes (%) (Auto) 15.2% (23-45) Monocytes (%) (Auto) 6.5% (0-9.0) Eosinophils (%) (Auto) 2.1% (0-4) Basophils (%) (Auto) 0.2% (0-2) Absolute Immature Granulocyte (auto 0.01T/MM3 (0.00-0.03) Absolute Neutrophils (auto) 6.6T/MM3 (1.8-7.7) Absolute Lymphocytes (auto) 1.3T/MM3 (1-4.8) Absolute Monocytes (auto) 0.6T/MM3 (0-0.8) Absolute Eosinophils (auto) 0.2T/MM3 (0-0.5) Absolute Basophils (auto) 0.0T/MM3 (0-0.2) Turbidity < 20 (0-20) Sodium Level 140MEQ/L (134-144) Potassium Level 4.0MEQ/L (3.6-5) Chloride Level 105MEQ/L (98-107) Carbon Dioxide Level 25MEQ/L (22-30) Anion Gap 10MEQ/L (5-15) Blood Urea Nitrogen 14.0MG/DL (9-20) Creatinine 0.6MG/DL (0.8-1.5) Glomerular Filtration Rate Calc 131 BUN/Creatinine Ratio 23RATIO (6-26) Glucose Level 206MG/DL (75-110) Calculated Osmolality 276MOSM/KG (261-280) Calcium Level 8.5MG/DL (8.4-10.2) Phosphorus Level 2.8MG/DL (2.5-4.5) Magnesium Level 1.9MG/DL (1.6-2.3) Icterus Index < 2 (0-7) Albumin 3.1G/DL (3.5-5.0) Chemistry Specimen Hemolysis < 15 (0-25) Test 07/21/16 05:59 07/21/16 10:00 07/21/16 11:06 07/21/16 12:52 Glucometer 203mg/dL (75-110) 233mg/dL (75-110) Prothromb Time International Ratio 3.78 (0.76-1.04) History of Present Illness Jose is a 76 y/o w/ h/o DM type 2, long-standing progressive peripheral neuropathy, DVT on warfarin who presents to ED at [facility] with cc of worsening bilateral LE weakness and inability to ambulate even with assistance. Purportedly patient has had progressively worsening weakness in both of his legs over the past 4-6 weeks and tonight it was to the point that he was unable to get out of bed even w/ the assistance of his neighbor. He decided to come to the ER b/c he was concerned that he would be unable to care for himself at home. Patient states that the weakness in his legs started over 15 years ago, and has "accelerated" over the past 3-5 years to the point that he has progressively had difficulty with ambulation. Over the past month or so it has been particularly worrisome and then this AM when he felt like he had "no strength left in my legs". He says his neuropathy has been more about chronically debilitating muscle weakness and numbness but has not been painful, and he has not had any specific treatment for it and has not seen a specialist. In ER patient had a CT head which was negative. He was noted to be a little tachycardic and was given some IV fluids for his mild dehydration. Labs done were relatively unremarkable. Patient has not had any specific illness, and denies n/v/d, f/c/s, respiratory symptoms, chest pain and change in bladder or bowel function. He was recently placed on a medicine for depression, anxiety and to help him sleep which they think is Remeron, however they are not quite sure. Patient to be admitted to the Hospitalist service for further evaluation and management. Hospital Course 07/20/16- Juan Plan IV fluid bolus for rehydration with hypotension and reassess I did consult Dr. Salas regarding his rapidly progressive weakness in his legs. He is concerned about neuritis multiplex. He will evaluate the patient today. Hold Remeron for now. Place patient on telemetry regarding irregular heart rhythm. Continue Coumadin and consult pharmacy for warfarin management Start low-dose Synthroid for mildly elevated TSH B 12 ordered and pending Sliding scale insulin for now and monitor Accu-Cheks 07/21/16- Discharge Jose was hydrated with IV fluids and serial labs were trending. Patient was found to have low vitamin B12. Blood sugars were monitored. At time of discharge to IRU we will resume Metformin and Glimepiride 1 mg daily and monitor blood sugars carefully. Old records from via [employer] system did indicate the patient had 2 different TSH levels in the year 2016 that were both normal. At this time we will forego initiation of levothyroxine. Will recommend this be followed in the outpatient setting. Will replace vitamin B12 deficiency with daily injections 1 week. We will then switch to injections weekly Patient is seen in consultation by Dr. Salas for evaluation of leg weakness and gait difficulty. His evaluation concluded that patient has diabetic neuropathy with superimposed right lumbar sacral plexopathies associated with proximal right lower extremity weakness along with chronic lumbosacral spondylolysis and possible stenosis. He placed patient on prednisone. He milligrams daily for 3 days, then 20 milligrams daily for 3 days, then and milligrams daily for 3 days, then stop. We will continue with this taper on the rehabilitation unit. In-depth conversation with patient and son regarding patient's significant depression and years of suicidal ideations. Will place psychiatric consultation for further recommendations and treatment while in the IRU unit. The hospitalist services will continue to follow patient for medical management during his stay on the inpatient rehabilitation unit. Problems: Code Status Full Code Home Meds Active Scripts Cyanocobalamin (Cyanocobalamin Injection) 1,000 Mcg/Ml Vial, 1000 MCG IM DAILY for 6 Days, VIAL Prov:BROOKS MARTINEZ MD 07/21/16 Prednisone (Prednisone) 10 Mg Tablet, 10 MG PO WB for 7 Days, #7 TAB start 07/26 Prov:BROOKS MARTINEZ MD 07/21/16 Prednisone (Prednisone) 20 Mg Tablet, 20 MG PO WB for 3 Days, #3 TAB 07/23- Prov:BROOKS MARTINEZ MD 07/21/16 Prednisone (Prednisone) 10 Mg Tablet, 30 MG PO WB for 1 Day, #3 TAB Prov:BROOKS MARTINEZ MD 07/21/16 Levothyroxine Sodium (Synthroid) 25 Mcg Tablet, 25 MCG PO ACB for hypothyroid, # 30 TAB Prov:BROOKS MARTINEZ MD 07/21/16 Acetaminophen (Tylenol) 325 Mg Tablet, 650 MG PO Q5H Y for PAIN for 30 Days, # 240 TAB Prov:BROOKS MARTINEZ MD 07/21/16 [# Warfarin Protocol #] MISC No Conflict Check, 0 MC NOTE Prov:BROOKS MARTINEZ MD 07/21/16 Glimepiride (Glimepiride) 1 Mg Tablet, 1 TAB PO DAILY, #30 TAB 5 Refills Prov:BROOKS MARTINEZ MD 07/21/16 Reported Medications Mirtazapine (Mirtazapine) 15 Mg Tablet, 15 MG PO HS, TAB Take 1 tablet, by mouth, 1 time a day at bedtime. 07/20/16 Metformin HCl (Metformin HCl) 1,000 Mg Tablet, 1 TAB PO BIDWM, TAB Take one tablet, by mouth, twice daily with meals 09/08/15 Discontinued Reported Medications Warfarin Sodium (Warfarin Sodium) 2 Mg Tablet, 3 TAB PO 4XW, #90 TAB 1 Refill 07/20/16 Face to Face Encounter I met with patient on the day of dismissal and discussed follow up appointments , medications, and safety plan. Discharge Disposition Stable Copies To 1: ZAC LOPEZ MD, ROBERTA L MD 07/21/16 6996: Hospital Course I have independently evaluated and examined this patient. I reviewed the chart, the patient's history, and the ACTING SECTION CHIEF's documented findings as above. We discussed and formulated the assessment and plan as above with additions as below: Mr. Escamilla was seen in conjunction with family members at the bedside. He reports he has been able to ambulate short distances today and that his left leg seems stronger than his right. Affect was very flat and he was tangential in providing history offering excuses for why he couldn't do things rather than attempting to problem solve on ways to accomplish goals. Urine is not as dark as it was on admission after IV fluids. Breath sounds are clear and the patient was able to raise each leg off the floor independently but could not hold them up against resistance. Distal lower extremity power is better than proximal. Cardiac rhythm is regular. Respiratory viral panel was obtained prior to discharge and is negative for viral pathogens-patient vaguely described preceding URI symptoms. Vitamin B 12 level is 194, methylmalonic acid level ordered. TSH borderline high but has been 2.57 and 3.12 in the office in December and May 2015 respectively. GFR is good, metformin resumed but will decrease Amaryl as noted above in anticipation of more restricted diet while hospitalized. Will benefit from dietary education. Please note the patient is on 30 mg of prednisone a discharge with taper as otherwise outlined. Stable for transfer to rehabilitation for continued therapy. We'll recommend that Dr. Salas reassess early next week. Long history of depressive symptoms and past suicidal ideation per family report, will benefit from geriatric psychiatric involvement after settles into IRU. Problems: Home Meds Active Scripts Cyanocobalamin (Cyanocobalamin Injection) 1,000 Mcg/Ml Vial, 1000 MCG IM DAILY for 6 Days, VIAL Prov:BROOKS MARTINEZ MD 07/21/16 Prednisone (Prednisone) 10 Mg Tablet, 10 MG PO WB for 7 Days, #7 TAB start 07/26 Prov:BROOKS MARTINEZ MD 07/21/16 Prednisone (Prednisone) 20 Mg Tablet, 20 MG PO WB for 3 Days, #3 TAB 07/23-14 Prov:BROOKS MARTINEZ MD 07/21/16 Prednisone (Prednisone) 10 Mg Tablet, 30 MG PO WB for 1 Day, #3 TAB Prov:RBOOKS MARTINEZ MD 07/21/16 Levothyroxine Sodium (Synthroid) 25 Mcg Tablet, 25 MCG PO ACB for hypothyroid, # 30 TAB Prov:BROOKS MARTINEZ MD 07/21/16 Acetaminophen (Tylenol) 325 Mg Tablet, 650 MG PO Q5H Y for PAIN for 30 Days, # 240 TAB Prov:BROOKS MARTINEZ MD 07/21/16 [# Warfarin Protocol #] [facility] No Conflict Check, 0 MC NOTE Prov:BROOKS MARTINEZ MD 07/21/16 Glimepiride (Glimepiride) 1 Mg Tablet, 1 TAB PO DAILY, #30 TAB 5 Refills Prov:BROOKS MARTINEZ MD 07/21/16 Reported Medications Mirtazapine (Mirtazapine) 15 Mg Tablet, 15 MG PO HS, TAB Take 1 tablet, by mouth, 1 time a day at bedtime. 07/20/16 Metformin HCl (Metformin HCl) 1,000 Mg Tablet, 1 TAB PO BIDWM, TAB Take one tablet, by mouth, twice daily with meals 09/08/15 Discontinued Reported Medications Warfarin Sodium (Warfarin Sodium) 2 Mg Tablet, 3 TAB PO 4XW, #90 TAB 1 Refill 07/20/16 Copies To 1: ZAC LOPEZ MD, JULIE V APRN Jul 21, 2016 13:46 BROOKS MARTINEZ MD Jul 21, 2016 16:16
--- NOTE | 2016-07-21 14:15 | NUR ---
Discharge Patient discharged to IRU at this time. Telemetry d/c'd, IVL left in place per 's ordered. Report called to CESILIA Gibson. Discharge instructions sent to RN with patient along with meds and patient's belongings.
--- NOTE | 2016-07-21 15:41 | NUR ---
CM PT'S DPOA/SON, BRICE, VISITED, AND SPOKE WITH THIS WORKER. DISCUSSED DC PLAN OF TRANSFERRING TO IRU TODAY, AND HE WAS AGREEABLE. HE SAID PT'S ULTIMATE GOAL IS TO RETURN HOME.
--- NOTE | 2016-07-21 16:52 | NUR ---
High Risk Consultation r/t malnutrition Diet: CC 1999 environmental engineering intern visited with patient about increasing his daily protein intake in an effort to elevate pre-albumin lab values. environmental engineering intern suggested adding NSA mighty shake to his meals or snacks. environmental engineering intern also brought the patient a chocolate and strawberry NSA mighty shake to try, patient agreed to alternate between a chocolate and strawberry NSA mighty shake each day as snack for 10am,2pm,8pm. CHILO chawla RD available at 1405 Addendum: 07/21/16 at 1709 by STEPHANIE DIAZ Wrong Entry, correct patient/wrong admission Addendum: 07/21/16 at [address] Student charting reviewed by Electronic Maintenance Supervisor.
[2016-07-23] MEDS ORDERED: PredniSONE 20 MG TABLET PO SCH (08:00)
[2016-07-25 01:11] LABS: LDL CHOLESTEROL,CALCULATED 89.8 (66-159); RISK FACTOR 5.1 RATIO (0-5.0); VLDL CHOLESTEROL 24.2 MG/DL (0-28)
[2016-07-26] MEDS ORDERED: PredniSONE 10 MG TABLET PO SCH (08:00)
== END 2016-07-21 14:15 ==
LOC: ED 02:12 → EDHOLD 04:04 → MED 04:20 → EDHOLD 04:20 → MED 07-21 14:15 → UNDODISOB 07-21 14:15
PROVIDERS: ADMIT Internal Medicine; ATTEND Internal Medicine
DX: R53.1 Weakness (principal); E11.42 Type 2 diabetes mellitus with diabetic polyneuropathy; E86.0 Dehydration; E53.8 Deficiency of other specified B group vitamins; E46 Unspecified protein-calorie malnutrition; F32.9 Major depressive disorder, single episode, unspecified; Z86.73 Personal history of transient ischemic attack (TIA), and cerebral infarction without residual deficits; Z79.01 Long term (current) use of anticoagulants; Z86.718 Personal history of other venous thrombosis and embolism; Z79.52 Long term (current) use of systemic steroids; Z79.899 Other long term (current) drug therapy; R26.89 Other abnormalities of gait and mobility
CPT/HCPCS: 36415; 70450; 72100; 80053; 80061; 80069; 81003; 82140; 82550; 82607; 82948; 83036; 83735; 83921; 84100; 84134; 84443; 85025; 85610; 87486; 87581; 87633; 87798; 96360; 96361; 96372; 97116; 97162; 97166; 97535; 99284; A9270; G0378; G8978; G8979; G8987; G8988; G8989; J3420; J7030; J7512; 99218

== ENCOUNTER 2016-07-21 13:45 | Inpatient (IN) | payer MEDICARE, BC ==
[~2016-07-21] VITALS: Ht 190.5 cm; Wt 114.4 kg
[~2016-07-21 13:45] MED LIST changes: +ACET-2321 PO; +CYAN10006 IM; +GLIM1TAB2 PO; -GLYB2.5T5 PO; +LEVO25TA4 PO; +MIRT15TA6 PO; +PRED10TA PO; +PRED20TA PO; +WARF2TAB6 PO; -WARF5TAB76 PO; +WARFARIN PROTOCOL MC
--- NOTE | 2016-07-21 14:15 | NUR ---
ADMIT NOTE PATIENT ADMITTED TO IRU FROM MEDICAL UNIT. PATIENT AMB WITH WALKER WITH NURSE SUPERVISION FROM MEDICAL UNIT TO ROOM 168. ALERT AND ORIENTED. NO SKIN BREAKDOWN OR ABRASIONS SEEN. IV LOCK IN LH. PATIENT ORIENTED TO UNIT. MEDICATIONS RECONCILED. VITALS STABLE. CONSULTS CALLED. FAMILY AT BEDSIDE. BED LOCKED AND IN LOW POSITION. WILL CONTINUE TO MONITOR.
[2016-07-21 15:19] VITALS: Ht 190.5 cm; Wt 114.4 kg
[2016-07-21 15:20] VITALS: BP 137/80; PULSE 82; RESP 18; TEMP 97.8; O2SAT 96
--- OUTSIDE RECORDS SUMMARY | 2016-07-21 15:21 | XMS REPORT | Continuity of Care Document ---
Author Author [facility] Organization [facility] Address Unknown Phone Unavailable Support Name Relationship Address Phone MENA PATEL MD Caregiver [address] [place] [phone] Unavailable HUSSEIN GIVENS MD Caregiver [address] [place] [phone] Unavailable MENA CURRAN MD Caregiver [address] [place] [address] [employer] [place] [address] Unavailable ZAC LOPEZ MD Caregiver [address] [place] [address] [place] [address] Unavailable BRICE HENRY Next Of Kin [address], [place] [id number] Insurance Providers Guarantor Reema Henry Address [address] [place] [address] Email DENIED/NO PT PORTAL Payer Medicare Policy Number [id number] Subscriber's Name CarlReema Malone Relationship 18 Self Effective Date 05 Payer [employer] Plan 65 Policy Number [id number] Subscriber's Name Reema Henry Relationship 18 Self Group Number [id number] Advance Directives Directive Response Recorded Date/Time Ordered Resuscitation Status Full Code 07/20/16 4:12am Resuscitation Documents on File No 07/20/16 5:05am DPOA for Healthcare Only Y DPOA-BRICE HENRY 07/20/16 5:05am Living Will Yes 07/20/16 5:05am Problems Active Problems Medical Problem Onset Date Status DVT (deep venous thrombosis) Unknown Chronic Headache Unknown Acute Neuropathy, lower extremity Unknown Chronic Non-insulin dependent type 2 diabetes mellitus Unknown Chronic TIA (transient ischemic attack) Unknown Chronic Past Problems Medical Problem Onset Date Dehydration Unknown Leg weakness, bilateral Unknown Medications Current Home Medications Medication Dose Units Route Directions Days Qty Instructions Start Date # Warfarin Protocol # Misc 0 Miscell Note Instructions 07/21/16 Acetaminophen (Tylenol) 325 Mg Tablet 650 Mg Oral Every 5 Hours as needed for Pain 30 Days 240 Tablet 07/21/16 Cyanocobalamin (Cyanocobalamin Injection) 1,000 Mcg/Ml Vial 1,000 Mcg Intramusc Daily 6 Days 07/21/16 Glimepiride 1 Mg Tablet 1 Tab Oral Daily 30 Tablet 07/21/16 Levothyroxine Sodium (Synthroid) 25 Mcg Tablet 25 Mcg Oral Before Breakfast for Hypothyroid 30 Tablet 07/21/16 Metformin Hcl 1,000 Mg Tablet 1 Tab Oral Twice Daily With Meals Take one tablet, by mouth, twice daily with meals 09/08/15 Mirtazapine 15 Mg Tablet 15 Mg Oral Bedtime Take 1 tablet, by mouth , 1 time a day at bedtime. 07/20/16 Prednisone 10 Mg Tablet 30 Mg Oral Give With Breakfast 1 Days 3 Tablet 07/21/16 Prednisone 10 Mg Tablet 10 Mg Oral Give With Breakfast 7 Days 7 Tablet start 07/2607/21/16 Prednisone 20 Mg Tablet 20 Mg Oral Give With Breakfast 3 Days 3 Tablet -07/21/16 Past Home Medications Medication Directions Ordered Status Glimepiride 1 Mg Tablet, 1 Tab Oral Twice A Day 07/20/16 Discontinued Warfarin Sodium 2 Mg Tablet, 3 Tab Oral 4 Times A Week 07/20/16 Discontinued Social History Social History Problem Response Recorded Date/Time Onset Date Status Reason for Hospitalization weakness 07/21/2016 12:28pm Not Applicable Not Applicable Chewing Tobacco Status No 07/20/2016 2:37am Not Applicable Not Applicable Hx Substance Use No 07/20/2016 2:37am Not Applicable Not Applicable Hx Alcohol Use No 07/20/2016 2:37am Not Applicable Not Applicable Has the pt used tobacco in the last 12 months No 07/20/2016 5:12am Not Applicable Not Applicable Tobacco Usage none 09/08/2015 4:26am Not Applicable Not Applicable Query Response Start Date Stop Date Smoking Status Never smoker Hospital Discharge Instructions Instructions: Care Instructions: I was in the hospital because (patient own words): "I COULD NOT MOVE FURTHER FROM MY BEDROOM" Discharge Diet: diabetic Discharge Activity: Per PT/OT Follow Up Appointments: Not applicable at this time Pending Lab / Results: Will be notified Patient Instructions: To be determined at rehabilitation; follow-up testing for B-12 deficiency pending Expected Signs/Symptoms: Numbness in legs Notify Physician If: Not applicable currently During Business Hours:: Please call the physician's office at After Business Hours:: Please call [phone] and have the block splitter operator page the physician. Pain Management/Treatment: Tylenol Wound/Incision Care: Not applicable Durable Medical Equipment: Not applicable Condition at time of discharge: Fair Plan of Care Discharge Date 07/21/16 2:15pm Disposition [facility] [place] [facility] Instructions/Education Provided Weakness (ED) Prescriptions See Medication Section Care Plan and Goals See Discharge Instructions Section Functional Status Query Response Date Recorded Mobility Status Transfer w/assist July 20, 2016 5:20am Assistive Devices Cane July 20, 2016 5:20am Activity Limitations Weakness Dizziness July 20, 2016 5:20am Feeding Ability Independent July 20, 2016 5:20am Toileting Ability Assist July 20, 2016 5:20am Grooming Ability Assist July 20, 2016 5:20am Dressing Ability Assist July 20, 2016 5:20am Driving Ability Dependent July 20, 2016 5:20am Housework Ability Dependent July 20, 2016 5:20am Meal Preparation Ability Dependent July 20, 2016 5:20am Stair Climbing Ability Dependent July 20, 2016 5:20am Ability to complete ADL's impeded by Impaired Mobility Home Env. Factor July 20, 2016 5:20am Cognitive/Perceptual Impairments Impaired vision July 20, 2016 5:20am Visual Assistive Devices Glasses July 20, 2016 5:20am Allergies, Adverse Reactions, Alerts No known allergies. Immunizations Query Response on File Recorded Date/Time Hx Influenza Vaccination Y MARCH 2016 07/20/16 5:12am Hx Pneumococcal Vaccination No 07/20/16 5:12am Hx Influenza Vaccination Y MARCH 2016 07/20/16 5:12am Influenza Vaccine Hx MARCH 2016 07/20/16 1:31pm Vital Signs Acute Vital Signs Vital Response Date/Time Temperature (Fahrenheit) 98.4 deg F (96.8 - 99.1) 07/21/2016 12:05pm Temperature (Calculated Celsius) 36.02574 degrees C (36.0 - 37.3) 07/21/2016 12:05pm Pulse Rate (adult) 76 bpm (60 - 100) 07/21/2016 12:05pm Respiratory Rate 20 breaths/min (10 - 20) 07/21/2016 12:05pm O2 Sat by Pulse Oximetry 95 % (90 - 100) 07/21/2016 12:05pm Oxygen Delivery Method Room Air 07/21/2016 12:05pm Blood Pressure 134/71 mm Hg 07/21/2016 12:05pm Blood Pressure Source Automatic Cuff 07/21/2016 12:05pm Height (Feet) 6 feet 07/20/2016 4:32am Height (Inches) 3.50 inches 07/20/2016 4:32am Weight (Kilograms) 111.400 kg 07/20/2016 7:43am Body Mass Index (BMI) 30.3 07/20/2016 4:32am Results Laboratory Results Test Name Result Units Flags Reference Collection Date/Time Result Date/ Time Comments White Blood Count 8.7 T/MM3 4.5-11.0 07/21/2016 4:41am 07/21/2016 5: 21am Red Blood Count 4.10 M/MM3 L 4.50-5.90 07/21/2016 4:41am 07/21/2016 5: 21am Hemoglobin 12.3 GM/DL L 13.5-17.5 07/21/2016 4:41am 07/21/2016 5:21am Hematocrit 36.4 % L 41-53 07/21/2016 4:41am 07/21/2016 5:21am Mean Corpuscular Volume 88.8 UM3 80-100 07/21/2016 4:41am 07/21/2016 5: 21am Mean Corpuscular Hemoglobin 30.0 UUG 26-34 07/21/2016 4:41am 2016 5:21am Mean Corpuscular Hemoglobin Concent 33.8 GM/DL 31-37 07/21/2016 4:41am 07/21/2016 5:21am RDW Standard Deviation 38.4 FL 36.9-50.2 07/21/2016 4:41am 07/21/2016 5 :21am Platelet Count 243 T/MM3 130-400 07/21/2016 4:41am 07/21/2016 5:21am Mean Platelet Volume 10.3 UM3 9.4-12.4 07/21/2016 4:41am 07/21/2016 5: 21am Neutrophils (%) (Auto) 75.9 % H 33-66 07/21/2016 4:41am 07/21/2016 5: 21am Lymphocytes (%) (Auto) 15.2 % L 23-45 07/21/2016 4:41am 07/21/2016 5: 21am Monocytes (%) (Auto) 6.5 % 0-9.0 07/21/2016 4:4107/21/2016 5:21am Eosinophils (%) (Auto) 2.1 % 0-4 07/21/2016 4:4107/21/2016 5:21am Basophils (%) (Auto) 0.2 % 0-2 07/21/2016 4:4107/21/2016 5:21am Immature Granulocyte % (Auto) 0.1 % 0.0-0.5 07/21/2016 4:2016 5:21am Absolute Neutrophils (auto) 6.6 T/MM3 1.8-7.7 07/21/2016 4:2016 5:21am Absolute Lymphocytes (auto) 1.3 T/MM3 1-4.8 07/21/2016 4:2016 5:21am Absolute Monocytes (auto) 0.6 T/MM3 0-0.8 07/21/2016 4:07/21/2016 5:21am Absolute Eosinophils (auto) 0.2 T/MM3 0-0.5 07/21/2016 4:2016 5:21am Absolute Basophils (auto) 0.0 T/MM3 0-0.2 07/21/2016 4:07/21/2016 5:21am Absolute Immature Granulocyte (auto 0.01 T/MM3 0.00-0.03 07/21/2016 4: 07/21/2016 5:21am Prothromb Time International Ratio 3.78 H 0.76-1.04 07/21/2016 10:00am 07/21/2016 10:20am THERAPUTIC RANGE=2.00-3.00 FOR ANTI-THROMBOSIS THERAPUTIC RANGE=2.50-3.50 FOR IMPLANTED VALVE Icterus Index < 2 0-7 07/21/2016 4:07/21/2016 5:30am Chemistry Specimen Hemolysis < 15 0-25 07/21/2016 4:4107/21/2016 5 :30am 0-25: Specimen Exhibited No Hemolysis. Turbidity < 20 0-20 07/21/2016 4:4107/21/2016 5:30am Sodium Level 140 MEQ/L 134-144 07/21/2016 4:4107/21/2016 5:30am Potassium Level 4.0 MEQ/L 3.6-5 07/21/2016 4:41am 07/21/2016 5:30am Chloride Level 105 MEQ/L 98-107 07/21/2016 4:4107/21/2016 5:30am Carbon Dioxide Level 25 MEQ/L 22-30 07/21/2016 4:4107/21/2016 5: 30am Anion Gap 10 MEQ/L 5-15 07/21/2016 4:4107/21/2016 5:30am Blood Urea Nitrogen 14.0 MG/DL 9-07/21/2016 4:4107/21/2016 5: 30am Creatinine 0.6 MG/DL D L 0.8-1.5 07/21/2016 4:4107/21/2016 5:36am BUN/Creatinine Ratio 23 RATIO 6-26 07/21/2016 4:4107/21/2016 5:30am Glomerular Filtration Rate Calc 131 07/21/2016 4:41am 07/21/2016 5: 30am Glucose Level 206 MG/DL H 75-110 07/21/2016 4:4107/21/2016 5:30am Calculated Osmolality 276 MOSM/KG 261-280 07/21/2016 4:4107/21/2016 5:30am Calcium Level 8.5 MG/DL 8.4-10.2 07/21/2016 4:4107/21/2016 5:30am Phosphorus Level 2.8 MG/DL 2.5-4.5 07/21/2016 4:4107/21/2016 5:30am Total Bilirubin 2.20 MG/DL H 0.20-1.30 07/20/2016 2:27am 07/20/2016 2: 41am Alkaline Phosphatase 108 U/L 38-126 07/20/2016 2:2707/20/2016 2: 41am Total Protein 6.6 G/DL 6.3-8.2 07/20/2016 2:2707/20/2016 2:41am Albumin 3.1 G/DL L 3.5-5.0 07/21/2016 4:4107/21/2016 5:30am Globulin 3.3 G/DL 2.4-3.6 07/20/2016 2:07/20/2016 2:41am Albumin/Globulin Ratio 1.0 RATIO L 1.1-2.2 07/20/2016 2:07/20/2016 2:41am Aspartate Amino Transf (AST/SGOT) 31 U/L 17-59 07/20/2016 2:2016 2:41am Alanine Aminotransferase (ALT/SGPT) 35 U/L 21-72 07/20/2016 2:01/2017 2:41am Total Creatine Kinase 86 U/L 55-170 07/20/2016 2:07/20/2016 9: 49am Magnesium Level 1.9 MG/DL 1.6-2.3 07/21/2016 4:41am 07/21/2016 5:30am Ammonia < 9 UMOL/L L 9-33 07/20/2016 2:07/20/2016 2:40am Vitamin B12 Level 194 PG/ML L 239-931 07/20/2016 2:07/21/2016 3: 04am Thyroid Stimulating Hormone (TSH) 5.27 MIU/L H 0.47-4.68 07/20/2016 2: 07/20/2016 9:34am Prealbumin 8.2 MG/DL L 17.6-36.0 07/20/2016 2:07/20/2016 11:14am Hemoglobin A1c 6.5 % 6.1-7.9 07/20/2016 2:07/20/2016 9:07am <6.0 NON-DIABETIC RANGE 6.1-7.9 [facility] TARGET RANGE >8.0 ACTION SUGGESTED Urine Collection Type CLEANCATCH-MIDSTREAM 07/20/2016 3:122016 3:21am Urine Color YELLOW YELLOW 07/20/2016 3:1207/20/2016 3:21am Urine Turbidity CLEAR CLEAR 07/20/2016 3:1207/20/2016 3:21am Urine Specific [place] 1.020 1.015-1.025 07/20/2016 3:12am 2016 3:21am Urine pH 5.0 5.0-8.0 07/20/2016 3:12am 07/20/2016 3:21am Urine Leukocyte Esterase NEGATIVE NEGATIVE 07/20/2016 3:12am 2016 3:21am Urine Nitrite NEGATIVE NEGATIVE 07/20/2016 3:12am 07/20/2016 3:21am Urine Protein TRACE A NEGATIVE 07/20/2016 3:12am 07/20/2016 3:21am Urine Glucose (UA) NEGATIVE NEGATIVE 07/20/2016 3:12am 07/20/2016 3: 21am Urine Ketones 2+ A NEGATIVE 07/20/2016 3:12am 07/20/2016 3:21am Urine Urobilinogen 1.0 EU/DL NORMAL 07/20/2016 3:12am 07/20/2016 3: 21am Urine Bilirubin 1+ A NEGATIVE 07/20/2016 3:12am 07/20/2016 3:21am Urine Blood TRACE-LYSED A NEGATIVE 07/20/2016 3:12am 07/20/2016 3: 21am Urinalysis Comment MICROSCOPIC NOT IND. 07/20/2016 3:12am 2016 3:21am Glucometer 233 mg/dL H 75-110 07/21/2016 11:06am 07/21/2016 11:15am Name: REEMA HENRY Unit #: [id number] : 1940 Sex: M Admit Date: 07/20/16 Loc / Svc: MED Discharge Date: DIAGNOSTIC IMAGING REPORT Report #: [id number] [place], [place] Indication: ITS.REASON: leg weakness PROCEDURE: LUMBAR SPINE 3 VIEWS: Encounter: Initial Comparison: None Findings: Alignment of the lumbar spine is within normal limits. No acute fracture or subluxation identified. No significant disk space narrowing. Small anterior osteophytes in the upper lumbar and lower thoracic spine. Aortic vascular calcifications. Impression: No acute fracture. . Procedures No known history of procedures. Encounters Encounter Location Arrival/Admit Date Discharge/Depart Date Attending Provider Discharged Inpatient (obs) [facility] 07/20/16 4:04am 07/21/16 2: 15pm HUSSEIN GIVENS MD
--- OUTSIDE RECORDS SUMMARY | 2016-07-21 15:22 | XMS REPORT ---
Author Author [facility], [facility] - Organization Unknown Address Unknown [...]
--- OUTSIDE RECORDS SUMMARY | 2016-07-21 15:22 | XMS REPORT | Continuity of Care Document ---
Author Author [facility] Organization [facility] Address Unknown Phone Unavailable Allergies Active Description [...] Procedures Code [place] [address] REMOVAL OF SKIN LESION Jennifer Pal MD [...] Turbid NA Blood Negative NA Negative Color Munith NA Glucose, Urine Trace Negative Ketones Trace Negative Leukocyte Esterase Pos 1+ NA Negative Nitrites Negative NA Negative pH 6.0 NA 5.0-8.0 Protein Pos 1+ Negative Specific [place] 1.035 NA 1.003-1.030 UA Collection type Voided NA Urobilinogen 1.0 mg/dL <1.0 Urine Microscopic - 07/17/16 12:20 Bacteria None Seen NA Crystals Ca Ox NA Epithelial Cells 5 /HPF Microscop. Exam Perf. performed NA Urine Mucus Present NA WBC, Urine 10 /HPF 0-4 Encounters ACCT No. Visit Date/Time Discharge Status Pt. Type Provider Facility Loc./Unit Complaint [id number] 02/11/2013 10:08:00 2012 18:00:00 DIS Outpatient Kae CRESPO, Jennifer Malone [facility] on [address]
[2016-07-21] MEDS ORDERED: PRN ORDERS MC (15:30)
--- NOTE | 2016-07-21 17:08 | NUR ---
High Risk Consultation r/t malnutrition Diet: CC 1999 general intern visited with patient about increasing his daily protein intake in an effort to elevate pre-albumin lab values. general intern suggested adding NSA mighty shake to his meals or snacks. general intern also brought the patient a chocolate and strawberry NSA mighty shake to try, patient agreed to alternate between a chocolate and strawberry NSA mighty shake each day as snack for 10am,2pm,8pm. CHILO gaviriaied RD available at 1405 Addendum: 07/21/16 at [address] Student charting reviewed by Reporting Analyst.
--- NOTE | 2016-07-21 17:22 | NUR ---
NOTE NOTIFIED VALERIE MCCLURE ABOUT BS 302, SHE SAID TO GIVE SCHEDULED METFORMIN AND CONTINUE TO MONITOR.
[2016-07-21 17:30] VITALS: PULSE 82; RESP 18; O2SAT 96
[2016-07-21] MEDS: METFORMIN 1,000 MG TABLET PO SCH (17:33)
--- NOTE | 2016-07-21 18:20 | NUR ---
SHIFT SUMMARY PATIENT ALERT AND ORIENTED. PATIENT VITALS STABLE, UP WITH ONE ASSIST TO COMMODE WITH GAIT BELT. PATIENT DENIES PAIN. PATIENT EVALUATED BY PT/OT. BLOOD GLUCOSE ELEVATED, NOTIFIED VALERIE MCCLURE APN INSTRUCTED TO GIVE SCHEDULED METFORMIN AND CONTINUE TO MONITOR BLOOD GLUCOSE. NO SKIN BREAKDOWN SEEN. PATIENT CONTINENT OF BLADDER. NO BM TODAY. BED LOCKED AND IN LOW POSITION, WILL CONTINUE TO MONITOR.
[2016-07-21 19:58] VITALS: BP 149/82; PULSE 81; RESP 18; TEMP 97.9; O2SAT 97
[2016-07-21] MEDS: INSULIN LISPRO 100 UNIT/ML SQ PRN (22:00)
[2016-07-21] MEDS: MIRTAZAPINE 15 MG TABLET PO SCH (22:43)
[2016-07-21] MEDS: DOCUSATE SODIUM 100 MG CAPSULE PO SCH (22:43)
[2016-07-21 23:09] VITALS: TEMP 97.9
[2016-07-22] MEDS ORDERED: DiphenhydrAMINE 25 MG CAPSULE PO PRN (02:30)
[2016-07-22 03:04] VITALS: TEMP 98.3
--- NOTE | 2016-07-22 05:47 | NUR ---
Summary Pt has had short episodes of crying. He became emotional on topics of school reunions, old girlfriends, 01/22, and the Chris assassination. 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 Pt says he has not slept well the last week. When asked if he slept well last night, Pt stated " I must have". Pt ambulates well with GB and assistx1. Pt stated he has a fear of falling in the shower and has not taken one in a long time. Pt did wash his gwen area with a wet rag, but denied soap/ cleansing foam. Pt was happy that he was able to lift his R leg again and did several sitting leg lifts. Pt states he is interested in working with therapy and used to workout all the time. Pt in bed at this time. call light and water in reach.
[2016-07-22 06:01] LABS: BASOPHILS % (AUTO) 0.2 % (0-2); EOSINOPHILS # (AUTO) 0.3 T/MM3 (0-0.5); EOSINOPHILS % (AUTO) 2.8 % (0-4); HCT - HEMATOCRIT 35.3 % (41-53); HGB - HEMOGLOBIN 11.7 GM/DL (13.5-17.5); IMMATURE GRANULOCYTE # (AUTO) 0.01 T/MM3 (0.00-0.03); IMMATURE GRANULOCYTE % (AUTO) 0.1 % (0.0-0.5); LYMPHOCYTES # (AUTO) 1.9 T/MM3 (1-4.8); LYMPHOCYTES % (AUTO) 19.5 % (23-45); MEAN CORPUSCULAR HGB 29.4 UUG (26-34); MEAN CORPUSCULAR HGB CONC(MCHC 33.1 GM/DL (31-37); MEAN CORPUSCULAR VOLUME 88.7 UM3 (80-100); MONOCYTES # (AUTO) 0.8 T/MM3 (0-0.8); NEUTROPHILS #(AUTO)-ABSOLUTE 6.6 T/MM3 (1.8-7.7); NEUTROPHILS % (AUTO) 69.4 % (33-66); RED BLOOD COUNT 3.98 M/MM3 (4.50-5.90); WBC - WHITE BLOOD COUNT 9.5 T/MM3 (4.5-11.0)
[2016-07-22 06:03] LABS: INR 3.93 (0.76-1.04); PROTHROMBIN TIME 42.8 SEC (9.31-12.49)
[2016-07-22 06:08] LABS: ANION GAP 10 MEQ/L (5-15); BUN/CREATININE RATIO 17 RATIO (6-26); CALCIUM 8.5 MG/DL (8.4-10.2); CHLORIDE 104 MEQ/L (98-107); CO2 - CARBON DIOXIDE 28 MEQ/L (22-30); CREATININE 0.7 MG/DL (0.8-1.5); GLOMERULAR FILTRATION RATE 110; GLUCOSE 176 MG/DL (75-110); SODIUM 142 MEQ/L (134-144)
--- NOTE | 2016-07-22 07:22 | NUR ---
WARFARIN CONSULT S: 76 y/o M on warfarin for extended secondary DVT prophylaxis. Home dose is 5 mg daily. Goal INR 2-3. O: Date INR Warfarin Dose 07/20 2.72 5 mg 07/21 3.78 Held 07/22 3.93 Hold A/P: INR supratherapeutic. Will not order any warfarin for today. Will continue to monitor & make adjustments accordingly. Thank you for the consult. Delia Parada, PharmD, BCPS
[2016-07-22 07:43] VITALS: BP 122/65; PULSE 77; RESP 20; TEMP 100.9; O2SAT 95
[2016-07-22] MEDS ORDERED: PredniSONE 10 MG TABLET PO ONE (08:00)
[2016-07-22 08:13] VITALS: TEMP 99
[2016-07-22] MEDS ORDERED: CYANOCOBALAMIN (B-12) 1000mcg/ml INJECTION IM SCH (09:00)
[2016-07-22] MEDS: GLIMEPIRIDE 1 MG TABLET PO SCH (09:46)
[2016-07-22] MEDS: DOCUSATE SODIUM 100 MG CAPSULE PO SCH ×2 (09:47→21:00)
[2016-07-22] MEDS: METFORMIN 1,000 MG TABLET PO SCH ×2 (09:47→17:26)
--- NOTE | 2016-07-22 10:05 | NUR ---
NOTE NOTIFIED LOTTIE GEORGE ABOUT PATIENTS ELEVATED TEMP THIS AM, ORDERS FOR A URINE AND A CHEST XRAY WERE ENTERED.
--- NOTE | 2016-07-22 10:44 | CONSPD ---
LOTTIE PUENTE 07/22/16 1016: Consultation Info Date DATE: 07/22/16 TIME: 10:12 Date of Consultation: Jul 22, 2016 Attending Physician: Dr. Poly Dewey Reason for Consultation: Medical management, diabetes, neuropathy, depression, malnutrition HPI - Adult Date DATE: 07/22/16 TIME: 10:12 General Chief Complaint: debility, b12 deficiency, DM History of Present Illness Mr. Jose Henry is a 76 year-old male with a history of diabetes, long-standing progressive peripheral neuropathy and known DVT being treated with warfarin. He presented to [facility] on 07/20/16 for evaluation of worsening bilateral lower extremity weakness and inability to ambulate even with assistance with increasing concern that he was soon going to be unable to care for himself at home. While in the ED, he underwent a CT head which showed no acute intracranial hemorrhage or abnormalities. Labs in the ED were unremarkable. He was admitted to the hospitalist service in observation status for further evaluation of his lower extremity weakness. During his admission, he was effectively hydrated with IV fluids and serial labs trends were monitored and unremarkable. He was found to have low vitamin B12 (194). Blood sugars were monitored. TSH was obtained and found to be slightly elevated at 5.27. Review of old records from [facility] system did indicate the patient had 2 different TSH levels in the year 2015 that were both normal (2.57 and 3.12 in the office in December and May 2015 respectively) and it was recommend that this be followed in the outpatient setting. B12 supplementation was initiated with daily injections x 1 week, followed by weekly injections x 1 month followed by monthly injections. He was seen by Dr. Salas for evaluation of his leg weakness and gait difficulty. Dr. Salas's evaluation concluded that patient has diabetic neuropathy with superimposed right lumbar sacral plexopathies associated with proximal right lower extremity weakness along with chronic lumbosacral spondylolysis and possible stenosis. Lumbar x-ray was obtained and showed no acute changes or fractures. Prednisone 30mg daily for 3 days, then 20 milligrams daily for 3 days, then 10 milligrams daily for 3 days, then stop was recommended by Dr. Salas and initiated. During his admission, there were in-depth conversations with patient and his son regarding the patient's significant depression and years of suicidal ideations. Psychiatric consultation for further evaluation and treatment recommendations was recommended and currently pending. He was discharged from observation status to IRU for continue rehabilitation for strengthening and improvement in functional ability. The hospitalist service was consulted for continued medical management. Today, Mr. Escamilla was seen in while participating in therapy in the therapy room. He is beginning his exercises on the leg machine and reports that he feels stronger today and was even able to do leg lifts in bed. He answers all questions appropriately and seems to have a slightly brighter affect today then previously described. Breath sounds are clear bilaterally and cardiac exam reveals regular rate and rhythm. Abdomen is soft and nontender with active bowel sounds. He states that he has been disappointed with the food thus far but is eagerly looking forward to his hamburger for lunch. Appetite has been good at 100%. Nursing notes indicate a fever this morning at 100.8. Respiratory viral panel was obtained prior to discharge from observation status and is negative for viral pathogens. He vaguely described preceding URI symptoms prior to admission. Labs today revealed slight decrease in hemoglobin today at 11.7 (down from 13.3 at admission on 07/20/16). WVC stable at 9.5. BMP unremarkable with the exception of hyperglycemia at 176. He was seen and evaluated by dietary in light of his malnutrition with prealbumin at 8.2 and was placed on 2000 kcal carb controlled diet and encouraged to take mighty shakes at snacks. Past Medical History Past Medical History Jnf-cyykwtl-fdtcgzhuo diabetes. DVT - 2015. TIA. Severe lower extremity neuropathy. Depression. Vitamin B12 deficiency - 2017. Chronic anticoagulation. Protein calorie malnutrition - 2017. Surgical History Patient's Surgical History: Tonsillectomy/Adenoidectomy Current Medications Home Meds Active Scripts Cyanocobalamin (Cyanocobalamin Injection) 1,000 Mcg/Ml Vial, 1000 MCG IM DAILY for 6 Days, VIAL Prov:BROOKS MARTINEZ MD 07/21/16 Prednisone (Prednisone) 10 Mg Tablet, 10 MG PO WB for 7 Days, #7 TAB start 07/26 Prov:BROOKS MARTINEZ MD 07/21/16 Prednisone (Prednisone) 20 Mg Tablet, 20 MG PO WB for 3 Days, #3 TAB 07/23-14 Prov:BROOKS MARTINEZ MD 07/21/16 Prednisone (Prednisone) 10 Mg Tablet, 30 MG PO WB for 1 Day, #3 TAB Prov:BROOKS MARTINEZ MD 07/21/16 Levothyroxine Sodium (Synthroid) 25 Mcg Tablet, 25 MCG PO ACB for hypothyroid, # 30 TAB Prov:BROOKS MARTINEZ MD 07/21/16 Acetaminophen (Tylenol) 325 Mg Tablet, 650 MG PO Q5H Y for PAIN for 30 Days, # 240 TAB Prov:BROOKS MARTINEZ MD 07/21/16 [# Warfarin Protocol #] M[facility] No Conflict Check, 0 MC NOTE Prov:BROOKS MARTINEZ MD 07/21/16 Glimepiride (Glimepiride) 1 Mg Tablet, 1 TAB PO DAILY, #30 TAB 5 Refills Prov:BROOKS MARTINEZ MD 07/21/16 Reported Medications Mirtazapine (Mirtazapine) 15 Mg Tablet, 15 MG PO HS, TAB Take 1 tablet, by mouth, 1 time a day at bedtime. 07/20/16 Metformin HCl (Metformin HCl) 1,000 Mg Tablet, 1 TAB PO BIDWM, TAB Take one tablet, by mouth, twice daily with meals 09/08/15 Discontinued Reported Medications Warfarin Sodium (Warfarin Sodium) 2 Mg Tablet, 3 TAB PO 4XW, #90 TAB 1 Refill 07/20/16 Allergies: Coded Allergies: No Known Allergies (Unverified , 07/20/16) Family History Family History: Non-contributory in this setting Social History Smoking Status: Never smoker Does patient use chewing tobac: No Second Hand Exposure: No Substance Use Type: does not use Alcohol Intake: none Marital Status: Sexuality: female partner Housing: house Household Members: none Current Occupational Status: retired Advance Directives: No DPOA for Healthcare Only Review of Systems Constitutional: REPORTS: chills, fatigue, fever, weakness, DENIES: appetite decrease, dizziness, syncope Eyes General: DENIES: photophobia Vision: DENIES: double vision ENMT Hearing: DENIES: hearing loss Sinuses: NOT FOUND: congestion Nose: NOT FOUND: nosebleeds Mouth/Throat: DENIES: sore throat Cardiovascular DENIES: chest pain Rhythm/Rate: DENIES: irregular beat, palpitations, tachycardia Vascular: DENIES: pallor of an extremity Pulmonary Respiratory: cough (occasional), sputum, DENIES: dyspnea, pleuritic chest pain GI Upper Abdomen: DENIES: dysphagia, heartburn/indigestion, nausea, pain, vomiting Lower Abdomen: DENIES: blood in stool, diarrhea, pain General: DENIES: dysuria, frequency, pain Musculoskeletal General: weakness, DENIES: pain Integumentary Skin: DENIES: rash Neurological General: weakness, DENIES: headache, numbness, syncope, vertigo Psychiatric Psychiatric: depression All Other Systems All Other Systems: Reviewed (remainder of 10-point ROS Neg.) Physical Exam General General Nourishment: well nourished, well developed, adult General Body Habitus: well groomed Vital Signs Vital Signs Date Time Temp Pulse Resp B/P Pulse Ox O2 Delivery O2 Flow Rate FiO2 07/22/16 08:13 99.0 07/22/16 07:43 77 20 122/65 95 Room Air Height (Feet): 6 Height (Inches): 3.00 Eyes Brief: FOUND: PERRL, NOT FOUND: scleral icterus ENMT Brief: FOUND: mucosa moist Neck Brief: FOUND: midline, NOT FOUND: nuchal rigidity, tracheal deviation Respiratory Inspection: NOT FOUND: accessory muscle use, audible stridor, audible wheezing , tachypnea Auscultation: FOUND: normal, NOT FOUND: rales, rhonchi, wheezes Breasts: FOUND: symmetric Cardiovascular Auscultation: FOUND: S1, S2, regular Peripheral Pulses: 2+: Carotid (L), Carotid (R), Radial (L), Radial (R) Abdomen (brief) Abdominal Brief: FOUND: BS normo active x4, soft, NOT FOUND: distended, tender Musculoskeletal (brief) Musculoskeletal Brief: FOUND: extremities move equally, NOT FOUND: deformity, loss of motion Integumentary (brief) Integumentary Brief: FOUND: dry, pink, warm Comments afebrile on exam Neurologic Mental Status: FOUND: alert, oriented RN Documented GCS Eye Opening: Verbal: Motor: Total: Cranial Nerves: FOUND: forehead movement, shoulder shrug, NOT FOUND: facial asymmetry Unusual Movements: NOT FOUND: tremor Sensation: FOUND: soft touch Other Reflexes: FOUND: great toe movement Psychiatric (brief) FOUND: alert, attentive, oriented Psychiatric Attitude: FOUND: cooperative Laboratory Laboratory Tests Test 07/21/16 16:48 3/10/17 21:16 07/22/16 05:27 07/22/16 06:40 Glucometer 302mg/dL 326mg/dL 158mg/dL White Blood Count 9.5T/MM3 Red Blood Count 3.98M/MM3 Hemoglobin 11.7GM/DL Hematocrit 35.3% Mean Corpuscular Volume 88.7UM3 Mean Corpuscular Hemoglobin 29.4UUG Mean Corpuscular Hemoglobin Concent 33.1GM/DL RDW Standard Deviation 38.5FL Platelet Count 247T/MM3 Mean Platelet Volume 10.0UM3 Immature Granulocyte % (Auto) 0.1% Neutrophils (%) (Auto) 69.4% Lymphocytes (%) (Auto) 19.5% Monocytes (%) (Auto) 8.0% Eosinophils (%) (Auto) 2.8% Basophils (%) (Auto) 0.2% Absolute Immature Granulocyte (auto 0.01T/MM3 Absolute Neutrophils (auto) 6.6T/MM3 Absolute Lymphocytes (auto) 1.9T/MM3 Absolute Monocytes (auto) 0.8T/MM3 Absolute Eosinophils (auto) 0.3T/MM3 Absolute Basophils (auto) 0.0T/MM3 Prothromb Time International Ratio 3.93 Turbidity < 20 Sodium Level 142MEQ/L Potassium Level 4.0MEQ/L Chloride Level 104MEQ/L Carbon Dioxide Level 28MEQ/L Anion Gap 10MEQ/L Blood Urea Nitrogen 12.0MG/DL Creatinine 0.7MG/DL Glomerular Filtration Rate Calc 110 BUN/Creatinine Ratio 17RATIO Glucose Level 176MG/DL Calculated Osmolality 277MOSM/KG Calcium Level 8.5MG/DL Icterus Index < 2 Chemistry Specimen Hemolysis < 15 Impression/Recommendation Problems: (1) Debility Status: Acute (2) Generalized muscle weakness Status: Acute (3) Vitamin B12 deficiency Status: Acute (4) Diabetic neuropathy Status: Chronic Qualifiers: Diabetes mellitus type: type 2 (5) Non-insulin dependent type 2 diabetes mellitus Status: Chronic (6) Anemia Status: Chronic Qualifiers: Anemia type: B12 deficiency Vitamin B12 deficiency anemia type: unspecified B12 deficiency Qualified Codes: D51.9 - Vitamin B12 deficiency anemia, unspecified (7) Protein-calorie malnutrition, moderate Status: Acute Assessment & Plan: present on admission - prealbumin 8.2. (8) Depression Status: Chronic (9) Chronic anticoagulation Status: Chronic Assessment & Plan: warfarin treatment for chronic DVT. (10) TIA (transient ischemic attack) Status: Chronic Assessment & Plan: history of TIA. 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 Impression 76 year-old male admitted to IRU for continued rehabilitation, strengthening and improvement in functional ability secondary to generalized weakness and diabetic neuropathy. History of NIDDM and new found B12 deficiency with protein calorie malnutrition. Recommendation 07/22/16: Donny. ADMIT. Agree with admission to IRU for continued rehabilitation for strengthening and improvement in functional ability. Encourage participation in ;therapies and provide safe and suppportive environment. Hospitalist service consulted for medical management. Dr. Salas consulted for further evaluation and treatment recommendations of progressive diabetic neuropathy. Continue prednisone taper as directed by Dr. Salas - 30mg po x 3 days, 20mg po x 3 days then 10mg po x 3 days. Monitor blood sugars closely. 176 this AM. Continue DM medications and sliding scale insulin as indicated. History of DVT and chronic anticoagulation with warfarin. Continue warfarin with pharmacy to manage. Protein calorie malnutrition - seen and evaluated by dietary and recommended 2000 kcal carb control diet with mighty shakes at meals. Encourage oral intake. Fever noted today at 100.8. Will obtain CXR and UA in light of recent URI symptoms. Viral panel on 07/21/10 negative. UA and CXR pending. Episodes of crying and feeling emotional. Awaiting psychiatric evaluation with treatment recommendations. Encourage incentive spirometry for pulmonary toileting. Continue with B12 injections x 1 week, followed by weekly injections x 1 month, followed by monthly injections for B12 deficiency. Will monitor labs periodically during admission to monitor blood counts, electrolytes and renal function. Recommend recheck TSH as outpatient. Upon discharge, patient's care will be returned to his PCP. BROOKS MARTINEZ MD 07/22/16 1426: Past Medical History Current Medications Home Meds Active Scripts Cyanocobalamin (Cyanocobalamin Injection) 1,000 Mcg/Ml Vial, 1000 MCG IM DAILY for 6 Days, VIAL Prov:BROOKS MARTINEZ MD 07/21/16 Prednisone (Prednisone) 10 Mg Tablet, 10 MG PO WB for 7 Days, #7 TAB start 07/26 Prov:BROOKS MARTINEZ MD 07/21/16 Prednisone (Prednisone) 20 Mg Tablet, 20 MG PO WB for 3 Days, #3 TAB 07/23-14 Prov:BROOKS MARTINEZ MD 07/21/16 Prednisone (Prednisone) 10 Mg Tablet, 30 MG PO WB for 1 Day, #3 TAB Prov:BROOKS MARTINEZ MD 07/21/16 Levothyroxine Sodium (Synthroid) 25 Mcg Tablet, 25 MCG PO ACB for hypothyroid, # 30 TAB Prov:BROOKS MARTINEZ MD 07/21/16 Acetaminophen (Tylenol) 325 Mg Tablet, 650 MG PO Q5H Y for PAIN for 30 Days, # 240 TAB Prov:BROOKS MARTINEZ MD 07/21/16 [# Warfarin Protocol #] [facility] [place] No Conflict Check, 0 MC NOTE Prov:BROOKS MARTINEZ MD 07/21/16 Glimepiride (Glimepiride) 1 Mg Tablet, 1 TAB PO DAILY, #30 TAB 5 Refills Prov:BROOKS MARTINEZ MD 07/21/16 Reported Medications Mirtazapine (Mirtazapine) 15 Mg Tablet, 15 MG PO HS, TAB Take 1 tablet, by mouth, 1 time a day at bedtime. 07/20/16 Metformin HCl (Metformin HCl) 1,000 Mg Tablet, 1 TAB PO BIDWM, TAB Take one tablet, by mouth, twice daily with meals 09/08/15 Discontinued Reported Medications Warfarin Sodium (Warfarin Sodium) 2 Mg Tablet, 3 TAB PO 4XW, #90 TAB 1 Refill 07/20/16 Allergies: Coded Allergies: No Known Allergies (Unverified , 07/20/16) Impression/Recommendation Impression I have independently evaluated and examined this patient. I reviewed the chart, the patient's history, and the PA's documented findings as above. We discussed and formulated the assessment and plan as above with additions as below: Mr. Henry is known from acute hospital stay area today he reports that his weakness is better and demonstrated by raising each leg off the floor independently. He complains of nasal symptoms today and some fever overnight. He 's been coughing with sputum once but not consistently. Patient complains of difficulty sleeping which he attributes to SCDs. Patient is alert but affect remains flat. He is cooperative. Breath sounds are clear and air flow is good. No wheezing is present. Cardiac rhythm is regular and without murmur. Abdomen is soft and nontender. Executive Admin are symmetric. Sensation is intact to light touch throughout. Extraocular muscles intact. Respiratory viral panel pending, INR 3.93-warfarin on hold. Patient reports history of PE in addition to DVT. Given supra-therapeutic INR do not believe SCDs necessary and will discontinue. Patient encouraged to continue participation in rehabilitation activities and advised that psychiatry will be evaluating him due to recent stress/anxiety. Will require continuation of B-12 after initial weeks therapy. Methylmalonic acid pending. LOTTIE PUENTE Jul 22, 2016 10:16 BROOKS MARTINEZ MD Jul 22, 2016 14:26
--- NOTE | 2016-07-22 11:40 | GENHPPDOC ---
[facility] HPI 07/22/16 Time of Service: 11:00 Start Time: 11:00 Stop Time: 11:30 >50% of this visit spent in counseling/coordination care. Chief Complaint: "My feet have been bothering me" History of Present Illness HPI: 75 y/o CM with a hx of DM and peripheral neuropathy admitted for LE weakness. Family was concerned about depression and possible S/I and psychiatry was consulted. On face to face the pt is pleasant. He states he is feeling better. He reports due to his health issues and his lack of mobility over the last week or so he had been increasingly depressed and had some thoughts of wanting to harm himself. He states those thoughts have now resolved. He states he would not harm himself due to the trauma it would cause his children. STRESSORS: Pt lost his 3 years ago. He states recently he has been increasingly depressed due to his lower extremity weakness. PSYCH ROS: Pt reports some depression with low energy and motivation at times. He denies anhedonia and reports he loves fishing. He reports at times he wishes "God would take me home" but denies any S/I. He denies feelings of hopelessness. He denies anxiety, gilda, or psychosis. PAST PSYCH: Pt states he has never seen a psychiatrist in the past. He states he has been treated with Valium many years ago for some anxiety. He states he has never tried to harm himself and has never been in a psychiatric hospital. He states he has recently been started on Remeron by his PCP. SUBSTANCE USE: Denies Past Medical History Past Medical History Tat-sefzhoh-mpgiylyvi diabetes. DVT - 2016. TIA. Severe lower extremity neuropathy. Depression. Vitamin B12 deficiency - 2017. Chronic anticoagulation. Protein calorie malnutrition - 2017. Surgical History Patient's Surgical History: Tonsillectomy/Adenoidectomy Current Medications Home Meds Active Scripts Cyanocobalamin (Cyanocobalamin Injection) 1,000 Mcg/Ml Vial, 1000 MCG IM DAILY for 6 Days, VIAL Prov:BROOKS MARTINEZ MD 07/21/16 Prednisone (Prednisone) 10 Mg Tablet, 10 MG PO WB for 7 Days, #7 TAB start 07/26 Prov:BROOKS MARTINEZ MD 07/21/16 Prednisone (Prednisone) 20 Mg Tablet, 20 MG PO WB for 3 Days, #3 TAB 07/23- Prov:BROOKS MARTINEZ MD 07/21/16 Prednisone (Prednisone) 10 Mg Tablet, 30 MG PO WB for 1 Day, #3 TAB Prov:BROOKS MARTINEZ MD 07/21/16 Levothyroxine Sodium (Synthroid) 25 Mcg Tablet, 25 MCG PO ACB for hypothyroid, # 30 TAB Prov:BROOKS MARTINEZ MD 07/21/16 Acetaminophen (Tylenol) 325 Mg Tablet, 650 MG PO Q5H Y for PAIN for 30 Days, # 240 TAB Prov:BROOKS MARTINEZ MD 07/21/16 [# Warfarin Protocol #] [facility] No Conflict Check, 0 MC NOTE Prov:BOROKS MARTINEZ MD 07/21/16 Glimepiride (Glimepiride) 1 Mg Tablet, 1 TAB PO DAILY, #30 TAB 5 Refills Prov:BROOKS MARTINEZ MD 07/21/16 Reported Medications Mirtazapine (Mirtazapine) 15 Mg Tablet, 15 MG PO HS, TAB Take 1 tablet, by mouth, 1 time a day at bedtime. 07/20/16 Metformin HCl (Metformin HCl) 1,000 Mg Tablet, 1 TAB PO BIDWM, TAB Take one tablet, by mouth, twice daily with meals 09/08/15 Discontinued Reported Medications Warfarin Sodium (Warfarin Sodium) 2 Mg Tablet, 3 TAB PO 4XW, #90 TAB 1 Refill 07/20/16 Allergies: Coded Allergies: No Known Allergies (Unverified , 07/20/16) Family History Family History: Non-contributory in this setting Vaccines MARCH 2016 UNKNOWN No Social History Smoking Status: Never smoker Does patient use chewing tobac: No Second Hand Exposure: No Substance Use Type: does not use Alcohol Intake: none Marital Status: Sexuality: female partner Housing: house Household Members: none Current Occupational Status: retired Advance Directives: No DPOA for Healthcare Only Review of Systems Constitutional: REPORTS: insomnia Eyes General: DENIES: burning, dryness, erythema, exudate, foreign body sensation, itching, other, pain, photophobia, see HPI, subconjunctival bleed, watering Cardiovascular DENIES: chest pain, dyspnea on exertion, hx of rheumatic fever, murmur, orthopnea, other, paroxysmal nocturnal dysp, see HPI Pulmonary Respiratory: DENIES: cough, dyspnea, exposure to TB, hyperventilation, other, pleuritic chest pain, pneumonia hx, see HPI, sputum, tachypnea GI Upper Abdomen: DENIES: abdominal swelling, dysphagia, food intolerances, heartburn/indigestion, hematemesis, nausea, other, pain, see HPI, vomiting General: DENIES: burning, cloudy urine, discharge, dysuria, frequency, hematuria, hx of STD's, incontinence, nocturia, oliguria, other, pain, polyuria , renal stones, see HPI, urgency Musculoskeletal General: pain, weakness Neurological General: change in strength, numbness, weakness Psychiatric Psychiatric: depression All Other Systems All Other Systems: Reviewed Generations Exam Vitals Vital Signs Date Time Temp Pulse Resp B/P Pulse Ox O2 Delivery O2 Flow Rate FiO2 07/22/16 08:13 99.0 07/22/16 07:43 77 20 122/65 95 Room Air Physical examination performed by the hospitalist. Height (Feet): 6 Height (Inches): 3.00 Mental Status Exam Muscle Strength/Tone: Normal Dressing: Casual Grooming: Good Attitude: Cooperative Motor Activity: Normal Eye Contact: Good Speech: Normal Volume: Normal Rhythm: Appropriate Rhythm Sensory: Alert Orientation: Oriented X4 Mood: Depressed Affect: Congruent Rate of Thoughts: Appropriate Rate Thought Organization: Organized Associations: Intact Abstract Reasoning: Intact, able to abstract Thought Content: Normal Perception/Psychotic: Perception Normal Attention Span/Concentration: Normal Fund of Knowledge: Appropriate Memory: Grossly Intact Suicidal Ideation: None Homicidal Ideation: None Insight: Fair Judgment: Fair Impulse Control: Fair Laboratory Tests Test 07/21/16 16:48 07/21/16 21:16 07/22/16 05:27 07/22/16 06:40 Glucometer 302mg/dL 326mg/dL 158mg/dL White Blood Count 9.5T/MM3 Red Blood Count 3.98M/MM3 Hemoglobin 11.7GM/DL Hematocrit 35.3% Mean Corpuscular Volume 88.7UM3 Mean Corpuscular Hemoglobin 29.4UUG Mean Corpuscular Hemoglobin Concent 33.1GM/DL RDW Standard Deviation 38.5FL Platelet Count 247T/MM3 Mean Platelet Volume 10.0UM3 Immature Granulocyte % (Auto) 0.1% Neutrophils (%) (Auto) 69.4% Lymphocytes (%) (Auto) 19.5% Monocytes (%) (Auto) 8.0% Eosinophils (%) (Auto) 2.8% Basophils (%) (Auto) 0.2% Absolute Immature Granulocyte (auto 0.01T/MM3 Absolute Neutrophils (auto) 6.6T/MM3 Absolute Lymphocytes (auto) 1.9T/MM3 Absolute Monocytes (auto) 0.8T/MM3 Absolute Eosinophils (auto) 0.3T/MM3 Absolute Basophils (auto) 0.0T/MM3 Prothromb Time International Ratio 3.93 Turbidity < 20 Sodium Level 142MEQ/L Potassium Level 4.0MEQ/L Chloride Level 104MEQ/L Carbon Dioxide Level 28MEQ/L Anion Gap 10MEQ/L Blood Urea Nitrogen 12.0MG/DL Creatinine 0.7MG/DL Glomerular Filtration Rate Calc 110 BUN/Creatinine Ratio 17RATIO Glucose Level 176MG/DL Calculated Osmolality 277MOSM/KG Calcium Level 8.5MG/DL Icterus Index < 2 Chemistry Specimen Hemolysis < 15 Assessment and Plan (1) Diabetic neuropathy Qualifiers: (2) Vitamin B12 deficiency (3) Non-insulin dependent type 2 diabetes mellitus (4) MDD (major depressive disorder), recurrent episode, moderate Cont. current psych. meds Continue medical management. I agree with using Remeron for depression. Would continue at current dose. Pt states all guns have removed from the home. Recommend SW follow up on this with family. Recommend OP therapy on D/C. KSENIA PIKE MD Jul 22, 2016 11:36
--- NOTE | 2016-07-22 11:45 | HPPDOC ---
HPI Date DATE: 07/21/16 TIME: 19:32 General Chief Complaint: debility, b12 deficiency, DM History of Present Illness 76 yo gentleman with hx of bilat leg weakness due to polyneuropathy/ radiculopathy of legs. 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 He worked with PT an OT and was seen by neurology. Currently on Prednisone taper, which has not helped significantly. He is still unable to walk without assist and cannot manage adl without assist. On coumadin due to hx of DVT.Initial eval performed 07/21/16 at 1900. Past Medical History Past Medical History Wfs-ycsipcy-stvnnoogz diabetes. DVT - 2015. TIA. Severe lower extremity neuropathy. Depression. Vitamin B12 deficiency - 2016. Chronic anticoagulation. Protein calorie malnutrition - 2017. Surgical History Patient's Surgical History: Tonsillectomy/Adenoidectomy Current Medications Home Meds Active Scripts Cyanocobalamin (Cyanocobalamin Injection) 1,000 Mcg/Ml Vial, 1000 MCG IM DAILY for 6 Days, VIAL Prov:BROOKS MARTINEZ MD 07/21/16 Prednisone (Prednisone) 10 Mg Tablet, 10 MG PO WB for 7 Days, #7 TAB start 07/26 Prov:BROOKS MARTINEZ MD 07/21/16 Prednisone (Prednisone) 20 Mg Tablet, 20 MG PO WB for 3 Days, #3 TAB 07/23-14 Prov:BROOKS MARTINEZ MD 07/21/16 Prednisone (Prednisone) 10 Mg Tablet, 30 MG PO WB for 1 Day, #3 TAB Prov:BROOKS MARTINEZ MD 07/21/16 Levothyroxine Sodium (Synthroid) 25 Mcg Tablet, 25 MCG PO ACB for hypothyroid, # 30 TAB Prov:BROOKS MARTINEZ MD 07/21/16 Acetaminophen (Tylenol) 325 Mg Tablet, 650 MG PO Q5H Y for PAIN for 30 Days, # 240 TAB Prov:BROOKS MARTINEZ MD 07/21/16 [# [facility]in Protocol #] [facility] No Conflict Check, 0 [facility] NOTE Prov:BROOKS MARTINEZ MD 07/21/16 Glimepiride (Glimepiride) 1 Mg Tablet, 1 TAB PO DAILY, #30 TAB 5 Refills Prov:BROOKS MARTINEZ MD 07/21/16 Reported Medications Mirtazapine (Mirtazapine) 15 Mg Tablet, 15 MG PO HS, TAB Take 1 tablet, by mouth, 1 time a day at bedtime. 07/20/16 Metformin HCl (Metformin HCl) 1,000 Mg Tablet, 1 TAB PO BIDWM, TAB Take one tablet, by mouth, twice daily with meals 09/08/15 Discontinued Reported Medications Warfarin Sodium (Warfarin Sodium) 2 Mg Tablet, 3 TAB PO 4XW, #90 TAB 1 Refill 07/20/16 Allergies: Coded Allergies: No Known Allergies (Unverified , 07/20/16) Family History Family History: Non-contributory in this setting Social History Smoking Status: Never smoker Does patient use chewing tobac: No Second Hand Exposure: No Substance Use Type: does not use Alcohol Intake: none Marital Status: Sexuality: female partner Housing: house Household Members: none Current Occupational Status: retired Advance Directives: No DPOA for Healthcare Only Review of Systems Constitutional: REPORTS: fatigue, weakness, weight gain Musculoskeletal General: see HPI Neurological General: see HPI All Other Systems All Other Systems: Reviewed Physical Exam General General Nourishment: obese, adult General Body Habitus: well groomed Vital Signs Vital Signs Date Time Temp Pulse Resp B/P Pulse Ox O2 Delivery O2 Flow Rate FiO2 07/22/16 08:13 99.0 07/22/16 07:43 77 20 122/65 95 Room Air Height (Feet): 6 Height (Inches): 3.00 Eyes Brief: FOUND: EOMI, PERRL Respiratory Brief: NOT FOUND: clear all haley, equal bilaterally Cardiovascular (brief) Cardiac Brief: FOUND: pedal edema, regular rate, regular rhythm Capillary Refill: <2 sec Abdomen (brief) Abdominal Brief: FOUND: BS normo active x4, soft, NOT FOUND: tender Neurologic (brief) Neurological Brief: FOUND: cranial 2-12 intact, motor (generalized weakness (4+ ) bilat lower ext.), sensory Neurologic RN Documented GCS Eye Opening: Verbal: Motor: Total: Laboratory Laboratory Tests Test 07/21/16 16:48 07/21/16 21:16 07/22/16 05:27 07/22/16 06:40 Glucometer 302mg/dL 326mg/dL 158mg/dL White Blood Count 9.5T/MM3 Red Blood Count 3.98M/MM3 Hemoglobin 11.7GM/DL Hematocrit 35.3% Mean Corpuscular Volume 88.7UM3 Mean Corpuscular Hemoglobin 29.4UUG Mean Corpuscular Hemoglobin Concent 33.1GM/DL RDW Standard Deviation 38.5FL Platelet Count 247T/MM3 Mean Platelet Volume 10.0UM3 Immature Granulocyte % (Auto) 0.1% Neutrophils (%) (Auto) 69.4% Lymphocytes (%) (Auto) 19.5% Monocytes (%) (Auto) 8.0% Eosinophils (%) (Auto) 2.8% Basophils (%) (Auto) 0.2% Absolute Immature Granulocyte (auto 0.01T/MM3 Absolute Neutrophils (auto) 6.6T/MM3 Absolute Lymphocytes (auto) 1.9T/MM3 Absolute Monocytes (auto) 0.8T/MM3 Absolute Eosinophils (auto) 0.3T/MM3 Absolute Basophils (auto) 0.0T/MM3 Prothromb Time International Ratio 3.93 Turbidity < 20 Sodium Level 142MEQ/L Potassium Level 4.0MEQ/L Chloride Level 104MEQ/L Carbon Dioxide Level 28MEQ/L Anion Gap 10MEQ/L Blood Urea Nitrogen 12.0MG/DL Creatinine 0.7MG/DL Glomerular Filtration Rate Calc 110 BUN/Creatinine Ratio 17RATIO Glucose Level 176MG/DL Calculated Osmolality 277MOSM/KG Calcium Level 8.5MG/DL Icterus Index < 2 Chemistry Specimen Hemolysis < 15 Concerns For Adverse Events Combination of medicl issues including DM, B12 deficiency and neuropathy will require medical oversight while pt is in therapy. Assessment & Plan Problems: (1) Bilateral lumbar radiculopathy Assessment & Plan: PT nd OT will work to increase distance traveled. Neurology also following with prednisone taper. (2) Diabetic neuropathy Status: Chronic Qualifiers: Diabetes mellitus type: type 2 Assessment & Plan: Medical to manage. (3) Vitamin B12 deficiency Status: Acute Assessment & Plan: Weekly injection, medical to manage (4) Non-insulin dependent type 2 diabetes mellitus Status: Chronic Assessment & Plan: medical to manage (5) Generalized muscle weakness Status: Acute Assessment & Plan: PT and OT to develop plan of care and initiate treatment to increase strength and stamina. DVT Prophylaxis: AIDEN Benitez Code Status Full Code Interventions to Obtain Goals PT Treatment Plan: Therapeutic Exercise, Gait Training, Functional Activities , Patient/Family Education, Balance/Proprioception OT Treatment Plan: ADL's (basic care), Ther. Exercise for ADL's, UE Functional Training, Balance Training, Pt./Family Education, IADL's Hospital Course Summary Disclaimer The hospital course summary below is not to be considered part of the above Progress Note. FANG MENJIVAR MD Jul 22, 2016 11:36
--- NOTE | 2016-07-22 11:48 | IRU24PDOC ---
24 Hour Post Admission Eval Relevant Changes Relevant Changes: No I have reviewed the patient's information and concur with the finding and results of the pre-admission screen. Certification I certify the patient for rehabilitation. Patient Condition Prior Medical Conditions: (1) Bilateral lumbar radiculopathy Additional Information: PT nd OT will work to increase distance traveled. Neurology also following with prednisone taper. (2) Diabetic neuropathy Status: Chronic Additional Information: Medical to manage. (3) Vitamin B12 deficiency Status: Acute Additional Information: Weekly injection, medical to manage (4) Non-insulin dependent type 2 diabetes mellitus Status: Chronic Additional Information: medical to manage (5) Generalized muscle weakness Status: Acute Additional Information: PT and OT to develop plan of care and initiate treatment to increase strength and stamina. Current Medical Conditions: (1) Bilateral lumbar radiculopathy Additional Information: PT nd OT will work to increase distance traveled. Neurology also following with prednisone taper. (2) Diabetic neuropathy Status: Chronic Additional Information: Medical to manage. (3) Vitamin B12 deficiency Status: Acute Additional Information: Weekly injection, medical to manage (4) Non-insulin dependent type 2 diabetes mellitus Status: Chronic Additional Information: medical to manage (5) Generalized muscle weakness Status: Acute Additional Information: PT and OT to develop plan of care and initiate treatment to increase strength and stamina. Prior Functional Condition Lives With: Alone Residence Type: Private home/apartment Assistive Devices: Straight Cane Prior Functional Status: Indep. at home or school Current Functional Status Failed Alternative Therapy Tri: Arrived from acute care Patient Requirements * Patient has been determined to have significant functional limitations requiring at least two therapy disciplines. * Rehabilitation medical practitioner will provide admission approval, assessment and oversight and program coordination at least daily. * Intensive rehabilitative nursing services on site and available 24 hours a day. * The treatment plan will be developed within 24 hours of admission. * Interdisciplinary and goal oriented treatment by professional nursing, machine operator hop worker, and rehabilitation therapist. * Interdisciplinary team meeting weekly inclusive of ongoing comprehensive discharge planning. First team meeting by day . Weekly meetings to follow. * Rehab Physician is the team meeting leader. * Pharmacy and diagnostic services will be available. * Ongoing comprehensive rehab program with at least 2 disciplines and greater than or equal to 3 hours a day, 5 days a week. Limitations require: limited mobility, ADL impairment Physical Therapy Minutes: 90 Occupational Therapy Minutes: 90 Therapy The patient is to receive therapy at least 5 days a week. Current Functional Status: Using assistive device PT Treatment Plan: Therapeutic Exercise, Gait Training, Functional Activities , Patient/Family Education, Balance/Proprioception Treatment Plan Frequency: five times per week Treatment Plan Duration: two weeks Plan of Care Comment: 6x/wk for 1st wk; 5x/wk for 2nd and 3rd wks. OT Treatment Plan: ADL's (basic care), Ther. Exercise for ADL's, UE Functional Training, Balance Training, Pt./Family Education, IADL's OT Treatment Plan Frequency: five times per week OT Treatment Plan Duration: three weeks ROM Deficit: Left Lower Extremity, Right Lower Extremity ROM Comment: B/L LE WNL See OT for UEs. Muscle Weakness Location: Left Lower Extremity, Right Lower Extremity Complication/Comorbidities Patient Complication Risk: (1) Bilateral lumbar radiculopathy Comments: PT nd OT will work to increase distance traveled. Neurology also following with prednisone taper. (2) Diabetic neuropathy Status: Chronic Comments: Medical to manage. (3) Vitamin B12 deficiency Status: Acute Comments: Weekly injection, medical to manage (4) Non-insulin dependent type 2 diabetes mellitus Status: Chronic Comments: medical to manage (5) Generalized muscle weakness Status: Acute Comments: PT and OT to develop plan of care and initiate treatment to increase strength and stamina. Impact on Functional Outcomes Active neuropathy and radiculopathy will slow recovery despite PT and OT involvement Barriers to Discharge: weakness, endurance, medical stability Plan to Avoid Complications Plan to Avoid Complications The patient cannot receive this care in a lesser intensive setting such as [facility] or Outpatient Therapy due to the patient requiring the following need for medical supervision of unctrolled DM with neuropathy and Radiculopathy lumbar with weakness.. The patient requires oversight by a rehabilitation physician to manage their rehabilitation treatment plan and the multidisciplinary approach to care that can only be provided in an IRF and requires a multidisciplinary approach to care , provided by professional PTs, OTs, STs, dieticians, RTs, rehabilitation nurses and is not available in lesser levels of care. The frequency and duration for therapy, as recommended by the professional Rehabilitation therapists, meet the patient's initial rehabilitation treatment plan needs and will be further evaluated on a weekly basis for progress and/or changes needed. Problem Qualifiers (1) Diabetic neuropathy: Diabetes mellitus type: type 2 FANG MENJIVAR MD 11, 2017 11:48
[2016-07-22 12:21] LABS: BLOOD, URINE NEGATIVE (NEGATIVE); COLOR,URINE ORANGE (YELLOW); LEUKOCYTE ESTERASE ,URINE NEGATIVE (NEGATIVE); NITRITE,URINE NEGATIVE (NEGATIVE)
[2016-07-22] MEDS: INSULIN LISPRO 100 UNIT/ML SQ PRN ×2 (14:42→20:48)
[2016-07-22 15:44] VITALS: BP 114/65; PULSE 82; RESP 16; TEMP 97.5
--- NOTE | 2016-07-22 18:40 | NUR ---
SHIFT SUMMARY PATIENT ALERT AND ORIENTED. NO C/O PAIN. PATIENT UP WITH 1 WITH FWW. SLIGHT DRAGGING OF R FOOT. PATIENT HAD ELEVATED TEMP IN AM. MD CALLED. ORDERS GIVEN FOR UA AND CHEST X-RAY. AFEBRILE NOW. PATIENT BATHED WITH OT, WORKED WITH PT TODAY. SCD'S D/THANG PER MD. ATE 100% OF MEALS. BLOOD GLUCOSE ELVATED AT 1400, 278, SSI GIVEN. IS INITIATED TODAY, PATIENT INSTRUCTED ON USE AND USES. PATIENT WAS TEARY IN AM BUT IN PLEASANT, CALM AND COOPERATIVE AT END OF SHIFT. SALINE LOCK IN LH. FAMILY AT BEDSIDE.
[2016-07-22] MEDS: MIRTAZAPINE 15 MG TABLET PO SCH (20:51)
[2016-07-22 22:02] VITALS: BP 129/75; PULSE 65; RESP 18; TEMP 97.6; O2SAT 96
--- NOTE | 2016-07-23 04:41 | NUR ---
Chart Check 24 hour chart check completed
[2016-07-23 05:40] LABS: PROTHROMBIN TIME 32.7 SEC (9.31-12.49)
--- NOTE | 2016-07-23 05:43 | NUR ---
Pt has been up to the BR at times through the night. Pt has been AOx3 no episodes of crying. Pt states he has slept well and feels rested. Pt in bed sleeping at this time, call light and water in reach
--- NOTE | 2016-07-23 07:09 | NUR ---
WARFARIN CONSULT S: 76 y/o M on warfarin for extended secondary DVT prophylaxis. Home dose is 5 mg daily. Goal INR 2-3. O: Date INR Warfarin Dose 07/20 2.72 5 mg 07/21 3.78 Held 07/22 3.93 Hold 07/23 3.00 PLAN: 3 mg A/P: INR therapeutic. Will order warfarin 3 mg PO today. No significant drug-drug interactions with warfarin. Will continue to monitor & make adjustments accordingly. Thank you for the consult. Delia Parada, PharmD, BCPS
[2016-07-23] MEDS: GLIMEPIRIDE 1 MG TABLET PO SCH (08:58)
[2016-07-23] MEDS: DOCUSATE SODIUM 100 MG CAPSULE PO SCH ×2 (08:59→20:30)
[2016-07-23] MEDS: PredniSONE 20 MG TABLET PO SCH (08:59)
[2016-07-23] MEDS: METFORMIN 1,000 MG TABLET PO SCH ×3 (08:59→18:10)
[2016-07-23 09:00] VITALS: BP 125/64; PULSE 89; RESP 18; TEMP 98; O2SAT 97
[2016-07-23] MEDS: CYANOCOBALAMIN (B-12) 1000mcg/ml INJECTION IM SCH (09:00)
[2016-07-23] MEDS: INSULIN LISPRO 100 UNIT/ML SQ PRN ×3 (10:39→20:43)
--- NOTE | 2016-07-23 11:12 | DI ---
INDICATION: ITS.REASON: green sputum, fever PROCEDURE: CHEST 2-VIEWS UPRIGHT (PA \T\ LAT) Encounter: Initial COMPARISON: None FINDINGS: The lungs are clear without evidence of focal abnormal airspace opacity. Slight blunting of the right costophrenic angle could be due to pleural thickening or trace effusion. No pneumothorax. The heart size, mediastinal contours and pulmonary vascularity are within normal limits. Degenerative change in the spine with demineralization. IMPRESSION: Possible trace effusion or pleural thickening on the right. No pneumonia. .
[2016-07-23] MEDS ORDERED: WARFARIN 3 MG TABLET PO ONE (12:00)
[2016-07-23] MEDS ORDERED: INSULIN GLARGINE 100 UNIT/ML SQ ONE (16:15)
[2016-07-23 16:47] VITALS: BP 105/64; PULSE 75; RESP 18; TEMP 98.3; O2SAT 94
--- NOTE | 2016-07-23 17:44 | PNPDOC ---
Subjective Date DATE: 07/23/16 TIME: 17:30 Subjective Mr. Henry was resting in his room when seen. He denied dyspnea but reports occasional cough. He indicated that he is moving his legs better and expressed concern that he hasn't been walking in the halls today. He asked if any medications will help the sensory loss he's experienced with neuropathy. He's had no nausea or vomiting and had a bowel movement earlier today. He denies having any pain or lightheadedness. Objective Vital Signs Vital signs Vital Signs Date Time Temp Pulse Resp B/P Pulse Ox O2 Delivery O2 Flow Rate FiO2 07/23/16 16:47 98.3 75 18 105/64 94 Room Air 07/22/16 15:44 95 EXAM General-elderly male, flat affect, talkative but vague answering direct questions HEENT-conjugate gaze, conjunctiva clear Lungs-respirations nonlabored, good airflow, breath sounds clear Cardiac-regular rhythm, S1-S2 Abdomen-soft, nontender, bowel sounds present Extremities-+1-2 nonpitting edema at the ankles Neuro-flexing and extending at the knees more fluidly today and able to hold his leg out against gentle resistance with the knee extended; iliopsoas power graded 4/5 bilaterally today Height (Feet): 6 Height (Inches): 3.00 Weight (Kilograms): 116.600 Laboratory Laboratory Laboratory Tests 07/22/16 05:27 Laboratory Tests 07/22/16 05:27 INR 3.0 Radiology Chest x-ray reviewed by myself-trace right pleural effusion Assessment & Plan Problems: (1) Debility Status: Acute (2) Generalized muscle weakness Status: Acute (3) Vitamin B12 deficiency Status: Acute (4) Diabetic neuropathy Status: Chronic Qualifiers: Diabetes mellitus type: type 2 (5) Non-insulin dependent type 2 diabetes mellitus Status: Chronic (6) Anemia Status: Chronic Qualifiers: Anemia type: B12 deficiency Vitamin B12 deficiency anemia type: unspecified B12 deficiency Qualified Codes: D51.9 - Vitamin B12 deficiency anemia, unspecified (7) Protein-calorie malnutrition, moderate Status: Acute Assessment & Plan: present on admission - prealbumin 8.2. (8) Depression Status: Chronic (9) Chronic anticoagulation Status: Chronic Assessment & Plan: warfarin treatment for chronic DVT. (10) TIA (transient ischemic attack) Status: Chronic Assessment & Plan: history of TIA. 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 Continue therapies; may benefit from speech therapy for cognitive evaluation although I suspect he would be resistant. Met with Dr. Fox yesterday, full note pending but patient reports he does not believe further psychiatric care needed for depression. Blood sugars moderately elevated, single-dose Lantus ordered for today and Amaryl dose return to 2 mg daily. Suspect blood sugars will improve with increasing activity and prednisone taper. B-12 initiated several days ago for B-12 deficiency, methylmalonic acid pending. INR dropping back into daily therapeutic range, warfarin resumed at 3 mg today. Continue to monitor. Will attempt to clarify with patient or PCP when patient's DVT/PE was an indication for prolonged therapy. Plan/Intensity of Service Chest x-ray reviewed by myself. Discussed with patient's son. Laboratory data reviewed, high-risk medications in use. Code Status Full Code Hospital Course Summary Disclaimer The hospital course summary below is not to be considered part of the above Progress Note. Hospital Course Summary 07/23-Niko Improved functional capacity. Continue therapies; may benefit from speech therapy for cognitive evaluation although I suspect he would be resistant. Met with Dr. Fox yesterday, full note pending but patient reports he does not believe further psychiatric care needed. Blood sugars moderately elevated, single-dose Lantus ordered for today and Amaryl dose return to 2 mg daily. Suspect blood sugars will improve with increasing activity and prednisone taper. B-12 initiated several days ago for B-12 deficiency, methylmalonic acid pending. INR dropping back into daily therapeutic range, warfarin resumed at 3 mg today. Continue to monitor. Will attempt to clarify with patient or PCP when patient's DVT/PE was an indication for prolonged therapy. BROOKS MARTINEZ MD Jul 23, 2016 17:33
--- NOTE | 2016-07-23 18:07 | NUR ---
SHIFT SUMMARY PT HAS BEEN PLEASANT AND COOPERATIVE. HAS BEEN OU T O DINING ROOM FOR MEALS. PT AMBULATES WITH FWW AND GAIT BELT. PT HAS SAT UP IN RECLINER ALL DAY. PT USES CALL LIGHT APPROPRIATELY. PT BATHED VIA BAG BATH WITH ONLY SET UP ASSIST. PT WAS ABLE TO DRESS SELF, UPPER BODY REQUIRED MIN ASSIST TO STRAIGHTEN SHIRT, AND LOWER BODY WAS ABLE TO DO ON OWN USING WALKER AND/OR GRAB BAR IN BATHROOM FOR BALANCE. PT'S SON HAS BEEN HERE MOST OF AFTERNOON. PT NOW RESTING IN ROOM.
[2016-07-23 20:30] VITALS: PULSE 70; RESP 18
[2016-07-23] MEDS: MIRTAZAPINE 15 MG TABLET PO SCH (20:30)
--- NOTE | 2016-07-23 22:20 | PDIRUOPC ---
Overall Plan of Care Date DATE: 07/23/16 TIME: 22:17 Relevant Changes Relevant Changes: No I have reviewed the patient's information and concur with the finding and results of the pre-admission screen. Certification I certify the patient for rehabilitation. Patient Impairments Prior Medical Conditions: (1) Bilateral lumbar radiculopathy Additional Information: PT nd OT will work to increase distance traveled. Neurology also following with prednisone taper. (2) Diabetic neuropathy Status: Chronic Additional Information: Medical to manage. (3) Vitamin B12 deficiency Status: Acute Additional Information: Weekly injection, medical to manage (4) Non-insulin dependent type 2 diabetes mellitus Status: Chronic Additional Information: medical to manage (5) Generalized muscle weakness Status: Acute Additional Information: PT and OT to develop plan of care and initiate treatment to increase strength and stamina. Current Medical Conditions: (1) Bilateral lumbar radiculopathy Additional Information: PT nd OT will work to increase distance traveled. Neurology also following with prednisone taper. (2) Diabetic neuropathy Status: Chronic Additional Information: Medical to manage. (3) Vitamin B12 deficiency Status: Acute Additional Information: Weekly injection, medical to manage (4) Non-insulin dependent type 2 diabetes mellitus Status: Chronic Additional Information: medical to manage (5) Generalized muscle weakness Status: Acute Additional Information: PT and OT to develop plan of care and initiate treatment to increase strength and stamina. Medical Prognosis Fair IRF Tx That Should Address Dx: Dx Requiring Medical FU: Vital Signs Vital Signs Date Time Temp Pulse Resp B/P Pulse Ox O2 Delivery O2 Flow Rate FiO2 07/23/16 16:47 98.3 75 18 105/64 94 Room Air 07/22/16 15:44 95 Laboratory Laboratory Tests Test 07/22/16 05:27 07/22/16 06:40 07/22/16 11:32 07/22/16 11:40 White Blood Count 9.5T/MM3 Red Blood Count 3.98M/MM3 Hemoglobin 11.7GM/DL Hematocrit 35.3% Mean Corpuscular Volume 88.7UM3 Mean Corpuscular Hemoglobin 29.4UUG Mean Corpuscular Hemoglobin Concent 33.1GM/DL RDW Standard Deviation 38.5FL Platelet Count 247T/MM3 Mean Platelet Volume 10.0UM3 Immature Granulocyte % (Auto) 0.1% Neutrophils (%) (Auto) 69.4% Lymphocytes (%) (Auto) 19.5% Monocytes (%) (Auto) 8.0% Eosinophils (%) (Auto) 2.8% Basophils (%) (Auto) 0.2% Absolute Immature Granulocyte (auto 0.01T/MM3 Absolute Neutrophils (auto) 6.6T/MM3 Absolute Lymphocytes (auto) 1.9T/MM3 Absolute Monocytes (auto) 0.8T/MM3 Absolute Eosinophils (auto) 0.3T/MM3 Absolute Basophils (auto) 0.0T/MM3 Prothromb Time International Ratio 3.93 Turbidity < 20 Sodium Level 142MEQ/L Potassium Level 4.0MEQ/L Chloride Level 104MEQ/L Carbon Dioxide Level 28MEQ/L Anion Gap 10MEQ/L Blood Urea Nitrogen 12.0MG/DL Creatinine 0.7MG/DL Glomerular Filtration Rate Calc 110 BUN/Creatinine Ratio 17RATIO Glucose Level 176MG/DL Calculated Osmolality 277MOSM/KG Calcium Level 8.5MG/DL Icterus Index < 2 Chemistry Specimen Hemolysis < 15 Glucometer 158mg/dL 188mg/dL Urine Collection Type Cleancatch-midstream Urine Color Harding Urine Turbidity Clear Urine pH 5.5 Urine Specific Hanna 1.025 Urine Protein Trace Urine Glucose (UA) Negative Urine Ketones Trace Urine Blood Negative Urine Nitrite Negative Urine Bilirubin Negative Urine Urobilinogen 1.0EU/DL Urine Leukocyte Esterase Negative Urinalysis Comment Microscopic not ind. Test 07/22/16 14:32 07/22/16 20:14 07/23/16 04:31 07/23/16 05:36 Glucometer 278mg/dL 288mg/dL 170mg/dL Prothromb Time International Ratio 3.00 Test 07/23/16 10:20 07/23/16 14:06 07/23/16 20:37 Glucometer 282mg/dL 273mg/dL 313mg/dL Anticipated Interventions The patient requires inpatient IRF care for PT, OT, and/or ST for residuals remaining from Diabetic neuropathy and lumbar radiculopathy resulting in muscular weakness and strength deficits. ROM Deficit: Left Lower Extremity, Right Lower Extremity Strength Deficits: Left Lower Extremity, Right Lower Extremity FIM Scores Ambulation Distance: 283 Ambulation Ability: 4 Minimal Assistance Ambulation Assistance Needed: 1 Person Walk FIM Score Reason: Pt demo 1 LOB during gait training requiring min (A) to correct. Stairs: 2 Maximum Assistance Stair Assistance Needed: 1 Person Number of Stairs: 4 Reason for Stair FIM: Pt requires SBA to demo stair amb but is limited to < 12 steps. Eating Ability-FIM: 7+ Complete Ransom Bathing Ability: 3 Moderate Assistance Upper Body Dressing Ability: 4 Minimal Assistance Lower Body Dressing Ability: 6 Modified Ransom Lower Body Dressing Assistance: 1 Person Toileting Ability: 6 Modified Ransom Toileting Assistance Needed: 1 Person Bed Transfer Ability: 5 Supervision/Setup Bed Transfer Assistance Needed: 1 Person Chair Transfer Ability: 4 Minimal Assistance Chair Transfer Assistance Need: 1 Person Overall Wheelchair Transfer Ab: 3 Moderate Assistance Overall Toilet / Commode Trans: 4 Minimal Assistance Toilet / Commode Transfer Assi: 1 Person Comprehension Ability: 6 Modified Ransom Social Interaction: 7+ Complete Ransom Problem Solvin Modified Ransom Expression Ability: 7+ Complete Ransom Memory: 6 Modified Ransom Current Functional Status Failed Alternative Therapy: Arrived from acute care Patient Requires * Patient has been determined to have significant functional limitations requiring at least two therapy disciplines. * Rehabilitation medical practitioner will provide admission approval, assessment and oversight and program coordination at least daily. * Intensive rehabilitative nursing services on site and available 24 hours a day. * The treatment plan will be developed within 24 hours of admission. * Interdisciplinary and goal oriented treatment by professional nursing, social worker health services, and rehabilitation therapist. * Interdisciplinary team meeting weekly inclusive of ongoing comprehensive discharge planning. First team meeting by . Weekly meetings to follow. * Rehab Physician is the team meeting leader. * Pharmacy and diagnostic services will be available. * Ongoing comprehensive rehab program with at least 2 disciplines and greater than or equal to 3 hours a day, 5 days a week. Limitations require: limited mobility, ADL impairment Physical Therapy Minutes: 90 Occupational Therapy Minutes: 90 Therapy The patient is to receive therapy at least 5 days a week. PT Treatment Plan: Therapeutic Exercise, Gait Training, Functional Activities , Patient/Family Education, Balance/Proprioception Treatment Plan Frequency: five times per week Treatment Plan Duration: two weeks Plan of Care Comment: 6x/wk for 1st wk; 5x/wk for 2nd and 3rd wks. OT Treatment Plan: ADL's (basic care), Ther. Exercise for ADL's, UE Functional Training, Balance Training, Pt./Family Education, IADL's OT Treatment Plan Frequency: five times per week OT Treatment Plan Duration: three weeks Anticapted LOS/Outcomes Anticipated Functional Outcome Improvement in strength and management of adl's Anticipated DC Destination: Home Health Service Home Safety Plan The patient will be provided with the development of a Home Safety Plan for return to a home or home-like environment and to ensure safety post discharge. Complicating Conditions Complications since IRF admit: (1) Bilateral lumbar radiculopathy Comments: PT nd OT will work to increase distance traveled. Neurology also following with prednisone taper. (2) Diabetic neuropathy Status: Chronic Comments: Medical to manage. (3) Vitamin B12 deficiency Status: Acute Comments: Weekly injection, medical to manage (4) Non-insulin dependent type 2 diabetes mellitus Status: Chronic Comments: medical to manage (5) Generalized muscle weakness Status: Acute Comments: PT and OT to develop plan of care and initiate treatment to increase strength and stamina. Other Contributing Factors: Plan to Avoid Complications Barriers to Attaining Goals: weakness, endurance Plan to Avoid Complications The patient cannot receive this care in a lesser intensive setting such as Nursing Home or Outpatient Therapy due to the patient requiring the following Diabetic management, . The patient requires oversight by a rehabilitation physician to manage their rehabilitation treatment plan and the multidisciplinary approach to care that can only be provided in an IRF and requires a multidisciplinary approach to care , provided by professional PTs, OTs, STs, dieticians, RTs, rehabilitation nurses and is not available in lesser levels of care. The frequency and duration for therapy, as recommended by the professional Rehabilitation therapists, meet the patient's initial rehabilitation treatment plan needs and will be further evaluated on a weekly basis for progress and/or changes needed. Problem Qualifiers (1) Diabetic neuropathy: Diabetes mellitus type: type 2 FANG MENJIVAR MD Jul 23, 2016 22:20
--- NOTE | 2016-07-23 23:00 | NUR ---
Assessment: Jose is a pleasant and cooperative pt. I spent some time visiting with Jose about his life circumstances regarding the loss of his and how that has effected him. No crying noted. He visited easily with staff and was still able to manage his ADL's.His IV lock flushed easily.He has denied pain.He has been continent of bladder and bowel.He is able to manage his hygiene by himself . Min assist of one staff with clothes.Assist of one staff fww and gaitbelt for all transfers and ambulation. His gait is unsteady at times.When in bed his siderails up x two. His call light is with in reach . Bedalarms intact.Appropriate use of call light.
[2016-07-23 23:12] VITALS: BP 120/71; PULSE 70; RESP 18; TEMP 98.8; O2SAT 96
--- NOTE | 2016-07-23 23:56 | NUR ---
Chart Check 24 hour chart check completed
[2016-07-24 05:39] LABS: BASOPHILS % (AUTO) 0.2 % (0-2); EOSINOPHILS # (AUTO) 0.2 T/MM3 (0-0.5); EOSINOPHILS % (AUTO) 2.4 % (0-4); HCT - HEMATOCRIT 36.9 % (41-53); HGB - HEMOGLOBIN 12.3 GM/DL (13.5-17.5); IMMATURE GRANULOCYTE # (AUTO) 0.02 T/MM3 (0.00-0.03); IMMATURE GRANULOCYTE % (AUTO) 0.2 % (0.0-0.5); LYMPHOCYTES # (AUTO) 1.9 T/MM3 (1-4.8); LYMPHOCYTES % (AUTO) 19.6 % (23-45); MEAN CORPUSCULAR HGB 29.6 UUG (26-34); MEAN CORPUSCULAR HGB CONC(MCHC 33.3 GM/DL (31-37); MEAN CORPUSCULAR VOLUME 88.9 UM3 (80-100); MONOCYTES # (AUTO) 0.8 T/MM3 (0-0.8); MONOCYTES % (AUTO) 8.3 % (0-9.0); NEUTROPHILS #(AUTO)-ABSOLUTE 6.8 T/MM3 (1.8-7.7); NEUTROPHILS % (AUTO) 69.3 % (33-66); RED BLOOD COUNT 4.15 M/MM3 (4.50-5.90); WBC - WHITE BLOOD COUNT 9.8 T/MM3 (4.5-11.0)
[2016-07-24 05:42] LABS: INR 2.68 (0.76-1.04); PROTHROMBIN TIME 29.2 SEC (9.31-12.49)
[2016-07-24 05:52] LABS: ANION GAP 9 MEQ/L (5-15); BUN/CREATININE RATIO 20 RATIO (6-26); CALCIUM 8.5 MG/DL (8.4-10.2); CHLORIDE 102 MEQ/L (98-107); CO2 - CARBON DIOXIDE 30 MEQ/L (22-30); CREATININE 0.7 MG/DL (0.8-1.5); GLOMERULAR FILTRATION RATE 110; GLUCOSE 164 MG/DL (75-110); POTASSIUM 3.8 MEQ/L (3.6-5); SODIUM 141 MEQ/L (134-144)
--- NOTE | 2016-07-24 06:49 | NUR ---
Summary Jose has used the urinal while standing at bedside. He has voided small amounts all through the night.He has been pleasant .
[2016-07-24 08:00] VITALS: BP 114/63; PULSE 85; RESP 24; TEMP 98.5; O2SAT 98
[2016-07-24] MEDS: GLIMEPIRIDE 2 MG TABLET PO SCH (09:11)
[2016-07-24] MEDS: METFORMIN 1,000 MG TABLET PO SCH ×2 (09:11→17:19)
[2016-07-24] MEDS: PredniSONE 20 MG TABLET PO SCH (09:12)
[2016-07-24] MEDS: DOCUSATE SODIUM 100 MG CAPSULE PO SCH ×2 (09:12→20:13)
[2016-07-24] MEDS: CYANOCOBALAMIN (B-12) 1000mcg/ml INJECTION IM SCH (09:13)
--- NOTE | 2016-07-24 09:48 | NUR ---
Glycemic control A1c: 6.5, Diet: [id number], Oral DM meds: Glimepiride; Metformin; steroid-induced hyperglycemia; SS insulin ordered 07/21. M/E: weight (gain undesirable with peripheral neuropathy); intake
--- NOTE | 2016-07-24 09:50 | NUR ---
CALLI CHUNG IS 10 Addendum: 07/24/16 at 0951 by MERLENE KELLY Amended: Links added.
--- NOTE | 2016-07-24 10:17 | NUR ---
COUMADIN CONSULT (Recurring): Today's INR = 2.68. Will give Warfarin 3mg today. Will continue to monitor & make adjustments accordingly. Thank you.
[2016-07-24] MEDS ORDERED: WARFARIN 3 MG TABLET PO SCH (12:00)
[2016-07-24] MEDS: INSULIN LISPRO 100 UNIT/ML SQ PRN ×2 (14:26→21:40)
[2016-07-24 16:00] VITALS: BP 124/69; PULSE 72; RESP 12; TEMP 98.1; O2SAT 97
--- NOTE | 2016-07-24 17:29 | NUR ---
CM SPOKE WITH PT, INTRODUCED SELF, EXPLAINED ROLE, PROVIDED CONTACT INFO. PT SAID HE LIVES HERE IN [facility]. HE HAS FAMILY (SON,BRICE) IN [place]. HE SAID HIS DC PLAN IS TO RETURN HOME ALONE. HE SAID HIS DAUGHTER IN LAW HAD BEEN HELPING HIM BY TAKING HIM TO THE STORE AND HE WOULD GO SHOPPING FOR GROCERIES. HE SAID THE REST OF THE TASKS (I.E. CLEANING, ETC) HE WAS INDEPENDENT WITH. HE HAD NO QUESTIONS/NEEDS FOR THIS WORKER. HE GAVE PERMISSION FOR THIS WORKER TO CONTACT SON FOR ON-GOING DC PLANNING. Addendum: 07/24/16 at 1731 by MERLENE KELLY Amended: Links added.
--- NOTE | 2016-07-24 18:35 | NUR ---
Shift summary Patient alert and oriented x3. Ambulating with FWW, gait belt, min assist. Transfers with min assist, gait belt, FWW. Patient IVL to left forearm, flushes well. Patient repeatedly states he is weak and tired. Is worried he will be going to a assisted and won't be able to do things for himself. Encouraged him to work with therapy and work on his goal to go home. Ambulated to all meals this shift. Wears glasses. Patient states he misses his even tho she has been gone for 3 years. He works well with PT and OT.
[2016-07-24] MEDS: MIRTAZAPINE 15 MG TABLET PO SCH (20:14)
--- NOTE | 2016-07-24 21:42 | PNPDOC ---
IRU Subjective Date DATE: 07/24/16 TIME: 21:31 Subjective Pt up and working with PT and OT today. Pain managed and he felt better being more mobile today. IRU Objective Vital Signs Vital signs Vital Signs Date Time Temp Pulse Resp B/P Pulse Ox O2 Delivery O2 Flow Rate FiO2 07/24/16 16:00 98.1 72 12 124/69 97 Room Air 07/22/16 15:44 95 Height (Feet): 6 Height (Inches): 3.00 Weight (Kilograms): 116.600 Laboratory Laboratory Laboratory Tests Test 07/23/16 04:31 07/23/16 05:36 07/23/16 10:20 07/23/16 14:06 Prothromb Time International Ratio 3.00 Glucometer 170mg/dL 282mg/dL 273mg/dL Test 07/23/16 20:37 07/24/16 04:58 07/24/16 05:44 07/24/16 10:38 Glucometer 313mg/dL 167mg/dL 177mg/dL White Blood Count 9.8T/MM3 Red Blood Count 4.15M/MM3 Hemoglobin 12.3GM/DL Hematocrit 36.9% Mean Corpuscular Volume 88.9UM3 Mean Corpuscular Hemoglobin 29.6UUG Mean Corpuscular Hemoglobin Concent 33.3GM/DL RDW Standard Deviation 38.5FL Platelet Count 286T/MM3 Mean Platelet Volume 10.0UM3 Immature Granulocyte % (Auto) 0.2% Neutrophils (%) (Auto) 69.3% Lymphocytes (%) (Auto) 19.6% Monocytes (%) (Auto) 8.3% Eosinophils (%) (Auto) 2.4% Basophils (%) (Auto) 0.2% Absolute Immature Granulocyte (auto 0.02T/MM3 Absolute Neutrophils (auto) 6.8T/MM3 Absolute Lymphocytes (auto) 1.9T/MM3 Absolute Monocytes (auto) 0.8T/MM3 Absolute Eosinophils (auto) 0.2T/MM3 Absolute Basophils (auto) 0.0T/MM3 Prothromb Time International Ratio 2.68 Turbidity < 20 Sodium Level 141MEQ/L Potassium Level 3.8MEQ/L Chloride Level 102MEQ/L Carbon Dioxide Level 30MEQ/L Anion Gap 9MEQ/L Blood Urea Nitrogen 14.0MG/DL Creatinine 0.7MG/DL Glomerular Filtration Rate Calc 110 BUN/Creatinine Ratio 20RATIO Glucose Level 164MG/DL Calculated Osmolality 276MOSM/KG Calcium Level 8.5MG/DL Icterus Index < 2 Chemistry Specimen Hemolysis < 15 Test 07/24/16 14:07 Glucometer 294mg/dL Assessment & Plan Problems: (1) Bilateral lumbar radiculopathy Assessment & Plan: Pain improved with mobility and therapy support. Cont with PT and OT. Team meeting sunday. (2) Diabetic neuropathy Status: Chronic Qualifiers: Diabetes mellitus type: type 2 Assessment & Plan: This pain does not respond to movement like the radiculopathy does. Cont to work for prison pain management. (3) Vitamin B12 deficiency Status: Acute Assessment & Plan: managed by medical. (4) Non-insulin dependent type 2 diabetes mellitus Status: Chronic Assessment & Plan: managed by medical. (5) Generalized muscle weakness Status: Acute Assessment & Plan: Cont with PT and OT. Assessment Improved functional capacity. Continue therapies; may benefit from speech therapy for cognitive evaluation although I suspect he would be resistant. Met with Dr. Fox yesterday, full note pending but patient reports he does not believe further psychiatric care needed for depression. Blood sugars moderately elevated, single-dose Lantus ordered for today and Amaryl dose return to 2 mg daily. Suspect blood sugars will improve with increasing activity and prednisone taper. B-12 initiated several days ago for B-12 deficiency, methylmalonic acid pending. INR dropping back into daily therapeutic range, warfarin resumed at 3 mg today. Continue to monitor. Will attempt to clarify with patient or PCP when patient's DVT/PE was an indication for prolonged therapy. Code Status Full Code Interventions to Obtain Goals PT Treatment Plan: Therapeutic Exercise, Gait Training, Functional Activities , Patient/Family Education, Balance/Proprioception OT Treatment Plan: ADL's (basic care), Ther. Exercise for ADL's, UE Functional Training, Balance Training, Pt./Family Education, IADL's Hospital Course Summary Disclaimer The hospital course summary below is not to be considered part of the above Progress Note. Hospital Course Summary 07/23-Niko Improved functional capacity. Continue therapies; may benefit from speech therapy for cognitive evaluation although I suspect he would be resistant. Met with Dr. Fox yesterday, full note pending but patient reports he does not believe further psychiatric care needed. Blood sugars moderately elevated, single-dose Lantus ordered for today and Amaryl dose return to 2 mg daily. Suspect blood sugars will improve with increasing activity and prednisone taper. B-12 initiated several days ago for B-12 deficiency, methylmalonic acid pending. INR dropping back into daily therapeutic range, warfarin resumed at 3 mg today. Continue to monitor. Will attempt to clarify with patient or PCP when patient's DVT/PE was an indication for prolonged therapy. FANG MENJIVAR MD Jul 24, 2016 21:39
[2016-07-24 22:49] VITALS: BP 114/64; PULSE 74; RESP 16; TEMP 97.5; O2SAT 95
--- NOTE | 2016-07-24 23:02 | NUR ---
Chart Check 24 hour chart check completed
[2016-07-25 05:12] LABS: INR 2.61 (0.76-1.04); PROTHROMBIN TIME 28.5 SEC (9.31-12.49)
--- NOTE | 2016-07-25 05:56 | NUR ---
Summary Pt requested to walk before going to bed. Ambulated with FWW, GB, 1 assist from room 168, to dining area, to "main street" nix, to the medical doors, and back again. Pt encouraged to walk heel to toe and maintain lift of right foot. Pt denied pain through the night. Pt's IV was DC'd due to leaking when flushed. Pt was up to the BR several times in the night to void. Pt said he had some "good sleep" last night and remembered dreaming. Pt is in bed sleeping at this time call light and water in reach.
[2016-07-25 08:00] VITALS: BP_SYST 128; BP_SYST 152; BP_DIAS 71; BP_DIAS 81; PULSE 52; PULSE 86; RESP 18; RESP 20; TEMP 97.5; TEMP 99; O2SAT 95; O2SAT 98
[2016-07-25] MEDS: GLIMEPIRIDE 2 MG TABLET PO SCH (08:53)
[2016-07-25] MEDS: DOCUSATE SODIUM 100 MG CAPSULE PO SCH ×2 (08:54→20:41)
[2016-07-25] MEDS: PredniSONE 20 MG TABLET PO SCH (08:54)
[2016-07-25] MEDS: CYANOCOBALAMIN (B-12) 1000mcg/ml INJECTION IM SCH (08:54)
[2016-07-25] MEDS: METFORMIN 1,000 MG TABLET PO SCH ×2 (08:54→17:51)
--- NOTE | 2016-07-25 09:23 | NUR ---
COUMADIN CONSULT (Recurring): Today's INR = 2.61. Will give Warfarin 3 mg today. Will continue to monitor & make adjustments accordingly. Thank you.
[2016-07-25] MEDS: INSULIN LISPRO 100 UNIT/ML SQ PRN ×3 (10:28→20:52)
[2016-07-25] MEDS ORDERED: WARFARIN 3 MG TABLET PO SCH (12:00)
--- NOTE | 2016-07-25 14:34 | NUR ---
Status Patient ambulating with FWW, gait belt, min assist. 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 Transfers with gait belt, min assist. Able to ambulate to meals. Patient states he is tired today. 2 units of insulin sliding scale given at 10 for BGM of 236 and again at 1400 for BGM of 227. Working with PT and OT this shift. Wears glasses, feeds self.
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
--- NOTE | 2016-07-25 14:46 | NUR ---
CM ADVANCED DIRECTIVE CONSULT SON STATED HE THINKS HE HAS POA FOR THE PT, AND HE WILL BRING IN THIS PAPERWORK. IF NOT, HE WILL LET THIS WORKER KNOW, AND PT CAN COMPLETE ANOTHER IF PT WANTS TO. Addendum: 07/25/16 at 1447 by MERLENE KELLY Amended: Links added.
[2016-07-25 16:00] VITALS: BP 106/64; PULSE 73; RESP 14; TEMP 98.6; O2SAT 96
--- NOTE | 2016-07-25 18:31 | PNPDOC ---
Subjective Date DATE: 07/25/16 TIME: 18:17 Subjective Mr. Henry was seen late in the afternoon. 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 He went on to describe his legs feel like lead weight. He denied dyspnea, focal weakness, or nausea. His appetite is good he doesn't think he got enough to eat at either breakfast or lunch but isn't sure which. In general restricted meals have not been a problem however. Objective Vital Signs Vital signs Vital Signs Date Time Temp Pulse Resp B/P Pulse Ox O2 Delivery O2 Flow Rate FiO2 07/25/16 16:00 98.6 73 14 106/64 96 Room Air 07/22/16 15:44 95 Gen-NAD, drowsy but responds to questions appropriately HEENT-conjunctiva clear, sclera anicteric, symmetric facial features Lungs-respirations nonlabored, good airflow, breath sounds are clear bilaterally Cardiac-regular rate, S1-S2 Abdomen-soft, nontender, bowel sounds present Extremities-+2 edema bilaterally Neuro--decreased sensation bilateral lower extremities Psych-flat affect Height (Feet): 6 Height (Inches): 3.00 Weight (Kilograms): 116.600 Laboratory Laboratory Laboratory Tests 07/24/16 04:58 Laboratory Tests 07/24/16 04:58 INR 2.61 Assessment & Plan Problems: (1) Debility Status: Acute (2) Generalized muscle weakness Status: Acute (3) Vitamin B12 deficiency Status: Acute Assessment & Plan: B 12 injections initiated prior to transfer to rehabilitation; methylmalonic acid pending as of 07/25 (4) Diabetic neuropathy Status: Chronic Qualifiers: Diabetes mellitus type: type 2 (5) Non-insulin dependent type 2 diabetes mellitus Status: Chronic Assessment & Plan: A1c 6.5 on 07/20/16 (6) Anemia Status: Chronic Qualifiers: Anemia type: B12 deficiency Vitamin B12 deficiency anemia type: unspecified B12 deficiency Qualified Codes: D51.9 - Vitamin B12 deficiency anemia, unspecified (7) Protein-calorie malnutrition, moderate Status: Acute Assessment & Plan: present on admission - prealbumin 8.2. (8) Depression Status: Chronic Assessment & Plan: Mirtazapine initiated approximately 07/15/16 per PCP (9) Chronic anticoagulation Status: Chronic Assessment & Plan: warfarin treatment for chronic DVT. (10) TIA (transient ischemic attack) Status: Chronic Assessment & Plan: history of TIA. 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 Blood sugars running high on home regimen; prednisone due to be completed in 2 days. Remains on daily B-12 injections through 07/29, then weekly for 1 month, then monthly. Methylmalonic acid pending from acute hospital stay. Very flat affect, continue mirtazapine at current dose. Would benefit from outpatient therapy if patient agreeable. INR therapeutic on 3 mg warfarin daily. I spoke with the patient and his son regarding past DVT/PE-only one known event in 2008. Neither is aware of an indication for prolonged anticoagulation and reports that the doctor he was seeing in 2008 never stopped her medication once it was started. Will review outpatient records to determine if there is anything additional that would require long-term anticoagulation; if not I'm inclined to discontinue anticoagulation if patient is able to increase physical activity. Plan/Intensity of Service Laboratory data reviewed, high-risk medications in use. DVT Prophylaxis: Coumadin Code Status Full Code Hospital Course Summary Disclaimer The hospital course summary below is not to be considered part of the above Progress Note. Hospital Course Summary 07/23-iNko Improved functional capacity. Continue therapies; may benefit from speech therapy for cognitive evaluation although I suspect he would be resistant. Met with Dr. Fox yesterday, full note pending but patient reports he does not believe further psychiatric care needed. Blood sugars moderately elevated, single-dose Lantus ordered for today and Amaryl dose return to 2 mg daily. Suspect blood sugars will improve with increasing activity and prednisone taper. B-12 initiated several days ago for B-12 deficiency, methylmalonic acid pending. INR dropping back into daily therapeutic range, warfarin resumed at 3 mg today. Continue to monitor. Will attempt to clarify with patient or PCP when patient's DVT/PE was an indication for prolonged therapy. BROOKS MARTINEZ MD Jul 25, 2016 18:20
--- NOTE | 2016-07-25 20:15 | NUR ---
Shift summary Patient ambulating with Fww, gait belt, min assist with cueing for picking up right foot while walking. Transfers with min assist. Good appetite, feeds self. Wears glasses. Patient complain of being "tired" today. Working well with therapy. Patient denies discomfort this shift. Continent of bowel and bladder.
[2016-07-25] MEDS: MIRTAZAPINE 15 MG TABLET PO SCH (20:41)
[2016-07-26] VITALS (7 sets, daily range): BP systolic 85–136; BP diastolic 47–75; PULSE 72–86; RESP 16–20; TEMP 97.9–98.6; O2SAT 92–97
[2016-07-26 05:37] LABS: INR 2.58 (0.76-1.04); PROTHROMBIN TIME 28.1 SEC (9.31-12.49)
--- NOTE | 2016-07-26 06:20 | NUR ---
Summary Pt has been up to the BR this morning, denies pain, when asked how he slept he said " good I guess" "I feel less groggy than yesterday". Pt has stated that his "butt muscle" is sore from the "exercising". Pt is in bed trying to go back to sleep for an hour before starting the day. Denies needs, water and call light in reach.
--- NOTE | 2016-07-26 08:20 | NUR ---
HYPOTENTION/VALERIE MCCLURE NOTIFICATION PATIENT IN DINING ROOM EATING BREAKFAST WHEN VITALS CHECKED. BLOOD PRESSURE 85/47, PULSE RATE 85. 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 BLOOD PRESSURE RECHECKED AT 0830 WITH 93/50 RESULT. HE DENIED ANY DIZZINESS WHEN AMBULATING TO DINING ROOM THIS MORNING. VALERIE MCCLURE GRADES 7 AND 8 TEACHER IN DINING ROOM AND INFORMED OF THIS BLOOD PRESSURE. COMMUNICATION ORDER RECEIVED TO PUSH FLUIDS AND RECHECK B/P IN ONE HOUR. CALL IF BLOOD PRESSURE BELOW 90. PATIENT IS COMPLIANT WITH DRINKING THIS MORNING. RETURNED TO ROOM AND BLOOD PRESSURE RECHECKED AT 0930 WITH 106/ 62 RESULT. VALERIE HERE AND INFORMED OF THIS. NO NEW ORDERS. AFTER RETURNING TO HIS ROOM, HE WAS ASSISTED TO THE BATHROOM TO VOID. PITCHER WITH FRESH WATER AND ICE PROVIDED FOR PATIENT. WILL CONTINUE TO MONITOR.
[2016-07-26] MEDS: METFORMIN 1,000 MG TABLET PO SCH ×2 (08:33→17:26)
[2016-07-26] MEDS: GLIMEPIRIDE 2 MG TABLET PO SCH (08:33)
[2016-07-26] MEDS: DOCUSATE SODIUM 100 MG CAPSULE PO SCH ×2 (08:33→21:18)
[2016-07-26] MEDS: PredniSONE 10 MG TABLET PO SCH (08:33)
[2016-07-26] MEDS: CYANOCOBALAMIN (B-12) 1000mcg/ml INJECTION IM SCH (08:34)
--- NOTE | 2016-07-26 09:37 | NUR ---
WARFARIN CONSULT S: 76 y/o M on warfarin for extended secondary DVT prophylaxis. Home dose is 5 mg daily. Goal INR 2-3. O: Date INR Warfarin Dose 07/20 2.72 5 mg 07/21 3.78 Held 07/22 3.93 Held 07/23 3.00 3 mg 07/24 2.68 3 mg 07/25 2.61 3 mg 07/26 2.58 3 mg A/P: The INR is therapeutic. I ordered warfarin 3 mg PO today. The pharmacy will continue to monitor & make adjustments accordingly. Thank you for the consult, Darrin Castle, Pharmacist.
[2016-07-26] MEDS: INSULIN LISPRO 100 UNIT/ML SQ PRN ×3 (10:17→20:18)
[2016-07-26] MEDS ORDERED: WARFARIN 3 MG TABLET PO SCH (12:00)
--- NOTE | 2016-07-26 13:04 | PDIRUTEAM ---
Multidisciplinary Team Meeting Nursing Hx Incontinence: No Bladder Goal: 7+ Complete Starke Moseley Y/N: No Bladder Continent or Incontine: Continent Incontinent Product Used: Patient's Own Underwear Cleaning Ability-Bladder: 6 Modified Starke Bladder Incontinence Managemen: 5 Supervision/Setup Bowel Goal: 7+ Complete Starke Colostomy Y/N: No Bowel Incontinent/Continent: Continent Bowel Number of Accidents: 0 Number of times Incontinent of: 0 Cleaning Ability-Bowel: 7+ Complete Starke Toileting Ability: 5 Supervision/Setup Vital Signs Vital Signs Date Time Temp Pulse Resp B/P Pulse Ox O2 Delivery O2 Flow Rate FiO2 07/26/16 09:35 106/62 07/26/16 08:20 97.9 85 16 92 Room Air 07/22/16 15:44 95 Current Medications Current Medications Medications (Trade) Dose Ordered Sig/Veronika Route PRN Reason Start Time Stop Time Status Last Admin Dose Admin Docusate Sodium (Colace) 100 mg BID PO 07/21/16 21:00 07/26/16 08:33 Cyanocobalamin (Vit. B-12) 1,000 mcg DAILY IM 07/22/16 09:00 07/22/16 11:20 DC 07/22/16 09:48 Glimepiride (Amaryl) 1 mg WB PO 07/22/16 08:00 07/23/16 16:07 DC 07/23/16 08:58 Metformin HCl (Glucophage) 1,000 mg BIDWM PO 07/21/16 17:30 07/26/16 08:33 Mirtazapine (Remeron) 15 mg HS PO 07/21/16 22:00 07/25/16 20:41 Prednisone (PredniSONE) 10 mg WB PO 07/26/16 08:00 07/28/16 12:00 07/26/16 08:33 Prednisone (PredniSONE) 20 mg WB PO 07/23/16 08:00 07/25/16 12:00 DC 07/25/16 08:54 Insulin Human Lispro (Humalog) SS PRN SQ 07/21/16 19:15 07/26/16 10:17 Cyanocobalamin (Vit. B-12) 1,000 mcg DAILY IM 07/23/16 09:00 07/29/16 08:59 07/26/16 08:34 Glimepiride (Amaryl) 2 mg WB PO 07/24/16 08:00 07/26/16 08:33 Warfarin Sodium (COUMADIN 3 mg) 3 mg NOON PO 07/24/16 12:00 07/24/16 12:30 DC 07/24/16 12:26 Warfarin Sodium (COUMADIN 3 mg) 3 mg NOON PO 07/25/16 12:00 07/25/16 12:30 DC 07/25/16 12:09 Warfarin Sodium (COUMADIN 3 mg) 3 mg NOON PO 07/26/16 12:00 07/26/16 12:30 DC 07/26/16 11:48 Comments BGM running 140-160. Prednisone stopped yesterday. INR also elevated and dosing of coumadin changed. Depression may be improving per son. Physical Therapy Bed Transfer Ability: 5 Supervision/Setup Bed Transfer Assistance Needed: 1 Person Chair Transfer Ability: 4 Minimal Assistance Chair Transfer Assistance Need: 1 Person Overall Wheelchair Transfer Ab: 3 Moderate Assistance Wheelchair Transfer Assistance: 1 Person Overall Toilet / Commode Trans: 4 Minimal Assistance Ambulation Ability: 6 Modified Starke Ambulation Assistance Needed: 1 Person Walk FIM Score Reason: Pt demo gait training with FWW SBA. Ambulation Distance: 197 Comments Working on clearing right foot when walking. Tends to drag foot. Occupational Therapy Grooming Ability: 5 Supervision/Setup Bathing Ability: 5 Supervision/Setup Upper Body Dressing Ability: 5 Supervision/Setup Lower Body Dressing Ability: 5 Supervision/Setup Lower Body Dressing Assistance: 1 Person Toileting Assistance Needed: 1 Person Comments FIMS 5 across board. Pt is teary and emotional. Care Plan Condition at time of discharge: Fair IRU Discharge Disposition: Home Health Service Interventions/Goals Recommend home safety assessment by PT. Consider assisted living on d/c, if pt not able to go home. D/c pending home safety assessment. Barriers to d/c, weakness, endurance, balance. FANG MENJIVAR MD Jul 26, 2016 13:03
--- NOTE | 2016-07-26 14:57 | PNPDOC ---
IRU Subjective Date DATE: 07/26/16 TIME: 14:53 Subjective Pt willingly working with PT and OT. He is walking nix with supervision. IRU Objective Vital Signs Vital signs Vital Signs Date Time Temp Pulse Resp B/P Pulse Ox O2 Delivery O2 Flow Rate FiO2 07/26/16 13:17 86 105/58 07/26/16 08:20 97.9 16 92 Room Air 07/22/16 15:44 95 Telemetry Rhythm: Sinus Rhythm Height (Feet): 6 Height (Inches): 3.00 Weight (Kilograms): 116.600 General General Appearance: Alert, Orientated x 3 Respiratory (Brief) Respiratory: FOUND: clear all haley, equal bilaterally Cardiovascular (Brief) Cardiac: FOUND: pedal edema (trace), regular rate, regular rhythm Capillary Refill: <2 sec Laboratory Laboratory Laboratory Tests Test 07/24/16 21:32 07/25/16 04:20 07/25/16 05:08 07/25/16 10:12 Glucometer 227mg/dL 140mg/dL 236mg/dL Prothromb Time International Ratio 2.61 Test 07/25/16 14:09 07/25/16 20:41 07/26/16 05:06 07/26/16 06:12 Glucometer 227mg/dL 267mg/dL 157mg/dL Prothromb Time International Ratio 2.58 Test 07/26/16 10:05 07/26/16 14:06 Glucometer 230mg/dL 219mg/dL Assessment & Plan Problems: (1) Bilateral lumbar radiculopathy Assessment & Plan: Working with PT and OT, willing to cont with current plan of care. (2) Diabetic neuropathy Status: Chronic Qualifiers: Diabetes mellitus type: type 2 Assessment & Plan: Pain cont to be an issue. Pt is frustrated, but wants to get home, back to more active lifestyle. Cont with PT and OT plan of care. (3) Vitamin B12 deficiency Status: Acute Assessment & Plan: medical management. (4) Non-insulin dependent type 2 diabetes mellitus Status: Chronic Assessment & Plan: Medical managing and control tightening appropriately of sugars. (5) Generalized muscle weakness Status: Acute Assessment & Plan: SHowing increase FIM scores, increase strength. Assessment Continue rehabilitation activities. Blood sugars running high on home regimen; prednisone due to be completed in 2 days. Remains on daily B-12 injections through 07/29, then weekly for 1 month, then monthly. Methylmalonic acid pending from acute hospital stay. Very flat affect, continue mirtazapine at current dose. Would benefit from outpatient therapy if patient agreeable. INR therapeutic on 3 mg warfarin daily. I spoke with the patient and his son regarding past DVT/PE-only one known event in 2008. Neither is aware of an indication for prolonged anticoagulation and reports that the doctor he was seeing in 2008 never stopped her medication once it was started. Will review outpatient records to determine if there is anything additional that would require long-term anticoagulation; if not I'm inclined to discontinue anticoagulation if patient is able to increase physical activity. Code Status Full Code Interventions to Obtain Goals PT Treatment Plan: Therapeutic Exercise, Gait Training, Functional Activities , Patient/Family Education, Balance/Proprioception OT Treatment Plan: ADL's (basic care), Ther. Exercise for ADL's, UE Functional Training, Balance Training, Pt./Family Education, IADL's Hospital Course Summary Disclaimer The hospital course summary below is not to be considered part of the above Progress Note. Hospital Course Summary 07/23-Niko Improved functional capacity. Continue therapies; may benefit from speech therapy for cognitive evaluation although I suspect he would be resistant. Met with Dr. Fox yesterday, full note pending but patient reports he does not believe further psychiatric care needed. Blood sugars moderately elevated, single-dose Lantus ordered for today and Amaryl dose return to 2 mg daily. Suspect blood sugars will improve with increasing activity and prednisone taper. B-12 initiated several days ago for B-12 deficiency, methylmalonic acid pending. INR dropping back into daily therapeutic range, warfarin resumed at 3 mg today. Continue to monitor. Will attempt to clarify with patient or PCP when patient's DVT/PE was an indication for prolonged therapy. FANG MENJIVAR MD Jul 26, 2016 14:56
--- NOTE | 2016-07-26 15:16 | NUR ---
ACTIVITY/INTAKE PATIENT AMBULATED WITH PT TODAY USING HIS FWW. HE TOLERATED ACTIVITY WELL TODAY AND IS COMPLIANT WITH THERAPIES. PATIENT WAS ASSISTED BY ONE STAFF MEMBER TO THE DINING ROOM FOR MEALS. HIS APPETITE HAS BEEN GOOD TODAY. HE HAS DENIED PAIN ALL DAY. HE IS VOIDING WELL AFTER PUSHING FLUIDS. COLOR OF URINE IS NOT DARK THIS AM. NO STRONG ODOR NOTED. I ENCOURAGED HIM TO CONTINUE DRINKING WATER. HE HAS BEEN UP ALL DAY IN CHAIR OR AMBULATING.
--- NOTE | 2016-07-26 18:44 | NUR ---
Dietary Consult R/T Diabetes RD visited with pt briefly regarding pt's diabetes. Pt reports his son and brother were arriving in town and he would like them to be present for the instruction. RD will return for dietary consult when son and brother are present. RD provided contact information for pt. RD available at ext [phone]
--- NOTE | 2016-07-26 19:12 | NUR ---
Shift Summary Pt is resting in the recliner at this time. Ambulates well with assist of 1, FWW, and gait belt. Has been continent this shift, able to manage his own clothing and hygiene cares. Ate well for dinner this evening, ambulated to the dining room. Worked well with therapy today. Sat up in the recliner all shift today. Denied pain. When in bed or the chair the alarm is in use and call light is within reach.
[2016-07-26] MEDS: MIRTAZAPINE 15 MG TABLET PO SCH (21:18)
--- NOTE | 2016-07-27 02:46 | NUR ---
Chart Check 24 hour chart check completed
[2016-07-27 05:06] LABS: INR 2.28 (0.76-1.04); PROTHROMBIN TIME 24.9 SEC (9.31-12.49)
[2016-07-27 05:14] VITALS: BP 114/61; PULSE 88; RESP 20; O2SAT 93
--- NOTE | 2016-07-27 07:45 | NUR ---
Summary Jose is a pleasant and cooperative gentleman.He has denied pain. He is alert and oriented x three.He has been to the bathroom to void frequently through the night.He denies pain or burning with urination. He has been continent of bladder.He ambulates and transfers with fww gb and stand by assist. Hygiene and clothing management per pt.He wears his own underwear.He is able to make his needs known. Appropriate use of call light.
[2016-07-27 08:00] VITALS: BP 94/58; PULSE 78; RESP 18; TEMP 97.6; O2SAT 97
[2016-07-27] MEDS: DOCUSATE SODIUM 100 MG CAPSULE PO SCH ×2 (08:46→21:27)
[2016-07-27] MEDS: METFORMIN 1,000 MG TABLET PO SCH ×2 (08:46→17:52)
[2016-07-27] MEDS: GLIMEPIRIDE 2 MG TABLET PO SCH (08:46)
[2016-07-27] MEDS: PredniSONE 10 MG TABLET PO SCH (08:46)
[2016-07-27] MEDS: CYANOCOBALAMIN (B-12) 1000mcg/ml INJECTION IM SCH (08:47)
[2016-07-27 09:45] VITALS: PULSE 78; RESP 18
--- NOTE | 2016-07-27 09:55 | NUR ---
WARFARIN CONSULT S: 76 y/o M on warfarin for extended secondary DVT prophylaxis. Home dose is 5 mg daily. Goal INR 2-3. O: Date INR Warfarin Dose 07/20 2.72 5 mg 07/21 3.78 Held 07/22 3.93 Hold 07/23 3.00 3 mg 07/24 2.68 3 mg 07/25 2.61 3 mg 07/26 2.58 3 mg 07/27 2.28 Plan 4 mg A/P: The INR is therapeutic. I ordered warfarin 4 mg PO today because of the slight drop in the INR. The pharmacy will continue to monitor & make adjustments accordingly. Thank you for the consult, Darrin Castle, Pharmacist.
[2016-07-27] MEDS: INSULIN LISPRO 100 UNIT/ML SQ PRN ×3 (10:12→21:26)
[2016-07-27] MEDS ORDERED: WARFARIN 4 MG TABLET PO SCH (12:00)
--- NOTE | 2016-07-27 14:47 | NUR ---
MNT r/t DM2 Diet: [id number]; homes meds: Glimepiride, Metformin; A1c: 6.5 Pt requested MNT after brother & son (from [place]) were able to sit in on consult. RD reviewed DM meds and when to take them. Pt's son or D-I-L takes him grocery shopping, but he doesn't have meal-planning or meal prep skills. His passed ~ 3 y ago. His son stated that he snacks throughout the day, and doesn't really eat [address] suggested Strategic Eating 1-2-3 as a way to plan meals without much preparation, but i. t seems the patient doesn't have much motivation to open containers and eat 3 meals. Family asked about [facility], which RD stated would be a good option. They are also looking for more ways that he could interact with people. RD stated she would alert CM.
--- NOTE | 2016-07-27 15:47 | NUR ---
CM THIS WORKER RECALLED PT FROM MEDICAL FLOOR AND REINTRODUCED SELF AND ROLE OF CASE MANAGEMENT. THIS WORKER GAVE INFORMATION ON MEALS ON WHEELS, PT WAS ACCEPTING AND STATED HE WOULD DISCUSS THIS WITH FAMILY. THIS WORKER ALSO GAVE INFORMATION ON [facility] [place], PT DECLINED STATING HE DIDN'T WANT TO GO THERE. PT GAVE PT INFORMATION ON ASSISTED LIVING AND DIFFERENT FACILITIES NEARBY. PT STATED HE WANTS TO GO HOME AFTER DISCHARGE. THIS WORKERS STATED SHE WILL BE IN CONTACT WITH HIM AND FAMILY.
--- NOTE | 2016-07-27 16:19 | NUR ---
CM SPOKE WITH PT. ALSO REVIEWED DC PLAN, AND PT STILL STATED HE WANTS TO RETURN HOME AND DID NOT WANT TO GO TO ASSISTED LIVING. REVIEWED POSSIBLE DC DATE WOULD BE AFTER THE INHOME EVALUATION WITH PT/OT TAKES PLACE. PT WAS AGREEABLE TO THIS. HE GAVE PERMISSION TO CONTACT HIS SON AND BROTHER ABOUT THIS. (GUILHERME, SON: [phone]. BROTHER, AARON: [phone]). CALLED BROTHER, AARON, WHO PUT PHONE ON SPEAKER AND SO THIS WORKER SPOKE WITH BOTH GUILHERME AND AARON. DISCUSSED DC PLAN AND POSSIBLE DC DATE AFTER THE INHOME EVAL. THIS WAS SCHEDULED FOR SUN, 10 AM. GUILHERME HAD QUESTIONS ABOUT EITHER HOME HEALTH OR OUTPT PHY THERAPY. THIS WORKER EXPLAINED THESE ARE BOTH POSSIBILITIES AND SOMETHING INSURANCE WOULD COVER, BUT IT MIGHT NEED TO BE ARRANGED THROUGH HIS PRIMARY DOCTOR DURING HIS DOCTORS' VISIT AFTER DC. HE HAD NO FURTHER QUESTIONS/NEEDS
[2016-07-27 16:23] VITALS: BP 104/53; PULSE 77; RESP 16; TEMP 98.4; O2SAT 94
--- NOTE | 2016-07-27 18:46 | NUR ---
SHIFT SUMMARY PT HAS BEEN PLEASANT AND COOPERATIVE. PT WORKED WTH THERAPY. AMBULATES WITH FWW AND GAIT BELT. HAS BEEN OUT TO DINING ROOM. PT AMBULATES TO FARTHEST TABLE IN DINING ROOM. PT CONTINUES TO DRAG RIGHT FOOT WHEN AMBULATING. PT'S FAMILY CAME FOR A MEETING WITH DIETARY.
[2016-07-27] MEDS: MIRTAZAPINE 15 MG TABLET PO SCH (21:27)
[2016-07-27 21:50] VITALS: BP 109/62; PULSE 68; RESP 16; TEMP 97.9; O2SAT 94
--- NOTE | 2016-07-27 22:38 | NUR ---
Chart Check 24 hour chart check completed
[2016-07-27 23:30] VITALS: PULSE 68; RESP 16
--- NOTE | 2016-07-28 03:05 | NUR ---
Summary Trevon is alert and oriented x three. He visits easily with staff and his son. He ambulates and transfers with [facility] gait belt and standby assist. He walked with staff in the hallway. His gait is steady although he does drag his right foot somewhat .He is able to get his feet into and out of bed on his own. He denies pain. He sleeps in his bed with SR up x two and bed alarms intact. He is continent of bladder. He wears his own underwear and manages his own clothes and hygiene when toileting .He voids frequently and he states that this is normal for him. He is able to stand at the sink and brush his own teeth with staff sba. He takes his meds whole.
[2016-07-28 05:54] LABS: INR 2.21 (0.76-1.04); PROTHROMBIN TIME 24.1 SEC (9.31-12.49)
[2016-07-28 08:22] VITALS: BP 124/68; PULSE 84; RESP 18; TEMP 98.8; O2SAT 94
[2016-07-28] MEDS: GLIMEPIRIDE 2 MG TABLET PO SCH (08:51)
[2016-07-28] MEDS: PredniSONE 10 MG TABLET PO SCH (08:51)
[2016-07-28] MEDS: DOCUSATE SODIUM 100 MG CAPSULE PO SCH ×2 (08:51→21:19)
[2016-07-28] MEDS: METFORMIN 1,000 MG TABLET PO SCH ×2 (08:52→17:23)
[2016-07-28] MEDS: CYANOCOBALAMIN (B-12) 1000mcg/ml INJECTION IM SCH (08:52)
[2016-07-28 09:00] VITALS: PULSE 84; RESP 18
--- NOTE | 2016-07-28 09:35 | NUR ---
WARFARIN CONSULT S: 76 y/o M on warfarin for extended secondary DVT prophylaxis. Home dose is 5 mg daily. Goal INR 2-3. O: Date INR Warfarin Dose 07/20 2.72 5 mg 07/21 3.78 Held 07/22 3.93 Hold 07/23 3.00 3 mg 07/24 2.68 3 mg 07/25 2.61 3 mg 07/26 2.58 3 mg 07/27 2.28 4 mg 07/28 2.21 Plan 4mg A/P: The INR is therapeutic. I ordered warfarin 4 mg PO today because of the slight drop in the INR. The pharmacy will continue to monitor & make adjustments accordingly. Thank you for the consult.
[2016-07-28] MEDS: INSULIN LISPRO 100 UNIT/ML SQ PRN ×3 (10:06→21:20)
--- NOTE | 2016-07-28 10:07 | NUR ---
Glycemic control: No juice A1c: 6.5 diet: [id number]; intake: 100% of all meals; Nourishments:TID; BMI: 32.1 RN stated that excessive carbohydrate intake is contributing to hyperglycemia. Pt begins day with elevated FBS and remains elevated during the day. Diet of CC200 meets energy and nutrient needs. Additional supplements are not recommended as they likely contribute to daytime hyperglycemia. Pt frequently orders juice with his meals, which also contributes to hyperglycemia. Since his chewing and swallowing wnl, NO juice is recommended for this patient.
--- NOTE | 2016-07-28 10:08 | PNPDOC ---
IRU Subjective Date DATE: 07/28/16 TIME: 10:05 Subjective PT setting up home visit for safety evaluation. Discussed with family that this is not a state review, rather just a chance to take him home, and see what things we can help with. He does continue to work with physical therapy and occupational therapy. IRU Objective Vital Signs Vital signs Vital Signs Date Time Temp Pulse Resp B/P Pulse Ox O2 Delivery O2 Flow Rate FiO2 07/28/16 09:00 84 18 07/28/16 08:22 98.8 124/68 94 Room Air Telemetry Rhythm: Sinus Rhythm Height (Feet): 6 Height (Inches): 3.00 Weight (Kilograms): 116.600 General General Appearance: Alert, Orientated x 2 Respiratory (Brief) Respiratory: FOUND: clear all haley, equal bilaterally, NOT FOUND: rales, wheezes Cardiovascular (Brief) Cardiac: FOUND: regular rate, regular rhythm, NOT FOUND: pedal edema Capillary Refill: <2 sec Abdomen (Brief) Abdominal: FOUND: BS normo active x4, soft, NOT FOUND: tender Laboratory Laboratory Laboratory Tests Test 07/26/16 14:06 07/26/16 20:12 07/27/16 04:16 07/27/16 05:11 Glucometer 219mg/dL 215mg/dL 149mg/dL Prothromb Time International Ratio 2.28 Test 07/27/16 10:06 07/27/16 14:00 07/27/16 21:16 07/28/16 05:04 Glucometer 255mg/dL 264mg/dL 241mg/dL Prothromb Time International Ratio 2.21 Test 07/28/16 05:43 07/28/16 10:01 Glucometer 153mg/dL Assessment & Plan Problems: (1) Bilateral lumbar radiculopathy Assessment & Plan: Working with PT and OT, continue current plan. Patient showing FIM score improvement (2) Diabetic neuropathy Status: Chronic Qualifiers: Diabetes mellitus type: type 2 Assessment & Plan: Stable, working to increase activity despite pain Medical managing sugars (3) Vitamin B12 deficiency Status: Acute Assessment & Plan: Managed by medical (4) Non-insulin dependent type 2 diabetes mellitus Status: Chronic Assessment & Plan: Managed by medical (5) Generalized muscle weakness Status: Acute Assessment & Plan: PT and OT for current plan. Continue. Assessment Continue rehabilitation activities. Blood sugars running high on home regimen; prednisone due to be completed in 2 days. Remains on daily B-12 injections through 07/29, then weekly for 1 month, then monthly. Methylmalonic acid pending from acute hospital stay. Very flat affect, continue mirtazapine at current dose. Would benefit from outpatient therapy if patient agreeable. INR therapeutic on 3 mg warfarin daily. I spoke with the patient and his son regarding past DVT/PE-only one known event in 2008. Neither is aware of an indication for prolonged anticoagulation and reports that the doctor he was seeing in 2008 never stopped her medication once it was started. Will review outpatient records to determine if there is anything additional that would require long-term anticoagulation; if not I'm inclined to discontinue anticoagulation if patient is able to increase physical activity. Code Status Full Code Interventions to Obtain Goals PT Treatment Plan: Therapeutic Exercise, Gait Training, Functional Activities , Patient/Family Education, Balance/Proprioception OT Treatment Plan: ADL's (basic care), Ther. Exercise for ADL's, UE Functional Training, Balance Training, Pt./Family Education, IADL's Hospital Course Summary Disclaimer The hospital course summary below is not to be considered part of the above Progress Note. Hospital Course Summary 07/23-Niko Improved functional capacity. Continue therapies; may benefit from speech therapy for cognitive evaluation although I suspect he would be resistant. Met with Dr. Fox yesterday, full note pending but patient reports he does not believe further psychiatric care needed. Blood sugars moderately elevated, single-dose Lantus ordered for today and Amaryl dose return to 2 mg daily. Suspect blood sugars will improve with increasing activity and prednisone taper. B-12 initiated several days ago for B-12 deficiency, methylmalonic acid pending. INR dropping back into daily therapeutic range, warfarin resumed at 3 mg today. Continue to monitor. Will attempt to clarify with patient or PCP when patient's DVT/PE was an indication for prolonged therapy. FANG MENJIVAR MD Jul 28, 2016 10:07
[2016-07-28] MEDS ORDERED: WARFARIN 4 MG TABLET PO SCH (12:00)
--- NOTE | 2016-07-28 15:00 | NUR ---
BGM Pt.'s BGM at 1000 noted to be 281 and pt.'s BGM at 1400 noted to be 263. Insulin per sliding scale orders administered. Please see eMAR. Spoke with microbial specialist about re-adjusting pt.'s diet. She changed diet so pt. can no longer have juice. Prednisone also noted to be DC'd today. Please see eMAR. Will continue to monitor.
--- NOTE | 2016-07-28 15:48 | PNPDOC ---
Subjective Date DATE: 07/28/16 TIME:829 Subjective Mr Henry is seen multiple times throughout today. He is alert and in good spirits this morning. During initial examination. He is without complaints of pain or shortness of breath. He is pleased with today's plan which will be to do physical [facility]. Blood pressure this morning 124/68. He is voiding without difficulties. Bowels last moved 07/26. Objective Vital Signs Vital signs Vital Signs Date Time Temp Pulse Resp B/P Pulse Ox O2 Delivery O2 Flow Rate FiO2 07/28/16 09:00 84 18 07/28/16 08:22 98.8 124/68 94 Room Air Telemetry Rhythm: Sinus Rhythm Height (Feet): 6 Height (Inches): 3.00 Weight (Kilograms): 116.600 General General Appearance: Alert, Orientated x 3, Cooperative, No Acute Distress Eyes (Brief) Eyes: FOUND: EOMI ENMT (Brief) ENMT: FOUND: mucosa moist, normal dentition, NOT FOUND: pharnyx erythema Neck (Brief) Neck: FOUND: midline, NOT FOUND: adenopathy, carotid bruits, tracheal deviation Respiratory (Brief) Respiratory: FOUND: clear all haley, equal bilaterally, NOT FOUND: wheezes Cardiovascular (Brief) Cardiac: FOUND: regular rate, regular rhythm, NOT FOUND: murmur, pedal edema Capillary Refill: <2 sec Abdomen (Brief) Abdominal: FOUND: BS normo active x4, soft, NOT FOUND: distended, tender Lymphatic (Brief) Lymphatic: NOT FOUND: adenopathy Musculoskeletal (Brief) Musculoskeletal: NOT FOUND: tenderness Integumentary (Brief) Integumentary: FOUND: dry, pink, warm Neurologic (Brief) Neurological: FOUND: cranial 2-12 intact Psychiatric (Brief) Psychiatric: FOUND: alert, attentive, normal affect, oriented Assessment & Plan Problems: (1) Debility Status: Acute (2) Generalized muscle weakness Status: Acute (3) Vitamin B12 deficiency Status: Acute Assessment & Plan: B 12 injections initiated prior to transfer to rehabilitation; methylmalonic acid pending as of 07/25 (4) Diabetic neuropathy Status: Chronic Qualifiers: Diabetes mellitus type: type 2 (5) Non-insulin dependent type 2 diabetes mellitus Status: Chronic Assessment & Plan: A1c 6.5 on 07/20/16 (6) Anemia Status: Chronic Qualifiers: Anemia type: B12 deficiency Vitamin B12 deficiency anemia type: unspecified B12 deficiency Qualified Codes: D51.9 - Vitamin B12 deficiency anemia, unspecified (7) Protein-calorie malnutrition, moderate Status: Acute Assessment & Plan: present on admission - prealbumin 8.2. (8) Depression Status: Chronic Assessment & Plan: Mirtazapine initiated approximately 07/15/16 per PCP (9) Chronic anticoagulation Status: Chronic Assessment & Plan: warfarin treatment for chronic DVT. (10) TIA (transient ischemic attack) Status: Chronic Assessment & Plan: history of TIA. 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 Expect that blood sugars may decrease . Continue with Daily Vit B12 IM through 07/29, then weekly for 1 month, then monthly. Methylmalonic acid is 0.19 Which is normal. continue mirtazapine at current dose. INR today 2.21 and Coumadin management as per pharmacy dosing Continue to work with PT/OT Planning for home evaluation today by PT. Code Status Full Code Hospital Course Summary Disclaimer The hospital course summary below is not to be considered part of the above Progress Note. Hospital Course Summary 07/23-Niko Improved functional capacity. Continue therapies; may benefit from speech therapy for cognitive evaluation although I suspect he would be resistant. Met with Dr. Fox yesterday, full note pending but patient reports he does not believe further psychiatric care needed. Blood sugars moderately elevated, single-dose Lantus ordered for today and Amaryl dose return to 2 mg daily. Suspect blood sugars will improve with increasing activity and prednisone taper. B-12 initiated several days ago for B-12 deficiency, methylmalonic acid pending. INR dropping back into daily therapeutic range, warfarin resumed at 3 mg today. Continue to monitor. Will attempt to clarify with patient or PCP when patient's DVT/PE was an indication for prolonged therapy. 07/28/16 Continue to monitor blood sugars.this morning was the final dose of prednisone. Expect that blood sugars may decrease . Continue with Daily Vit B12 IM through 07/29, then weekly for 1 month, then monthly. Methylmalonic acid is 0.19 Which is normal. continue mirtazapine at current dose. INR today 2.21 and Coumadin management as per pharmacy dosing Continue to work with PT/OT Planning for home evaluation today by PT. VALERIE MCCLURE APRN Jul 28, 2016 15:47
--- NOTE | 2016-07-28 15:56 | NUR ---
CM SPOKE WITH PHYS THERAPY; HOME EVAL WENT WELL. DC PLAN REMAINS FOR PT TO RETURN HOME. RECEIVED CALL FROM MEKA WITH [facility] ([phone]). SHE SAID THE FAMILY HAS CHOSEN [facility] FOR HOME HEALTH. SHE SAID SHE WILL COME OUT AND SEE PT ON SUN. THIS WORKER ADVISED HER THAT DC DATE NOT SET YET, AND ALSO THAT THIS WORKER WILL NEED TO CONTACT HIS DOCTORS' OFFICE FIRST TO SEE IF HE WILL APPROVE HOME HEALTH TO BE SET UP DIRECTLY FROM THE HOSPITAL.
[2016-07-28 16:01] VITALS: BP 115/65; PULSE 81; RESP 18; TEMP 97.6; O2SAT 94
--- NOTE | 2016-07-28 17:43 | NUR ---
Summary VS's stable. Pt. has denied nausea, SOA and pain. Encouraged fluids. He is a transfer x1 with FWW and gait belt. Pt. is mod-I to supervision with toileting and cares. Pt. is very pleasant and A/O. Pt. has walked to and from all meals. He also went for an extra walk down the nix with CONTACT FINGER ASSEMBLER this afternoon. Will pass on report to slot shift supervisor.
[2016-07-28] MEDS: MIRTAZAPINE 15 MG TABLET PO SCH (21:18)
[2016-07-29 01:10] VITALS: BP 100/63; PULSE 72; RESP 16; O2SAT 95
--- NOTE | 2016-07-29 05:27 | NUR ---
Summary Pt enjoyed watching the game on TV with visitors last night. Trevon walked to Pharmacy and back with a Nurse aide before going to sleep last night. Pt has been up to the BR several times last night. Sleeping at this time call light and water at bedside
[2016-07-29 07:35] VITALS: BP 110/62; PULSE 85; RESP 20; TEMP 98.6; O2SAT 94
[2016-07-29 08:00] VITALS: PULSE 85; RESP 20
[2016-07-29 08:00] LABS: INR 2.31 (0.76-1.04); PROTHROMBIN TIME 25.2 SEC (9.31-12.49)
[2016-07-29] MEDS: GLIMEPIRIDE 2 MG TABLET PO SCH (09:04)
[2016-07-29] MEDS: DOCUSATE SODIUM 100 MG CAPSULE PO SCH ×2 (09:04→20:33)
[2016-07-29] MEDS: METFORMIN 1,000 MG TABLET PO SCH ×2 (09:04→17:33)
--- NOTE | 2016-07-29 10:57 | NUR ---
WARFARIN CONSULT S: 76 y/o M on warfarin for extended secondary DVT prophylaxis. Home dose is 5 mg daily. Goal INR 2-3. O: Date INR Warfarin Dose 07/20 2.72 5 mg 07/21 3.78 Held 07/22 3.93 Hold 07/23 3.00 3 mg 07/24 2.68 3 mg 07/25 2.61 3 mg 07/26 2.58 3 mg 07/27 2.28 4 mg 07/28 2.21 4 mg 07/29 2.31 plan: 4 mg daily. A/P: The INR is therapeutic. warfarin 4 mg PO daily ordered. INR Q Sunday and . The pharmacy will continue to monitor & make adjustments accordingly. Thank you for the consult. Mary Garland RPh
[2016-07-29] MEDS: INSULIN LISPRO 100 UNIT/ML SQ PRN ×2 (11:00→20:41)
[2016-07-29] MEDS ORDERED: CYANOCOBALAMIN (B-12) 1000mcg/ml INJECTION IM SCH (11:15)
[2016-07-29] MEDS: WARFARIN 4 MG TABLET PO SCH (12:15)
[2016-07-29 16:00] VITALS: BP 142/72; PULSE 80; RESP 12; TEMP 98.6; O2SAT 99
--- NOTE | 2016-07-29 16:43 | NUR ---
Status Patient ambulating to and from meals with min to stand by assist. 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 Patient stated he noticed right foot starting to drag "several years ago". Transfers with gait belt, stand by assist. Feeds self meals, takes med whole. Bathing with set up assist, Upper and lower extremity dressing with set up assist. Oral hygeine with stand by assist. BGM at 1400 was 486; retaken at 1420 BGM was 173. Ira NEWSOME notified. BGM at 1500 was 166. No insulin given. Son visited this afternoon, stated home eval went well. Continent of bladder, wears own underwear.
[2016-07-29 20:00] VITALS: BP 115/59; PULSE 79; RESP 18; TEMP 98.2; O2SAT 97
[2016-07-29] MEDS: MIRTAZAPINE 15 MG TABLET PO SCH (20:33)
[2016-07-30] MEDS: ACETAMINOPHEN 325 MG TABLET PO PRN ×2 (00:32→14:00)
--- NOTE | 2016-07-30 06:34 | NUR ---
Chart Check 24 hour chart check completed
--- NOTE | 2016-07-30 06:35 | NUR ---
Summary Pt state he has slept well, denied pain. Pt ambulated to "main street nix" and back before bed. Pt asleep at this time.
[2016-07-30 08:00] VITALS: BP 121/70; PULSE 80; RESP 20; TEMP 97.8
[2016-07-30] MEDS: DOCUSATE SODIUM 100 MG CAPSULE PO SCH ×2 (08:45→20:18)
[2016-07-30] MEDS: GLIMEPIRIDE 2 MG TABLET PO SCH (08:45)
[2016-07-30] MEDS: METFORMIN 1,000 MG TABLET PO SCH ×2 (08:45→17:25)
--- NOTE | 2016-07-30 09:40 | PNPDOC ---
Subjective Date DATE: 07/30/16 TIME: 09:27 Subjective Mr Carl is seen today in follow up while waiting for breakfast. He is frustrated as he feels he is not getting enough therapy over the past few days. We discussed that his home eval Sunday with PT was his therapy. Encouraged him to request to ambulate several times today. He denies having any pain this morning and denies feeling short of breath. Noted he had hyperglycemia yesterday afternoon at 486. Fasting BGM this morning was 155. Denies difficulty with urination and reports he feels that bowels are not moving often enough. BP 121/70. Objective Vital Signs Vital signs Vital Signs Date Time Temp Pulse Resp B/P Pulse Ox O2 Delivery O2 Flow Rate FiO2 07/30/16 08:00 97.8 80 20 121/70 Room Air 07/29/16 20:00 97 Telemetry Rhythm: Sinus Rhythm Height (Feet): 6 Height (Inches): 3.00 Weight (Kilograms): 114.400 General General Appearance: Alert, Orientated x 3, Cooperative, No Acute Distress Eyes (Brief) Eyes: FOUND: EOMI ENMT (Brief) ENMT: FOUND: mucosa moist, normal dentition, NOT FOUND: pharnyx erythema Neck (Brief) Neck: FOUND: midline, NOT FOUND: adenopathy, carotid bruits, tracheal deviation Respiratory (Brief) Respiratory: FOUND: clear all haley, equal bilaterally, NOT FOUND: wheezes Cardiovascular (Brief) Cardiac: FOUND: regular rate, regular rhythm, NOT FOUND: murmur, pedal edema Capillary Refill: <2 sec Abdomen (Brief) Abdominal: FOUND: BS normo active x4, soft, NOT FOUND: distended, tender Extremities (Brief) Extremity : Side: Bilateral Extremity Finding: FOUND: edema (Trace bilateral lower ext) Lymphatic (Brief) Lymphatic: NOT FOUND: adenopathy Musculoskeletal (Brief) Musculoskeletal: NOT FOUND: tenderness Integumentary (Brief) Integumentary: FOUND: dry, pink, warm Neurologic (Brief) Neurological: FOUND: cranial 2-12 intact Psychiatric (Brief) Psychiatric: FOUND: alert, attentive, normal affect, oriented Assessment & Plan Problems: (1) Debility Status: Acute (2) Generalized muscle weakness Status: Acute (3) Vitamin B12 deficiency Status: Acute Assessment & Plan: B 12 injections initiated prior to transfer to rehabilitation; methylmalonic acid pending as of 07/25 (4) Diabetic neuropathy Status: Chronic Qualifiers: Diabetes mellitus type: type 2 (5) Non-insulin dependent type 2 diabetes mellitus Status: Chronic Assessment & Plan: A1c 6.5 on 07/20/16 (6) Anemia Status: Chronic Qualifiers: Anemia type: B12 deficiency Vitamin B12 deficiency anemia type: unspecified B12 deficiency Qualified Codes: D51.9 - Vitamin B12 deficiency anemia, unspecified (7) Protein-calorie malnutrition, moderate Status: Acute Assessment & Plan: present on admission - prealbumin 8.2. (8) Depression Status: Chronic Assessment & Plan: Mirtazapine initiated approximately 07/15/16 per PCP (9) Chronic anticoagulation Status: Chronic Assessment & Plan: warfarin treatment for chronic DVT. (10) TIA (transient ischemic attack) Status: Chronic Assessment & Plan: history of TIA. 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 Could consider increasing sliding scale if further hyperglycemia. Colace BID and will add Miralax daily for bowel motivation Continue with Daily Vit B12 IM through 07/29, then weekly for 1 month, then monthly. Methylmalonic acid is 0.19 INR today 2.31 and Coumadin management as per pharmacy dosing Continue to work with PT/OT for strengthening of lower extremities Code Status Full Code Hospital Course Summary Disclaimer The hospital course summary below is not to be considered part of the above Progress Note. Hospital Course Summary 07/23-Niko Improved functional capacity. Continue therapies; may benefit from speech therapy for cognitive evaluation although I suspect he would be resistant. Met with Dr. Fox yesterday, full note pending but patient reports he does not believe further psychiatric care needed. Blood sugars moderately elevated, single-dose Lantus ordered for today and Amaryl dose return to 2 mg daily. Suspect blood sugars will improve with increasing activity and prednisone taper. B-12 initiated several days ago for B-12 deficiency, methylmalonic acid pending. INR dropping back into daily therapeutic range, warfarin resumed at 3 mg today. Continue to monitor. Will attempt to clarify with patient or PCP when patient's DVT/PE was an indication for prolonged therapy. 07/28/16 Continue to monitor blood sugars.this morning was the final dose of prednisone. Expect that blood sugars may decrease . Continue with Daily Vit B12 IM through 07/29, then weekly for 1 month, then monthly. Methylmalonic acid is 0.19 Which is normal. continue mirtazapine at current dose. INR today 2.21 and Coumadin management as per pharmacy dosing Continue to work with PT/OT Planning for home evaluation today by PT. 07/30/16 Will continue to monitor blood sugars on current regimen of Amaryl, Metformin and Sliding scale Humalog. Could consider increasing sliding scale if further hyperglycemia. Colace BID and will add Miralax daily for bowel motivation Continue with Daily Vit B12 IM through 07/29, then weekly for 1 month, then monthly. Methylmalonic acid is 0.19 INR today 2.31 and Coumadin management as per pharmacy dosing Continue to work with PT/OT for strengthening of lower extremities VALERIE MCCLURE APRN Jul 30, 2016 09:33
[2016-07-30] MEDS: INSULIN LISPRO 100 UNIT/ML SQ PRN ×2 (12:13→20:33)
[2016-07-30] MEDS: WARFARIN 4 MG TABLET PO SCH (12:26)
[2016-07-30 15:51] VITALS: BP 96/58; PULSE 79; RESP 24; TEMP 98.7; O2SAT 94
--- NOTE | 2016-07-30 16:23 | PNPDOC ---
IRU Subjective Date DATE: 07/30/16 TIME: 16:19 Subjective Home visit sunday with PT. Report from PT tomorrow. He is still feeling too weak to leave and is frustrated he has not become stronger more quickly. IRU Objective Vital Signs Vital signs Vital Signs Date Time Temp Pulse Resp B/P Pulse Ox O2 Delivery O2 Flow Rate FiO2 07/30/16 15:51 98.7 79 24 96/58 94 Room Air Telemetry Rhythm: Sinus Rhythm Height (Feet): 6 Height (Inches): 3.00 Weight (Kilograms): 114.400 General General Appearance: Alert, Orientated x 2 Respiratory (Brief) Respiratory: FOUND: clear all haley, equal bilaterally Cardiovascular (Brief) Cardiac: FOUND: regular rate, regular rhythm Capillary Refill: <2 sec Laboratory Laboratory Laboratory Tests Test 07/28/16 21:02 07/29/16 05:45 07/29/16 06:37 07/29/16 10:23 Glucometer 232mg/dL 161mg/dL 258mg/dL Prothromb Time International Ratio 2.31 Test 07/29/16 14:39 07/29/16 14:49 07/29/16 15:23 07/29/16 20:37 Glucometer 486mg/dL 173mg/dL 166mg/dL 216mg/dL Test 07/30/16 06:06 07/30/16 11:17 07/30/16 14:10 Glucometer 155mg/dL 216mg/dL 142mg/dL Assessment & Plan Problems: (1) Bilateral lumbar radiculopathy Assessment & Plan: Continued pain limiting activity. Will cont with PT and OT in am. (2) Diabetic neuropathy Status: Chronic Qualifiers: Diabetes mellitus type: type 2 Assessment & Plan: BGM managed by hospitalist. He has hx of poorly controlled sugars. He feels better when slightly more active and is distracted from pain.Cont per plan. (3) Vitamin B12 deficiency Status: Acute Assessment & Plan: managed by medical. (4) Non-insulin dependent type 2 diabetes mellitus Status: Chronic Assessment & Plan: Managed by medical. (5) Generalized muscle weakness Status: Acute Assessment & Plan: Some improvement has been noted, Cont PT and OT. Review Home safety eval and d/c plan tomorrow. Assessment DVT Prophylaxis: AIDEN Benitez Code Status Full Code Interventions to Obtain Goals PT Treatment Plan: Therapeutic Exercise, Gait Training, Functional Activities , Patient/Family Education, Balance/Proprioception OT Treatment Plan: ADL's (basic care), Ther. Exercise for ADL's, UE Functional Training, Balance Training, Pt./Family Education, IADL's Hospital Course Summary Disclaimer The hospital course summary below is not to be considered part of the above Progress Note. Hospital Course Summary 07/23-Niko Improved functional capacity. Continue therapies; may benefit from speech therapy for cognitive evaluation although I suspect he would be resistant. Met with Dr. Fox yesterday, full note pending but patient reports he does not believe further psychiatric care needed. Blood sugars moderately elevated, single-dose Lantus ordered for today and Amaryl dose return to 2 mg daily. Suspect blood sugars will improve with increasing activity and prednisone taper. B-12 initiated several days ago for B-12 deficiency, methylmalonic acid pending. INR dropping back into daily therapeutic range, warfarin resumed at 3 mg today. Continue to monitor. Will attempt to clarify with patient or PCP when patient's DVT/PE was an indication for prolonged therapy. 07/28/16 Continue to monitor blood sugars.this morning was the final dose of prednisone. Expect that blood sugars may decrease . Continue with Daily Vit B12 IM through 07/29, then weekly for 1 month, then monthly. Methylmalonic acid is 0.19 Which is normal. continue mirtazapine at current dose. INR today 2.21 and Coumadin management as per pharmacy dosing Continue to work with PT/OT Planning for home evaluation today by PT. 07/30/16 Will continue to monitor blood sugars on current regimen of Amaryl, Metformin and Sliding scale Humalog. Could consider increasing sliding scale if further hyperglycemia. Colace BID and will add Miralax daily for bowel motivation Continue with Daily Vit B12 IM through 07/29, then weekly for 1 month, then monthly. Methylmalonic acid is 0.19 INR today 2.31 and Coumadin management as per pharmacy dosing Continue to work with PT/OT for strengthening of lower extremities FANG MENJIVAR MD Jul 30, 2016 16:22
--- NOTE | 2016-07-30 16:39 | NUR ---
Shift summary Patient ambulating in main nix and through center court yard using FWW, gait belt stand by assist in main nix and min assist through the center courtyard due to uneven surface. Patient gait steady. Transfers with gait belt, stand by assist. Shower with set up assist. Dressing upper and lower extremities with set up assist. Grooming with set up assist. Wears glasses, feeds self meals. Takes medications whole. Patient did exercises therapy had suggested he do. Denies discomfort this shift. Required 2 units sliding scale insulin at 1000 this a.m. for BGM of 216.
[2016-07-30 20:00] VITALS: BP 113/63; PULSE 77; RESP 18; TEMP 98.6; O2SAT 99
[2016-07-30] MEDS: MILK OF MAGNESIA 30 ML SUSP PO PRN (20:18)
[2016-07-30] MEDS: MIRTAZAPINE 15 MG TABLET PO SCH (20:18)
[2016-07-30 20:30] VITALS: PULSE 77; RESP 18
--- NOTE | 2016-07-30 22:46 | NUR ---
Chart Check 24 hour chart check completed
[2016-07-31 05:28] LABS: INR 2.13 (0.76-1.04); PROTHROMBIN TIME 23.2 SEC (9.31-12.49)
--- NOTE | 2016-07-31 06:29 | NUR ---
Summary Trevon is alert and oriented x three. He visits easily with staff . Appropriate use of call light.Able to make his needs known.He ambulates and transfers with w gait belt and standby assist. He is able to get his feet into and out of bed on his own. He denies pain. He sleeps in his bed with SR up x two and bed alarms intact. He is continent of bladder. He wears his own underwear and manages his own clothes and hygiene when toileting .He voids frequently . He takes his meds whole. His bgm last hs was 237 and supplemental insulin was given . This am his bgm was 151 and a four oz orangejuice was placed at his bedside for him to sip on . He reports no adverse symptoms.
[2016-07-31 08:00] VITALS: BP 100/67; PULSE 75; RESP 20; TEMP 98; O2SAT 93
[2016-07-31] MEDS: DOCUSATE SODIUM 100 MG CAPSULE PO SCH ×2 (08:46→20:20)
[2016-07-31] MEDS: GLIMEPIRIDE 2 MG TABLET PO SCH (08:46)
[2016-07-31] MEDS: METFORMIN 1,000 MG TABLET PO SCH ×2 (08:46→17:35)
[2016-07-31] MEDS: MILK OF MAGNESIA 30 ML SUSP PO PRN (08:46)
--- NOTE | 2016-07-31 10:35 | NUR ---
WARFARIN CONSULT S: 76 y/o M on warfarin for extended secondary DVT prophylaxis. Home dose is 5 mg daily. Goal INR 2-3. O: Date INR Warfarin Dose 07/20 2.72 5 mg 07/21 3.78 Held 07/22 3.93 Hold 07/23 3.00 3 mg 07/24 2.68 3 mg 07/25 2.61 3 mg 07/26 2.58 3 mg 07/27 2.28 4 mg 07/28 2.21 4 mg 07/29 2.31 4 mg daily. 07/30 ---- " " " " 07/31 2.13 " " " " A/P: The INR is therapeutic. warfarin 4 mg PO daily ordered. INR Q Sunday and . The pharmacy will continue to monitor & make adjustments accordingly. Thank you for the consult, Darrin Castle RPh.
[2016-07-31] MEDS: INSULIN LISPRO 100 UNIT/ML SQ PRN (10:36)
[2016-07-31] MEDS: WARFARIN 4 MG TABLET PO SCH (12:12)
[2016-07-31 16:01] VITALS: BP 131/67; PULSE 80; RESP 18; TEMP 98; O2SAT 96
[2016-07-31] MEDS: ACETAMINOPHEN 325 MG TABLET PO PRN (16:07)
--- NOTE | 2016-07-31 19:08 | NUR ---
Shift summary Alert and oriented x3. Ambulating with FWW, gait belt, stand by assist. Transfers with stand by assist. Tylenol this afternoon for headache. Able to dress self with set up, bathing with set up. Continent of bowel and bladder. Large BM this shift. Toileting and hygeine Mod I. Wears own underwear. Used cane with therapy today.
[2016-07-31] MEDS: MIRTAZAPINE 15 MG TABLET PO SCH (20:20)
[2016-07-31 20:58] VITALS: BP 87/48; PULSE 78; RESP 20; TEMP 98.4; O2SAT 92
--- NOTE | 2016-07-31 21:28 | PNPDOC ---
IRU Subjective Date DATE: 07/31/16 TIME: 21:25 Subjective Cooperated withPT and OT today, increased overall distance travelled. IRU Objective Vital Signs Vital signs Vital Signs Date Time Temp Pulse Resp B/P Pulse Ox O2 Delivery O2 Flow Rate FiO2 07/31/16 20:58 98.4 78 20 87/48 92 Room Air Telemetry Rhythm: Sinus Rhythm Height (Feet): 6 Height (Inches): 3.00 Weight (Kilograms): 114.400 General General Appearance: Alert, Orientated x 2 Respiratory (Brief) Respiratory: FOUND: clear all haley, equal bilaterally Cardiovascular (Brief) Cardiac: FOUND: regular rate, regular rhythm Capillary Refill: <2 sec Laboratory Laboratory Laboratory Tests Test 07/30/16 06:06 07/30/16 11:17 07/30/16 14:10 07/30/16 20:25 Glucometer 155mg/dL 216mg/dL 142mg/dL 237mg/dL Test 07/31/16 04:52 07/31/16 06:06 07/31/16 10:10 07/31/16 14:17 Prothromb Time International Ratio 2.13 Glucometer 151mg/dL 214mg/dL 120mg/dL Test 07/31/16 20:20 Glucometer 198mg/dL Assessment & Plan Problems: (1) Bilateral lumbar radiculopathy Assessment & Plan: Pt worked with PT and OT today, Cont with current plan of care. Improving FIM scores. Reeval on sunday. (2) Diabetic neuropathy Status: Chronic Qualifiers: Diabetes mellitus type: type 2 Assessment & Plan: Increased activity helping with pain overall. Cont with PT and OT. (3) Vitamin B12 deficiency Status: Acute Assessment & Plan: Medical to manage (4) Non-insulin dependent type 2 diabetes mellitus Status: Chronic Assessment & Plan: Medical to manage. (5) Generalized muscle weakness Status: Acute Assessment & Plan: Improving with PT and OT. Pt is increasing strength, albeit more slowly than he wished. Assessment Code Status Full Code Interventions to Obtain Goals PT Treatment Plan: Therapeutic Exercise, Gait Training, Functional Activities , Patient/Family Education, Balance/Proprioception OT Treatment Plan: ADL's (basic care), Ther. Exercise for ADL's, UE Functional Training, Balance Training, Pt./Family Education, IADL's Hospital Course Summary Disclaimer The hospital course summary below is not to be considered part of the above Progress Note. Hospital Course Summary 07/23-Niko Improved functional capacity. Continue therapies; may benefit from speech therapy for cognitive evaluation although I suspect he would be resistant. Met with Dr. Fox yesterday, full note pending but patient reports he does not believe further psychiatric care needed. Blood sugars moderately elevated, single-dose Lantus ordered for today and Amaryl dose return to 2 mg daily. Suspect blood sugars will improve with increasing activity and prednisone taper. B-12 initiated several days ago for B-12 deficiency, methylmalonic acid pending. INR dropping back into daily therapeutic range, warfarin resumed at 3 mg today. Continue to monitor. Will attempt to clarify with patient or PCP when patient's DVT/PE was an indication for prolonged therapy. 07/28/16 Continue to monitor blood sugars.this morning was the final dose of prednisone. Expect that blood sugars may decrease . Continue with Daily Vit B12 IM through 07/29, then weekly for 1 month, then monthly. Methylmalonic acid is 0.19 Which is normal. continue mirtazapine at current dose. INR today 2.21 and Coumadin management as per pharmacy dosing Continue to work with PT/OT Planning for home evaluation today by PT. 07/30/16 Will continue to monitor blood sugars on current regimen of Amaryl, Metformin and Sliding scale Humalog. Could consider increasing sliding scale if further hyperglycemia. Colace BID and will add Miralax daily for bowel motivation Continue with Daily Vit B12 IM through 07/29, then weekly for 1 month, then monthly. Methylmalonic acid is 0.19 INR today 2.31 and Coumadin management as per pharmacy dosing Continue to work with PT/OT for strengthening of lower extremities FANG MENJIVAR MD Jul 31, 2016 21:28
[2016-07-31 23:14] VITALS: PULSE 78; RESP 16
--- NOTE | 2016-08-01 05:05 | NUR ---
SUMMARY Trevon has been up to bathroom at least hourly and sometimes more frequently. He tried sitting down to void, and then also was able to void more in urinal. He has seemed quite down and depressed, but did open up and talked about missing his . Son was here before patient went to bed. He talked about patient needing something to engage him once he returns home. Patient did visit with me about his love of fishing and all the equipment he has. Ambulated with supervision to bathroom. Required min assist to stand from bed and toilet. Continent of bowel and bladder.
[2016-08-01 08:00] VITALS: PULSE 78; RESP 16
[2016-08-01] MEDS: GLIMEPIRIDE 2 MG TABLET PO SCH (08:09)
[2016-08-01] MEDS: DOCUSATE SODIUM 100 MG CAPSULE PO SCH ×2 (08:09→20:41)
[2016-08-01] MEDS: METFORMIN 1,000 MG TABLET PO SCH ×2 (08:10→17:18)
[2016-08-01 09:37] VITALS: BP 104/64; PULSE 76; RESP 16; TEMP 98.1; O2SAT 93
--- NOTE | 2016-08-01 10:11 | PNPDOC ---
LOTTIE PUENTE 08/01/16 0954: Subjective Date DATE: 08/01/16 TIME: 09:50 Subjective Mr. Henry is seen today in follow up for his generalized debility, hyperglycemia and B12 deficiency. He is seen while eating breakfast in the day room and denies any complaints. He denies any chest pain, shortness of breath, abdominal pain, nausea, vomiting or dysuria. Nursing notes were reviewed and indicate that he has been urinating frequently and continues to have a depressed mood. He expresses an eagerness for discharge, stating that he is ready to go home. His appetite is good and his bowels are moving. On exam, he is sitting in his chair and has a depressed affect. He is alert and orientated x 3. Cardiac exam reveals regular rate and rhythm. Lungs are clear to auscultation. Abdomen is soft, nontender with active bowel sounds. 1+ edema noted to bilateral lower extremities with AIDEN hose in place. 2+ pedal pulses bilaterally. Vital signs stable with temp 98.1, heart rate 76, respiratory rate 16 and pulse ox 93% on room air. Blood pressure has been on the lower end of normal at 104/64. He denies any dizziness or lightheadedness. Objective Vital Signs Vital signs Vital Signs Date Time Temp Pulse Resp B/P Pulse Ox O2 Delivery O2 Flow Rate FiO2 08/01/16 09:37 98.1 76 16 104/64 93 Room Air Height (Feet): 6 Height (Inches): 3.00 Weight (Kilograms): 114.400 General General Appearance: Alert, Orientated x 3, Cooperative, No Acute Distress Comments depressed affect Eyes (Brief) Eyes: FOUND: PERRL, NOT FOUND: scleral icterus ENMT (Brief) ENMT: FOUND: mucosa moist Neck (Brief) Neck: FOUND: midline, NOT FOUND: nuchal rigidity, tracheal deviation Respiratory (Brief) Respiratory: FOUND: clear all haley, equal bilaterally, symmetrical, NOT FOUND : rales, wheezes Cardiovascular (Brief) Cardiac: FOUND: pedal edema, regular rate, regular rhythm Abdomen (Brief) Abdominal: FOUND: BS normo active x4, soft, NOT FOUND: distended, tender Extremities (Brief) Extremity : Side: Bilateral Extremity: leg Extremity Finding: FOUND: edema, NOT FOUND: deformity Comments AIDEN hose in place Musculoskeletal (Brief) Musculoskeletal: FOUND: extremities move equally, NOT FOUND: deformity, loss of motion Integumentary (Brief) Integumentary: FOUND: dry, pink, warm Comments afebrile Neurologic (Brief) Neurological: NOT FOUND: facial droop Psychiatric (Brief) Psychiatric: FOUND: alert, attentive, oriented Comments depressed affect. Assessment & Plan Problems: (1) Debility Status: Acute (2) Generalized muscle weakness Status: Acute (3) Vitamin B12 deficiency Status: Acute Assessment & Plan: B 12 injections initiated prior to transfer to rehabilitation; methylmalonic acid pending as of 07/25 (4) Diabetic neuropathy Status: Chronic Qualifiers: Diabetes mellitus type: type 2 (5) Non-insulin dependent type 2 diabetes mellitus Status: Chronic Assessment & Plan: A1c 6.5 on 07/20/16 (6) Anemia Status: Chronic Qualifiers: Anemia type: B12 deficiency Vitamin B12 deficiency anemia type: unspecified B12 deficiency Qualified Codes: D51.9 - Vitamin B12 deficiency anemia, unspecified (7) Protein-calorie malnutrition, moderate Status: Acute Assessment & Plan: present on admission - prealbumin 8.2. (8) Depression Status: Chronic Assessment & Plan: Mirtazapine initiated approximately 07/15/16 per PCP (9) Chronic anticoagulation Status: Chronic Assessment & Plan: warfarin treatment for chronic DVT. (10) TIA (transient ischemic attack) Status: Chronic Assessment & Plan: history of TIA. 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 Overall, patient appears to be doing well medically. Continue rehabilitation per Dr. Pang for strengthening and increasing functional abilities. Blood sugars slightly improved though remain elevated around 200. Will continue to monitor blood sugars closely and continue current regimen of Amaryl, Metformin and Sliding scale Humalog. Could consider increasing sliding scale if further hyperglycemia. Anticipate improved blood sugars with increasing activities and tapering of prednisone. Continue Colace BID and Miralax daily for bowel motivation. Continue with weekly Vit B12 IM for 1 month, then monthly. Methylmalonic acid is 0.19 (WNL) Nursing noted frequent urination. Will check UA and post-void residual now. He continues to have a depressed mood but refused additional psychiatric services per prior notes. Continue to monitor mood and for signs of worsening depression. Encourage participation in activities. Home visit went well and anticipate discharge in near future. Will recheck CBC and BMP in AM to monitor blood counts, electrolytes and renal function. Code Status Full Code Hospital Course Summary Disclaimer The hospital course summary below is not to be considered part of the above Progress Note. Hospital Course Summary 07/23-Niko Improved functional capacity. Continue therapies; may benefit from speech therapy for cognitive evaluation although I suspect he would be resistant. Met with Dr. Fox yesterday, full note pending but patient reports he does not believe further psychiatric care needed. Blood sugars moderately elevated, single-dose Lantus ordered for today and Amaryl dose return to 2 mg daily. Suspect blood sugars will improve with increasing activity and prednisone taper. B-12 initiated several days ago for B-12 deficiency, methylmalonic acid pending. INR dropping back into daily therapeutic range, warfarin resumed at 3 mg today. Continue to monitor. Will attempt to clarify with patient or PCP when patient's DVT/PE was an indication for prolonged therapy. 07/28/16 Continue to monitor blood sugars.this morning was the final dose of prednisone. Expect that blood sugars may decrease . Continue with Daily Vit B12 IM through 07/29, then weekly for 1 month, then monthly. Methylmalonic acid is 0.19 Which is normal. continue mirtazapine at current dose. INR today 2.21 and Coumadin management as per pharmacy dosing Continue to work with PT/OT Planning for home evaluation today by PT. 07/30/16 Will continue to monitor blood sugars on current regimen of Amaryl, Metformin and Sliding scale Humalog. Could consider increasing sliding scale if further hyperglycemia. Colace BID and will add Miralax daily for bowel motivation Continue with Daily Vit B12 IM through 07/29, then weekly for 1 month, then monthly. Methylmalonic acid is 0.19 INR today 2.31 and Coumadin management as per pharmacy dosing Continue to work with PT/OT for strengthening of lower extremities 08/01/16: Mirakian. Overall, patient appears to be doing well medically. Continue rehabilitation per Dr. Pang for strengthening and increasing functional abilities. Blood sugars slightly improved though remain elevated around 200. Will continue to monitor blood sugars closely and continue current regimen of Amaryl, Metformin and Sliding scale Humalog. Could consider increasing sliding scale if further hyperglycemia. Anticipate improved blood sugars with increasing activities and tapering of prednisone. Continue Colace BID and Miralax daily for bowel motivation. Continue with weekly Vit B12 IM for 1 month, then monthly. Methylmalonic acid is 0.19 (WNL) Nursing noted frequent urination. Will check UA and post-void residual now. He continues to have a depressed mood but refused additional psychiatric services per prior notes. Continue to monitor mood and for signs of worsening depression. Encourage participation in activities. Home visit went well and anticipate discharge in near future. Will recheck CBC and BMP in AM to monitor blood counts, electrolytes and renal function. KASH NEWMAN MD 08/01/16 1924: Assessment & Plan Plan/Intensity of Service Have independently interviewed and examined pt. Chart reviewed. Case discussed with my PA. Above care plan developed with my supervision; agree with above. Improving. Getting more strength to right lower ext. Muscles sore from therapy. Breathing well. Bowel function slow, but had stool yesterday. Lungs: clear CV: regular MSE; awake alert appropriate Plan: Encourage continuation of therapy to maximize functional status. Could add additional 2mg Amaryl with lunch to help sugar control - watch for hypoglycemia. Hope for discharge in near future. LOTTIE PUENTE Aug 01, 2016 09:54 KASH NEWMAN MD Aug 01, 2016 19:24
--- NOTE | 2016-08-01 12:11 | NUR ---
CM SPOKE WITH PT. REVIEWED DC PLAN OF HOME, AND THAT A POSSIBLE DC DATE MIGHT BE THE END OF THIS WEEK OR THIS WEEKEND. PT SAID THAT FEELS TOO LONG, THAT HE WOULD RATHER DC SOONER. HE SAID HE WANTS TO RETURN HOME SO HE CAN WALK AROUND HIS OWN HOUSE. HE SAID HE FEELS READY FOR HOME. DISCUSSED HOME HEALTH THROUGH [employer], AND HE WAS AGREEABLE TO THIS. EXPLAINED THAT THIS WORKER WILL CALL HIS DOCTORS' OFFICE TO TRY AND SET IT UP FROM HERE. DISCUSSED MEALS ON WHEELS; REVIEWED THAT THE NEXT STEP IS TO CALL FOR AN INHOME ASSESSMENT, AND THAT THIS WORKER COULD ASSIST WITH THIS ONCE A DC DATE IS KNOWN. Addendum: 08/01/16 at 1223 by MERLENE KELLY Amended: Links added.
--- NOTE | 2016-08-01 13:14 | NUR ---
CALLI CALLED DR. NYE'S OFFICE, SPOKE WITH YARITZA. ASKED IF THIS WORKER CAN ARRANGE HOME HEALTH FROM THE HOSPITAL, AND SHE SAID SHE WILL RELAY THIS TO THE RN AND ASK.
[2016-08-01] MEDS: WARFARIN 4 MG TABLET PO SCH (13:35)
[2016-08-01 13:56] LABS: BLOOD, URINE NEGATIVE (NEGATIVE); COLOR,URINE YELLOW (YELLOW); LEUKOCYTE ESTERASE ,URINE NEGATIVE (NEGATIVE); NITRITE,URINE NEGATIVE (NEGATIVE); UROBILINOGEN,URINE 0.2 EU/DL (NORMAL)
--- NOTE | 2016-08-01 16:30 | NUR ---
CM CALL FROM [facility] NURSE WITH DR. NYE; SHE SAID WILL NOT SIGN HOME HEALTH ORDERS UNLESS PT IS SEEN IN HIS OFFICE. THIS WORKER IS UNABLE TO ARRANGE HOME HEALTH FROM [facility].
[2016-08-01 16:46] VITALS: BP 117/65; PULSE 74; RESP 16; TEMP 99.7; O2SAT 97
[2016-08-01] MEDS: ACETAMINOPHEN 325 MG TABLET PO PRN (17:17)
--- NOTE | 2016-08-01 17:44 | NUR ---
Shift summary Patient ambulating with FWW, gait belt stand by assist with nursing. Has been working with therapy with [facility] antwon. Patient transfers with stand by assist. Wears glasses, takes anti depressant. Patient mood is depressed. Wants to go home. Continent of bowel and bladder, able to manage clothing with stand by assist for toileting. Takes medications whole. Feeds self. Requested tylenol after working with therapy for "muscle aches". UA sent to lab today with results negative. Post void residual 45 ml. Son here to see his dad samara and wanting info on discharge date. Told him of team meeting tomorrow and will know better timeline for discharge then.
[2016-08-01] MEDS ORDERED: MAG-AL + SIM LIQUID 30 ML UDC PO PRN (20:30)
[2016-08-01] MEDS: MIRTAZAPINE 15 MG TABLET PO SCH (20:41)
--- NOTE | 2016-08-01 20:42 | NUR ---
PRN Patient reports a little indigestion after supper. Maalox given per SO
--- NOTE | 2016-08-01 23:50 | NUR ---
STATUS Patient has been up to bathroom 1-2 x per hour since start of shift. He just voided and walked to bed and feels the urge to go again at this time. He was bladder scanned earlier - PVR 249. Will scan again. UA was negative for infection. Patient gets only short naps of sleep all night long due to frequency of urination or urge.
[2016-08-02 01:10] VITALS: BP 124/67; PULSE 75; RESP 20; TEMP 98.2; O2SAT 96
--- NOTE | 2016-08-02 01:26 | NUR ---
EDUCATION RE: bladder scanning PVR, and findings. Patient is exhausted from lack of sleep and frequent ambulation to bathroom. Support provided.
--- NOTE | 2016-08-02 05:03 | NUR ---
CHART CHECK 24hr chart check completed.
[2016-08-02 05:23] LABS: BASOPHILS % (AUTO) 0.3 % (0-2); EOSINOPHILS # (AUTO) 0.5 T/MM3 (0-0.5); HCT - HEMATOCRIT 35.7 % (41-53); HGB - HEMOGLOBIN 11.6 GM/DL (13.5-17.5); IMMATURE GRANULOCYTE # (AUTO) 0.03 T/MM3 (0.00-0.03); IMMATURE GRANULOCYTE % (AUTO) 0.3 % (0.0-0.5); LYMPHOCYTES # (AUTO) 1.7 T/MM3 (1-4.8); LYMPHOCYTES % (AUTO) 16.9 % (23-45); MEAN CORPUSCULAR HGB CONC(MCHC 32.5 GM/DL (31-37); MEAN CORPUSCULAR VOLUME 89.3 UM3 (80-100); MEAN PLATELET VOLUME 9.7 UM3 (9.4-12.4); MONOCYTES % (AUTO) 10.1 % (0-9.0); NEUTROPHILS #(AUTO)-ABSOLUTE 6.7 T/MM3 (1.8-7.7); NEUTROPHILS % (AUTO) 67.4 % (33-66)
[2016-08-02 05:34] LABS: ANION GAP 8 MEQ/L (5-15); BUN/CREATININE RATIO 23 RATIO (6-26); CALCIUM 8.4 MG/DL (8.4-10.2); CHLORIDE 103 MEQ/L (98-107); CO2 - CARBON DIOXIDE 27 MEQ/L (22-30); CREATININE 0.7 MG/DL (0.8-1.5); GLOMERULAR FILTRATION RATE 110; GLUCOSE 152 MG/DL (75-110); POTASSIUM 4.4 MEQ/L (3.6-5); SODIUM 138 MEQ/L (134-144)
[2016-08-02 08:00] VITALS: PULSE 80; RESP 18
[2016-08-02 08:04] VITALS: BP 114/65; PULSE 80; RESP 18; TEMP 98.2; O2SAT 95
[2016-08-02] MEDS: DOCUSATE SODIUM 100 MG CAPSULE PO SCH ×2 (08:33→20:30)
[2016-08-02] MEDS: GLIMEPIRIDE 2 MG TABLET PO SCH ×2 (08:33→12:16)
[2016-08-02] MEDS: METFORMIN 1,000 MG TABLET PO SCH ×2 (08:34→17:59)
[2016-08-02] MEDS: MILK OF MAGNESIA 30 ML SUSP PO PRN (09:26)
--- NOTE | 2016-08-02 10:03 | PNPDOC ---
Subjective Date DATE: 08/02/16 TIME: 09:35 Subjective Trevon requests to visit with me this morning in regards to his nocturnal urinary frequency. He reports that symptoms are much worse at night. He is getting up numerous times and feels that he only voids small. He voices concern and requests to see a Urologist today. Discussed that this will likely need to be a outpatient follow up. UA was obtained yesterday that was negative for acute infection. Denies having pain or feeling short of breath. Appetite is fair. Affect continues to be flat. Vital signs stable. Objective Vital Signs Vital signs Vital Signs Date Time Temp Pulse Resp B/P Pulse Ox O2 Delivery O2 Flow Rate FiO2 08/02/16 08:04 98.2 80 18 114/65 95 Room Air Height (Feet): 6 Height (Inches): 3.00 Weight (Kilograms): 114.400 General General Appearance: Alert, Orientated x 3, Cooperative, No Acute Distress Eyes (Brief) Eyes: FOUND: EOMI ENMT (Brief) ENMT: FOUND: mucosa moist, normal dentition, NOT FOUND: pharnyx erythema Neck (Brief) Neck: FOUND: midline, NOT FOUND: adenopathy, carotid bruits, tracheal deviation Respiratory (Brief) Respiratory: FOUND: clear all haley, equal bilaterally, NOT FOUND: wheezes Cardiovascular (Brief) Cardiac: FOUND: regular rate, regular rhythm, NOT FOUND: murmur, pedal edema Capillary Refill: <2 sec Abdomen (Brief) Abdominal: FOUND: BS normo active x4, soft, NOT FOUND: distended, tender (Brief) Comments Urinary frequency Lymphatic (Brief) Lymphatic: NOT FOUND: adenopathy Musculoskeletal (Brief) Musculoskeletal: NOT FOUND: tenderness Integumentary (Brief) Integumentary: FOUND: dry, pink, warm Neurologic (Brief) Neurological: FOUND: cranial 2-12 intact Psychiatric (Brief) Psychiatric: FOUND: alert, attentive, normal affect, oriented Laboratory Laboratory Laboratory Tests 08/02/16 04:13 Laboratory Tests 08/02/16 04:13 Assessment & Plan Problems: (1) Debility Status: Acute (2) Generalized muscle weakness Status: Acute (3) Vitamin B12 deficiency Status: Acute Assessment & Plan: B 12 injections initiated prior to transfer to rehabilitation; methylmalonic acid pending as of 07/25 (4) Diabetic neuropathy Status: Chronic Qualifiers: Diabetes mellitus type: type 2 (5) Non-insulin dependent type 2 diabetes mellitus Status: Chronic Assessment & Plan: A1c 6.5 on 07/20/16 (6) Anemia Status: Chronic Qualifiers: Anemia type: B12 deficiency Vitamin B12 deficiency anemia type: unspecified B12 deficiency Qualified Codes: D51.9 - Vitamin B12 deficiency anemia, unspecified (7) Protein-calorie malnutrition, moderate Status: Acute Assessment & Plan: present on admission - prealbumin 8.2. (8) Depression Status: Chronic Assessment & Plan: Mirtazapine initiated approximately 07/15/16 per PCP (9) Chronic anticoagulation Status: Chronic Assessment & Plan: warfarin treatment for chronic DVT. (10) TIA (transient ischemic attack) Status: Chronic Assessment & Plan: history of TIA. 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 IPSS score is 24 indicating severe symptoms associated with BPH. Post-Void bladder scan done overnight indicated 327ML. Will start Flomax 0.4mg HS daily. Urologist apt made with Dr Haque at [facility] on 08/07/16 at 3:30. Otherwise Continue to encourage work with PT/OT Continues to have depressed affect, Continue on Remeron Monitor blood sugars. Fasting BGM this morning 152. Continue with Metformin, Amaryl and sliding scale Humalog. Will discuss discharge plans with CM and Dr Pang later today at team meeting Code Status Full Code Hospital Course Summary Disclaimer The hospital course summary below is not to be considered part of the above Progress Note. Hospital Course Summary 07/23-Niko Improved functional capacity. Continue therapies; may benefit from speech therapy for cognitive evaluation although I suspect he would be resistant. Met with Dr. Fox yesterday, full note pending but patient reports he does not believe further psychiatric care needed. Blood sugars moderately elevated, single-dose Lantus ordered for today and Amaryl dose return to 2 mg daily. Suspect blood sugars will improve with increasing activity and prednisone taper. B-12 initiated several days ago for B-12 deficiency, methylmalonic acid pending. INR dropping back into daily therapeutic range, warfarin resumed at 3 mg today. Continue to monitor. Will attempt to clarify with patient or PCP when patient's DVT/PE was an indication for prolonged therapy. 07/28/16 Continue to monitor blood sugars.this morning was the final dose of prednisone. Expect that blood sugars may decrease . Continue with Daily Vit B12 IM through 07/29, then weekly for 1 month, then monthly. Methylmalonic acid is 0.19 Which is normal. continue mirtazapine at current dose. INR today 2.21 and Coumadin management as per pharmacy dosing Continue to work with PT/OT Planning for home evaluation today by PT. 07/30/16 Will continue to monitor blood sugars on current regimen of Amaryl, Metformin and Sliding scale Humalog. Could consider increasing sliding scale if further hyperglycemia. Colace BID and will add Miralax daily for bowel motivation Continue with Daily Vit B12 IM through 07/29, then weekly for 1 month, then monthly. Methylmalonic acid is 0.19 INR today 2.31 and Coumadin management as per pharmacy dosing Continue to work with PT/OT for strengthening of lower extremities 08/01/16: Mirakian. Overall, patient appears to be doing well medically. Continue rehabilitation per Dr. Pang for strengthening and increasing functional abilities. Blood sugars slightly improved though remain elevated around 200. Will continue to monitor blood sugars closely and continue current regimen of Amaryl, Metformin and Sliding scale Humalog. Could consider increasing sliding scale if further hyperglycemia. Anticipate improved blood sugars with increasing activities and tapering of prednisone. Continue Colace BID and Miralax daily for bowel motivation. Continue with weekly Vit B12 IM for 1 month, then monthly. Methylmalonic acid is 0.19 (WNL) Nursing noted frequent urination. Will check UA and post-void residual now. He continues to have a depressed mood but refused additional psychiatric services per prior notes. Continue to monitor mood and for signs of worsening depression. Encourage participation in activities. Home visit went well and anticipate discharge in near future. Will recheck CBC and BMP in AM to monitor blood counts, electrolytes and renal function. 08/02/16 Reviewed I-PSS questioner indicating symptom severity with BPH. IPSS score is 24 indicating severe symptoms associated with BPH. Post-Void bladder scan done overnight indicated 327ML. Will start Flomax 0.4mg HS daily. Urologist apt made with Dr Haque at [facility] on 08/07/16 at 3:30. Otherwise Continue to encourage work with PT/OT Continues to have depressed affect, Continue on Remeron Monitor blood sugars. Fasting BGM this morning 152. Continue with Metformin, Amaryl and sliding scale Humalog. Will discuss discharge plans with CALLI and Dr Pang later today at team meeting VALERIE MCCLURE APRN Aug 02, 2016 09:41 VALEIRE MCCLURE APRN Aug 02, 2016 09:41
[2016-08-02] MEDS: INSULIN LISPRO 100 UNIT/ML SQ PRN (10:20)
--- NOTE | 2016-08-02 11:17 | NUR ---
CM SPOKE WITH PT. REVIEWED IM LETTER AND PT SIGNED; HE HAD NO QUESTIONS ABOUT IT. HE SAID HE WANTS TO DC SOON POSSIBLE. EXPLAINED TEAM MEETS TODAY AND WE MIGHT HAVE A SET DC DATE THEN. HE WAS ACCEPTABLE OF THIS. EXPLAINED PER DR. LOPEZ'S OFFICE, WE CANNOT SET UP HOME HEALTH DIRECTLY FROM HERE. HE WILL NEED TO HAVE A FACE TO FACE WITH DR. LOPEZ. HE GAVE PERMISSION TO UPDATE FAMILY ABOUT THIS. CALLED DR. LOPEZ'S OFFICE AGAIN, SPOKE WITH WILLIAM. ASKED IF WE COULD SET UP OUTPT PHYS THERAPY; SHE SAID DR. LOPEZ IS OUT OF THE OFFICE THIS WEEK AND BACK ON SUNDAY, SO SHE DOES NOT KNOW WHAT HE WOULD OR WOULD NOT AUTHORIZE.
[2016-08-02] MEDS: WARFARIN 4 MG TABLET PO SCH (12:16)
--- NOTE | 2016-08-02 14:24 | PDIRUTEAM ---
Multidisciplinary Team Meeting Nursing Hx Incontinence: No Bladder Goal: 7+ Complete [place] Y/N: No Bladder Continent or Incontine: Continent Incontinent Product Used: Patient's Own Underwear Cleaning Ability-Bladder: 6 Modified [place] Bladder Incontinence Managemen: 5 Supervision/Setup Bowel Goal: 6 Modified [place] Colostomy Y/N: No Bowel Incontinent/Continent: Continent Bowel Number of Accidents: 0 Number of times Incontinent of: 0 Cleaning Ability-Bowel: 7+ Complete [place] Toileting Ability: 4 Minimal Assistance Vital Signs Vital Signs Date Time Temp Pulse Resp B/P Pulse Ox O2 Delivery O2 Flow Rate FiO2 08/02/16 08:04 98.2 80 18 114/65 95 Room Air Current Medications Current Medications Medications (Trade) Dose Ordered Sig/Veronika Route PRN Reason Start Time Stop Time Status Last Admin Dose Admin Docusate Sodium (Colace) 100 mg BID PO 07/21/16 21:00 08/02/16 08:33 Acetaminophen (Tylenol Regular Strength) 650 mg Q5H PRN PO PAIN 07/21/16 15:30 08/01/16 17:17 Cyanocobalamin (Vit. B-12) 1,000 mcg DAILY IM 07/22/16 09:00 07/22/16 11:20 DC 07/22/16 09:48 Glimepiride (Amaryl) 1 mg WB PO 07/22/16 08:00 07/23/16 16:07 DC 07/23/16 08:58 Metformin HCl (Glucophage) 1,000 mg BIDWM PO 07/21/16 17:30 08/02/16 08:34 Mirtazapine (Remeron) 15 mg HS PO 07/21/16 22:00 08/01/16 20:41 Prednisone (PredniSONE) 10 mg WB PO 07/26/16 08:00 07/28/16 12:00 DC 07/28/16 08:51 Prednisone (PredniSONE) 20 mg WB PO 07/23/16 08:00 07/25/16 12:00 DC 07/25/16 08:54 Insulin Human Lispro (Humalog) SS PRN SQ 07/21/16 19:15 08/02/16 10:20 Cyanocobalamin (Vit. B-12) 1,000 mcg DAILY IM 07/23/16 09:00 07/29/16 08:59 DC 07/28/16 08:52 Glimepiride (Amaryl) 2 mg WB PO 07/24/16 08:00 08/01/16 19:07 DC 08/01/16 08:09 Warfarin Sodium (COUMADIN 3 mg) 3 mg NOON PO 07/24/16 12:00 07/24/16 12:30 DC 07/24/16 12:26 Warfarin Sodium (COUMADIN 3 mg) 3 mg NOON PO 07/25/16 12:00 07/25/16 12:30 DC 07/25/16 12:09 Warfarin Sodium (COUMADIN 3 mg) 3 mg NOON PO 07/26/16 12:00 07/26/16 12:30 DC 07/26/16 11:48 Warfarin Sodium (COUMADIN 4 mg) 4 mg NOON PO 07/27/16 12:00 07/27/16 12:15 DC 07/27/16 11:56 Warfarin Sodium (COUMADIN 4 mg) 4 mg NOON PO 07/28/16 12:00 07/28/16 12:15 DC 07/28/16 12:23 Warfarin Sodium (COUMADIN 4 mg) 4 mg NOON PO 07/29/16 12:00 08/02/16 12:16 Magnesium Hydroxide (Mom) 30 ml DAILY PRN PO CONSTIPATION 07/30/16 08:45 08/02/16 09:26 Glimepiride (Amaryl) 2 mg BIDBL PO 08/02/16 08:00 08/02/16 12:16 Al Hydroxide/Mg Hydroxide (Maalox) 30 ml Q3-4H PRN PO INDIGESTION 08/01/16 20:30 08/01/16 20:41 Physical Therapy Bed Transfer Ability: 5 Supervision/Setup Bed Transfer Assistance Needed: 1 Person Bed FIM Score Reason: sba Chair Transfer Ability: 5 Supervision/Setup Chair Transfer Assistance Need: 1 Person Chair FIM Score Reason: sba Overall Wheelchair Transfer Ab: 3 Moderate Assistance Wheelchair Transfer Assistance: 1 Person Overall Toilet / Commode Trans: 5 Supervision/Setup Ambulation Ability: 5 Supervision/Setup Ambulation Assistance Needed: 1 Person Walk FIM Score Reason: Pt demo amb SBA but is limited to < 150 ft. Ambulation Distance: 480 Comments IMS 5+ except chair transfer. No large losses of balance Depression fog affecting him. Occupational Therapy Grooming Ability: 6 Modified [place] Bathing Ability: 5 Supervision/Setup Upper Body Dressing Ability: 6 Modified [place] Lower Body Dressing Ability: 4 Minimal Assistance Lower Body Dressing Assistance: 1 Person Toileting Assistance Needed: 1 Person Toileting FIM Score Reason: sba Comments FIMS 6ish. Safety deteriorates when fatigued. Care Plan Condition at time of discharge: Fair IRU Discharge Disposition: Home Health Service Interventions/Goals Depression effecting his mood and focus. Urology appt set up outpatient. Must have face to face with PCP per pcp guidelines. barriers to d/c. Weakness, depression. FANG MENJIVAR MD Aug 02, 2016 14:24
[2016-08-02 15:51] VITALS: BP 106/64; PULSE 82; RESP 14; TEMP 99.4; O2SAT 95
--- NOTE | 2016-08-02 16:52 | NUR ---
DC ANTICIPATED FOR 08-03. THIS WORKER SPOKE WITH PT, AND SON BRICE WAS PRESENT. BOTH WERE IN AGREEMENT TO THE DC DATE. REVIEWED ROTP; PT AND BRICE AGREEABLE. REVIEWED MOW: BRICE SAID HE WILL CALL MOM (ATILIO) TOMORROW TO SCHEDULE A HOME VISIT. REVIEWED HOME HEALTH: EXPLAINED THAT THE DOCTOR HERE WOULD BE WILLING TO SIGN ORDERS, BUT BRICE SAID THEY HAVE BEEN WORKING WITH [facility], AND THEY WILL HAVE AN APPOINTMENT WITH DR. LOPEZ ON SUNDAY TO GET HH SERVICES STARTED. HE SAID HE DOES NOT NEED HOME HEALTH TO BE ARRANGED FROM HERE. HE SAID HE WILL BE HERE THROUGH SAT, AND HIS OTHER BROTHER WILL ALSO BE HERE TO ASSIST PT NEEDED. DME: THEY SAID PT DOES HAVE A WALKER AND GRAB BARS. THEY SAID THEY DID NOT HAVE ANY DME NEEDS. THEY HAD NO FURTHER QUESTIONS/NEEDS FOR THIS WORKER.
[2016-08-02 18:00] VITALS: BP 114/62; PULSE 74; RESP 16; TEMP 98.7; O2SAT 95
--- NOTE | 2016-08-02 18:28 | NUR ---
SHIFT SUMMARY PT HAS BEEN PLEASANT AND COOPERATIVE. PT AMBULATES WITH CANE AND GAIT BELT. PT WORKED WITH THERAPY TODAY. THIS AFTERNOON PT REPORTED HE WAS HAVING A HARD TIME. WHEN ASKED WHAT WAS THE MATTER HE SAID HE WASN'T GOING HOME TODAY. PT WAS REASSURED THAT DISCHARGE PLAN WAS BEING WORKED ON AND THAT MERLENE THE FINISH REPAIRER WOULD COME AND LET HIM KNOW HOW TEAM MEETING WENT THIS AFTERNOON. PT'S SON ALSO ASKED WHAT THE PLAN WAS. MERLENE WAS CALLED BY VALERIE MCCLURE APRN TO COME AND SPEAK WITH FAMILY. PT IS CURRENTLY RESTING IN RECLINER IN ROOM.
[2016-08-02] MEDS: MIRTAZAPINE 15 MG TABLET PO SCH (20:30)
[2016-08-02] MEDS ORDERED: TAMSULOSIN 0.4 MG CAPSULE PO SCH (22:00)
[2016-08-02 23:27] VITALS: PULSE 74; RESP 16
--- NOTE | 2016-08-03 04:28 | NUR ---
CHART CHECK 24 hr chart check completed.
--- NOTE | 2016-08-03 05:50 | NUR ---
SHIFT SUMMARY Trevon was up less frequently during this night. He slept for 2 hours at one stretch. When he awoke, he seemed anxious and stated he needed to get up, but then he realized he did not need to use the bathroom at that time. He reported dizziness x 1. Educated about potential side effects of new med - Flomax. Carenotes provided and reviewed with patient. He requested crackers at approx. 0520. Is excited to be returning home today. Ambulated with CGA due to report of some dizziness. No LOB. Continent of b/b. Trevon struggles with low surfaces when he needs to stand from them. He does well with bed raised. He reports that his son is installing grab bars in his bathroom at home and he feels confident he will be able to do transfers himself.
[2016-08-03 07:18] LABS: INR 2.66 (0.76-1.04)
[2016-08-03 07:20] VITALS: BP 102/57; PULSE 78; RESP 16; TEMP 98.5; O2SAT 94
[2016-08-03] MEDS ORDERED: GLIM2TAB PO (08:00)
[2016-08-03] MEDS ORDERED: WARF4TAB8 PO (08:00)
[2016-08-03] MEDS ORDERED: DOCU-168 PO (08:00)
[2016-08-03] MEDS ORDERED: TAMS0.4C47 PO (08:00)
[2016-08-03] MEDS: METFORMIN 1,000 MG TABLET PO SCH (08:46)
[2016-08-03] MEDS: GLIMEPIRIDE 2 MG TABLET PO SCH ×2 (08:47→12:09)
[2016-08-03] MEDS: DOCUSATE SODIUM 100 MG CAPSULE PO SCH (08:47)
--- NOTE | 2016-08-03 09:05 | NUR ---
WARFARIN CONSULT S: 76 y/o M on warfarin for extended secondary DVT prophylaxis. Home dose is 5 mg daily. Goal INR 2-3. O: Date INR Warfarin Dose 07/20 2.72 5 mg 07/21 3.78 Held 07/22 3.93 Hold 07/23 3.00 3 mg 07/24 2.68 3 mg 07/25 2.61 3 mg 07/26 2.58 3 mg 07/27 2.28 4 mg 07/28 2.21 4 mg 07/29 2.31 4 mg daily ordered; INR on Sun/ schedule 07/30 ---- 4 mg daily 07/31 2.13 4 mg daily 08/01 ---- 4 mg daily 08/02 ---- 4 mg daily 08/03 2.66 4 mg daily A/P: INR therapeutic; continue warfarin 4 mg daily. Will continue to monitor & make adjustments accordingly. Thank you for the consult. Delia Parada, PharmD, BCPS
--- NOTE | 2016-08-03 10:07 | NUR ---
CM SPOKE WITH PT; CONFIRMED WITH HIM THAT HE DOES HAVE ALL OF THE DIABETIC SUPPLIES (I.E. GLUCOMETER, STRIPS, ETC). HE SAID "I HAVE EVERYTHING THAT I NEED." HE HAD NO DC QUESTIONS/NEEDS FOR THIS WORKER.
[2016-08-03] MEDS: INSULIN LISPRO 100 UNIT/ML SQ PRN (10:34)
[2016-08-03] MEDS: WARFARIN 4 MG TABLET PO SCH (12:09)
--- NOTE | 2016-08-03 13:52 | NUR ---
PATIENT ALERT AND ORIENTED X 3. PATIENT CONTINENT OF BOWEL AND BLADDER. SMALL BM TODAY. NO C/O PAIN. PATIENT LUIS BREAKFAST AND LUNCH. PATIENT UP WITH ONE ASSIST WITH WHEELCHAIR AND GAIT BELT WITH SUPERVISION. BS 212 AT 10AM, PATIENT COVERED WITH SSI, SEE MAR. AWAITING D/C ORDERS. WILL CONT TO MONITOR.
--- NOTE | 2016-08-03 14:22 | DSPDOC ---
General Date Date DATE: 08/03/16 TIME: 14:19 Attending Physician Sukhjinder Pang MD Admitting Physician Sukhjinder Pang MD Consulting Physician Antionette Pope MD Admitting Diagnosis aCUTE ON CHRONIC LE WEAKNESS, RAPID PROGRESSION OF NEUROPATHY, DEPRESSION Discharge Diagnosis neuropathy, lumbar radiculopathy with acute onset weakness. Improvement in weakness with PT and OT. Laboratory Laboratory Tests Test 08/02/16 04:13 08/02/16 10:14 08/02/16 14:22 08/02/16 20:00 White Blood Count 10.0T/MM3 (4.5-11.0) Red Blood Count 4.00M/MM3 (4.50-5.90) Hemoglobin 11.6GM/DL (13.5-17.5) Hematocrit 35.7% (41-53) Mean Corpuscular Volume 89.3UM3 (80-100) Mean Corpuscular Hemoglobin 29.0UUG (26-34) Mean Corpuscular Hemoglobin Concent 32.5GM/DL (31-37) RDW Standard Deviation 39.7FL (36.9-50.2) Platelet Count 326T/MM3 (130-400) Mean Platelet Volume 9.7UM3 (9.4-12.4) Immature Granulocyte % (Auto) 0.3% (0.0-0.5) Neutrophils (%) (Auto) 67.4% (33-66) Lymphocytes (%) (Auto) 16.9% (23-45) Monocytes (%) (Auto) 10.1% (0-9.0) Eosinophils (%) (Auto) 5.0% (0-4) Basophils (%) (Auto) 0.3% (0-2) Absolute Immature Granulocyte (auto 0.03T/MM3 (0.00-0.03) Absolute Neutrophils (auto) 6.7T/MM3 (1.8-7.7) Absolute Lymphocytes (auto) 1.7T/MM3 (1-4.8) Absolute Monocytes (auto) 1.0T/MM3 (0-0.8) Absolute Eosinophils (auto) 0.5T/MM3 (0-0.5) Absolute Basophils (auto) 0.0T/MM3 (0-0.2) Turbidity < 20 (0-20) Sodium Level 138MEQ/L (134-144) Potassium Level 4.4MEQ/L (3.6-5) Chloride Level 103MEQ/L (98-107) Carbon Dioxide Level 27MEQ/L (22-30) Anion Gap 8MEQ/L (5-15) Blood Urea Nitrogen 16.0MG/DL (9-20) Creatinine 0.7MG/DL (0.8-1.5) Glomerular Filtration Rate Calc 110 BUN/Creatinine Ratio 23RATIO (6-26) Glucose Level 152MG/DL (75-110) Calculated Osmolality 270MOSM/KG (261-280) Calcium Level 8.4MG/DL (8.4-10.2) Icterus Index < 2 (0-7) Chemistry Specimen Hemolysis < 15 (0-25) Glucometer 228mg/dL (75-110) 123mg/dL (75-110) 182mg/dL (75-110) Test 08/03/16 04:22 08/03/16 06:26 08/03/16 10:28 Prothromb Time International Ratio 2.66 (0.76-1.04) Glucometer 148mg/dL (75-110) 212mg/dL (75-110) History of Present Illness 76 yo gentleman with hx of bilat leg weakness due to polyneuropathy/ radiculopathy of legs. 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 He worked with PT an OT and was seen by neurology. Currently on Prednisone taper, which has not helped significantly. He is still unable to walk without assist and cannot manage adl without assist. On coumadin due to hx of DVT.Initial eval performed 07/21/16 at 1900. Hospital Course 07/23-Niko Improved functional capacity. Continue therapies; may benefit from speech therapy for cognitive evaluation although I suspect he would be resistant. Met with Dr. Fox yesterday, full note pending but patient reports he does not believe further psychiatric care needed. Blood sugars moderately elevated, single-dose Lantus ordered for today and Amaryl dose return to 2 mg daily. Suspect blood sugars will improve with increasing activity and prednisone taper. B-12 initiated several days ago for B-12 deficiency, methylmalonic acid pending. INR dropping back into daily therapeutic range, warfarin resumed at 3 mg today. Continue to monitor. Will attempt to clarify with patient or PCP when patient's DVT/PE was an indication for prolonged therapy. 07/28/16 Continue to monitor blood sugars.this morning was the final dose of prednisone. Expect that blood sugars may decrease . Continue with Daily Vit B12 IM through 07/29, then weekly for 1 month, then monthly. Methylmalonic acid is 0.19 Which is normal. continue mirtazapine at current dose. INR today 2.21 and Coumadin management as per pharmacy dosing Continue to work with PT/OT Planning for home evaluation today by PT. 07/30/16 Will continue to monitor blood sugars on current regimen of Amaryl, Metformin and Sliding scale Humalog. Could consider increasing sliding scale if further hyperglycemia. Colace BID and will add Miralax daily for bowel motivation Continue with Daily Vit B12 IM through 07/29, then weekly for 1 month, then monthly. Methylmalonic acid is 0.19 INR today 2.31 and Coumadin management as per pharmacy dosing Continue to work with PT/OT for strengthening of lower extremities 08/01/16: [place]. Overall, patient appears to be doing well medically. Continue rehabilitation per Dr. Pang for strengthening and increasing functional abilities. Blood sugars slightly improved though remain elevated around 200. Will continue to monitor blood sugars closely and continue current regimen of Amaryl, Metformin and Sliding scale Humalog. Could consider increasing sliding scale if further hyperglycemia. Anticipate improved blood sugars with increasing activities and tapering of prednisone. Continue Colace BID and Miralax daily for bowel motivation. Continue with weekly Vit B12 IM for 1 month, then monthly. Methylmalonic acid is 0.19 (WNL) Nursing noted frequent urination. Will check UA and post-void residual now. He continues to have a depressed mood but refused additional psychiatric services per prior notes. Continue to monitor mood and for signs of worsening depression. Encourage participation in activities. Home visit went well and anticipate discharge in near future. Will recheck CBC and BMP in AM to monitor blood counts, electrolytes and renal function. 08/02/16 Reviewed I-PSS questioner indicating symptom severity with BPH. IPSS score is 24 indicating severe symptoms associated with BPH. Post-Void bladder scan done overnight indicated 327ML. Will start Flomax 0.4mg HS daily. Urologist apt made with [facility] Haque at [facility] on 3/27/17 at 3:30. Otherwise Continue to encourage work with PT/OT Continues to have depressed affect, Continue on Remeron Monitor blood sugars. Fasting BGM this morning 152. Continue with Metformin, Amaryl and sliding scale Humalog. Will discuss discharge plans with CM and Dr Pang later today at team meeting Problems: (1) Diabetic neuropathy Status: Chronic Assessment & Plan: cont with meds, pt will follow up with PCP. (2) Vitamin B12 deficiency Status: Acute Assessment & Plan: Supplemented during inpatien, cont with outpatient as ordered. (3) Chronic anticoagulation Status: Chronic Assessment & Plan: cont with coumadin. Pt will follow INR with PCP. (4) Bilateral lumbar radiculopathy Assessment & Plan: Use walker as needed for stability. neurontin for pain. Pt did have prednisone treatement during admit. (5) Non-insulin dependent type 2 diabetes mellitus Status: Chronic Assessment & Plan: managed by medical during admit. Will follow up with PCP. Code Status Full Code Home Meds Active Scripts Glimepiride (Amaryl) 2 Mg Tablet, 2 MG PO BIDBL for 30 Days, #60 TAB Prov:VALERIE MCCLURE APRN 08/03/16 Warfarin Sodium (Jantoven) 4 Mg Tablet, 4 MG PO NOON for 30 Days, #30 TAB Prov:VALERIE MCCLURE APRN 08/03/16 Docusate Sodium (Colace) 100 Mg Capsule, 100 MG PO BID for 30 Days, #60 CAP Prov:VALERIE MCCLURE APRN 08/03/16 Tamsulosin HCl (Tamsulosin HCl) 0.4 Mg Cap.er.24h, 0.4 MG PO HS for 30 Days, # 30 CAP Prov:VALERIE MCCLURE APRN 08/03/16 Cyanocobalamin (Cyanocobalamin Injection) 1,000 Mcg/Ml Vial, 1000 MCG IM DAILY for 6 Days, VIAL Prov:ANTIONETTE POPE MD 07/21/16 Levothyroxine Sodium (Synthroid) 25 Mcg Tablet, 25 MCG PO ACB for hypothyroid, # 30 TAB Prov:ANTIONETTE POPE MD 07/21/16 Acetaminophen (Tylenol) 325 Mg Tablet, 650 MG PO Q5H Y for PAIN for 30 Days, # 240 TAB Prov:ANTIONETTE POPE MD 07/21/16 Reported Medications Mirtazapine (Mirtazapine) 15 Mg Tablet, 15 MG PO HS, TAB Take 1 tablet, by mouth, 1 time a day at bedtime. 07/20/16 Metformin HCl (Metformin HCl) 1,000 Mg Tablet, 1 TAB PO BIDWM, TAB Take one tablet, by mouth, twice daily with meals 09/08/15 Discontinued Scripts Prednisone (Prednisone) 10 Mg Tablet, 10 MG PO WB for 7 Days, #7 TAB start 07/26 Prov:ANTIONETTE POPE MD 07/21/16 Prednisone (Prednisone) 20 Mg Tablet, 20 MG PO WB for 3 Days, #3 TAB 07/23- Prov:ANTIONETTE POPE MD 07/21/16 Prednisone (Prednisone) 10 Mg Tablet, 30 MG PO WB for 1 Day, #3 TAB Prov:ANTIONETTE POPE MD 07/21/16 [# Warfarin Protocol #] MISC No Conflict Check, 0 MC NOTE Prov:ANTIONETTE POPE MD 07/21/16 Glimepiride (Glimepiride) 1 Mg Tablet, 1 TAB PO DAILY, #30 TAB 5 Refills Prov:ANTIONETTE POPE MD 07/21/16 Face to Face Encounter I met with patient on the day of dismissal and discussed follow up appointments , medications, and safety plan. Discharge Disposition To home with family support and home health. Copies To 1: ZAC LOPEZ MD, CHARLES E MD Aug 03, 2016 14:22
--- NOTE | 2016-08-03 14:50 | NUR ---
DISCHARGE NOTE. PATIENT DISCHARGE PRESCRIPTIONS,DIET, ACTIVITY, AND F/U APPTS DISCUSSED WITH PATIENT AND SONS. PAPERWORK GIVEN TO PATIENT AND SONS. PATIENT ARMBAND REMOVED. PATIENT LEFT VIA WHEELCHAIR WITH HOSPICE SPIRITUAL CARE COORDINATOR TO FRONT ENTRANCE.
--- NOTE | 2016-08-04 11:38 | NUR ---
CM CALL FROM MEKA WITH [facility]. SHE SAID SHE ACTUALLY DOES NEED THE HOME HEALTH ORDERS TO START, AND THEN THEY WILL FOLLOW UP WITH DR. LOPEZ. CONFIRMED WITH DR. REDDY HE IS STILL AGREEABLE TO SIGNING HOME HEALTH ORDERS. FAXED ORDERS TO MEKA.
--- NOTE | 2016-08-04 16:44 | PDONTRACK ---
Right on Track Program Date of Discharge Aug 03, 2016 at 14:50 Scheduled Cyanocobalamin (Cyanocobalamin Injection), 1,000 MCG IM DAILY Docusate Sodium (Colace), 100 MG PO BID Glimepiride (Amaryl), 2 MG PO BIDBL Levothyroxine Sodium (Synthroid), 25 MCG PO ACB Metformin HCl (Metformin HCl), 1 TAB PO BIDWM, (Reported) Mirtazapine (Mirtazapine), 15 MG PO HS, (Reported) Tamsulosin HCl (Tamsulosin HCl), 0.4 MG PO HS Warfarin Sodium (Jantoven), 4 MG PO NOON Scheduled PRN Acetaminophen (Tylenol), 650 MG PO Q5H PRN for PAIN Discontinued Medications Glimepiride (Glimepiride), 1 TAB PO DAILY Prednisone (Prednisone), 30 MG PO WB Prednisone (Prednisone), 20 MG PO WB Prednisone (Prednisone), 10 MG PO WB [# Warfarin Protocol #], 0 MC NOTE Right on Track Program: 24 Hour Follow-Up Date of Discharge: Aug 03, 2016 Discharge Summary Received: Yes Care Plan Received: Yes Follow up: Follow Up Appt. Scheduled (PCP and Urology apt scheduled.) Total LACE Score: 10 Recommendations for follow-up Overall Mr Henry is doing well. he reports having some difficulty getting up to use the bathroom last night. His son is planning to re-arrange his bedroom to make it easier to get to the bathroom at night. He complains that continues to have frequent urination at night. We discussed that he has received 2 doses of Flomax and this will hopefully improve. Planning for follow with Urologist on Monday 08/07 at [facility] No questions regarding discharge instructions or medications Problems: (1) Debility Status: Acute (2) Generalized muscle weakness Status: Acute (3) Vitamin B12 deficiency Status: Acute Assessment & Plan: B 12 injections initiated prior to transfer to rehabilitation; methylmalonic acid pending as of 07/25 (4) Diabetic neuropathy Status: Chronic (5) Non-insulin dependent type 2 diabetes mellitus Status: Chronic Assessment & Plan: A1c 6.5 on 07/20/16 (6) Anemia Status: Chronic (7) Protein-calorie malnutrition, moderate Status: Acute Assessment & Plan: present on admission - prealbumin 8.2. (8) Depression Status: Chronic Assessment & Plan: Mirtazapine initiated approximately 07/15/16 per PCP (9) Chronic anticoagulation Status: Chronic Assessment & Plan: warfarin treatment for chronic DVT. (10) TIA (transient ischemic attack) Status: Chronic Assessment & Plan: history of TIA. 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
[2016-08-05] MEDS ORDERED: CYANOCOBALAMIN (B-12) 1000mcg/ml INJECTION IM SCH (09:00)
== END 2016-08-03 14:50 | disposition home health service (06) | DRG 945 ==
PROVIDERS: ADMIT Family Medicine; ATTEND Family Medicine
PROC: F07Z9FZ Gait Training/Functional Ambulation Treatment using Assistive, Adaptive, Supportive or Protective Equipment (ICD-10-PCS; principal; 2016-07-21)
PROC: F07M6ZZ Therapeutic Exercise Treatment of Musculoskeletal System - Whole Body (ICD-10-PCS; 2016-07-21)
PROC: F08Z4ZZ Home Management Treatment (ICD-10-PCS; 2016-07-21)
DX: R53.81 Other malaise (principal); F33.1 Major depressive disorder, recurrent, moderate; E44.0 Moderate protein-calorie malnutrition; M62.81 Muscle weakness (generalized); E11.40 Type 2 diabetes mellitus with diabetic neuropathy, unspecified; M54.16 Radiculopathy, lumbar region; D51.9 Vitamin B12 deficiency anemia, unspecified; Z68.31 Body mass index [BMI] 31.0-31.9, adult; Z79.01 Long term (current) use of anticoagulants; Z79.52 Long term (current) use of systemic steroids; Z86.718 Personal history of other venous thrombosis and embolism; Z86.73 Personal history of transient ischemic attack (TIA), and cerebral infarction without residual deficits
CPT/HCPCS: 36415; 80048; 81003; 82948; 85025; 85610